=== PATIENT | female | born 1950 | race Caucasian/White ===

== ENCOUNTER 2018-06-19 19:29 | Emergency (ER) | payer MEDICARE ==
[~2018-06-19 19:29] MED LIST: ACETAMINOPHEN325 M1 PO; ALBUTEROL SULF8.5 GM NEB; ALENDRONATE SOD70 MG PO; ALPRAZOLAM ER1 MG PO; AMITIZA24 MCG PO; AMLODIPINE BESYL5 MG PO; AMLODIPINE PO; BACLOFEN10 MG PO; BENZONATATE100 MG PO; BUPROPION HCL75 MG PO; CHLORZOXAZONE500 MG PO; CLONIDINE HCL0.1 MG PO; DICYCLOMINE HCL20 MG PO; FLUOXETINE HCL20 MG PO; FLUOXETINE HCL40 MG PO; FLUTICASONE; FUROSEMIDE40 MG PO; GABAPENTIN400 MG PO; GEODON20 MG PO; K DUR10 MEQ PO; LIDOCAINE1 EA TD; METRONIDAZOLE500 MG PO; NAPROXEN500 MG PO; NORCO 5-325 TA1 EACH PO; PANTOPRAZOLE SO40 MG PO; PROLIA60 MG/1 ML INJ; PROPRANOLOL HCL40 MG PO; REQUIP0.5 MG PO; SUCRALFATE PO; TAMSULOSIN HCL0.4 MG PO; TRAZODONE HCL100 MG PO; ULTRAM50 MG PO; VICODIN ES 7.51 EACH PO; ZOFRAN4 MG PO; [UNRECOGNIZED DRUG - MIXTURE]
== END 2018-06-19 20:07 | disposition short-term general hospital (02) ==
LOC: ER 19:29
DX: M54.9 Dorsalgia, unspecified (principal)

== ENCOUNTER 2018-06-22 08:16 | Emergency (ER) | payer MEDICARE ==
[~2018-06-22] VITALS: Ht 165.1 cm; Wt 74.8 kg
[2018-06-22] MEDS ORDERED: ATORVASTATIN CA20 MG PO (09:01)
[2018-06-22] MEDS ORDERED: HYDROMORPHONE 1MG/1ML INJ IV STA (09:06)
[2018-06-22] MEDS ORDERED: ONDANSETRON HCL INJ 2 MG/ML VIAL IV STA (09:06)
[2018-06-22] MEDS ORDERED: SERTRALINE HCL50 MG (09:07)
[2018-06-22] MEDS ORDERED: HYDROMORPHONE 2MG/ML 2 MG/ML ML IV ONE (09:15)
[2018-06-22 09:17] LABS: CLARITY,URINE SL CLOUDY (CLEAR); COLOR,URINE YELLOW (YELLOW); KETONES,URINE NEGATIVE (NEGATIVE); LEUKOCYTE ESTERASE ,URINE NEGATIVE (NEGATIVE); NITRITE,URINE NEGATIVE (NEGATIVE); PROTEIN,URINE DIPSTICK NEGATIVE (NEGATIVE); URINE UROBILINOGEN 0.2 mg/dL (0.2 - 1)
[2018-06-22 09:18] LABS: BILIRUBIN,URINE NEGATIVE (NEGATIVE)
[2018-06-22 09:28] LABS: EPITHELIAL CELLS,URINE FEW /LPF; RBC,URINE 0-5 /HPF (0-5)
[2018-06-22 09:32] LABS: TRANSITIONAL EPI CELLS,URINE RARE
--- NOTE | 2018-06-22 10:16 | Diagnostic Imaging Report ---
EXAMINATION: CT of the lumbar spine HISTORY: Acute low back pain with bilateral radiculopathy COMPARISON: Abdomen CT on 06/24/2017 TECHNIQUE: Multidetector helical axial images were obtained without contrast from L1 to S1. The images were reconstructed using bone and soft tissue algorithms and were viewed in axial, sagittal, and coronal planes. Dose modulation, iterative reconstruction, and/or weight based adjustment of the mA/kV was utilized to reduce the radiation dose to as low as reasonably achievable. FINDINGS: Alignment: Prominent lumbar dextroscoliosis from T12 to L4. Thoracolumbar kyphosis. Right lateral spondylolisthesis at L3-L4. Vertebral bodies: Normal height and density. Prominent chronic endplate degenerative changes mainly on the left side at L2-L3 and T12-L1. Paraspinal muscles: Mild atrophy of the paraspinal muscles. Incidentally noted prominent Tarlov cysts from S1-S2 to S3-S4. Intervertebral disks: L1-L2: Symmetric disc bulge and facet arthrosis. Mild right foraminal stenoses. L2-L3: Decreased disc height and vacuum phenomena, asymmetric to the right disc osteophyte and facet arthrosis. Moderate right foraminal stenoses. L3-L4: Asymmetric to the right disc bulge, vacuum phenomenon and facet arthrosis. Mild right foraminal stenoses. L4-L5: Asymmetric to the right disc bulge, bilateral facet arthrosis. Mild to moderate bilateral foraminal stenoses. L5-S1: Mild symmetric disc bulge and facet arthrosis. Mild foraminal narrowing mainly on the right. IMPRESSION: 1. No acute fractures or dislocations. 2. Persistent prominent lumbar kyphoscoliosis as described. 3. Moderate foraminal stenosis on the right at L2-L3 and mild at L3-4 as well as mild to moderate bilaterally at L4-5 due to degenerative changes and scoliosis. Signed by: Dr. Gina Coleman M.D. on 06/22/2018 10:12 AM
[2018-06-22 11:04] VITALS: BP 158/85
== END 2018-06-22 11:26 | disposition home or self-care (01) ==
LOC: ER 08:16
DX: M54.5 Low back pain (principal); S39.012A Strain of muscle, fascia and tendon of lower back, initial encounter; N30.90 Cystitis, unspecified without hematuria; G35 Multiple sclerosis; J44.9 Chronic obstructive pulmonary disease, unspecified
CPT/HCPCS: 72131; 81001; 87086; 99284; J1170; J2405

== ENCOUNTER → 2018-07-17 | Day surgery (SDC) | payer OTHER ==
--- NOTE | 2018-07-14 13:15 | Diagnostic Imaging Report ---
EXAMINATION: CHEST 2 VIEWS INDICATION: \S\PER PROTOCOL \S\PRE ADMIT COMPARISON: CT abdomen and pelvis 02/11/2017 FINDINGS: PA and lateral views TUBES and LINES: None. LUNGS: Lungs are well inflated. Linear scarring in the left retrocardiac region is unchanged. Near resolution of previously noted reticular nodular opacities in the left lower lobe. Mild bronchiectasis in both lower lobes are stable. No new consolidations or pulmonary edema. PLEURA: No pleural effusion or pneumothorax. HEART AND MEDIASTINUM: The cardiomediastinal silhouette is unremarkable. BONES AND SOFT TISSUES: Cervical spine fusion. Soft tissues are unremarkable. UPPER ABDOMEN: No free air under the diaphragm. IMPRESSION: No acute thoracic abnormality. Signed by: Dr. Lali Yost M.D. on 07/14/2018 1:12 PM
[2018-07-14 13:36] LABS: BASOPHILS # (AUTO) 0.1 (0.0-0.1); BASOPHILS % 0.7 % (0.0-1.0); EOSINOPHILS # (AUTO) 0.2 (0.0-0.4); EOSINOPHILS % 2.7 % (0.0-6.0); HEMATOCRIT 36.3 % (34.2-44.1); HEMOGLOBIN 11.9 g/dL (12.0-16.0); LYMPHOCYTES # (AUTO) 1.6 (1.0-3.2); LYMPHOCYTES % 19.7 % (18.0-39.1); MEAN CORPUSCULAR HEMOGLOBIN 28.5 pg (28-32); MEAN CORPUSCULAR HGB CONC 32.8 g/dL (31-35); MEAN CORPUSCULAR VOLUME 86.8 fL (81-99); MONOCYTES # (AUTO) 0.5 (0.2-0.8); MONOCYTES % 6.4 % (4.4-11.3); NEUTROPHILS # (AUTO) 5.8 (2.1-6.9); PLATELET COUNT 395 x10e3/uL (140-360); RED BLOOD COUNT 4.18 x10e6/uL (3.6-5.1); RED CELL DISTRIBUTION WIDTH 13.6 % (11.7-14.4)
[~2018-07-17] MED LIST changes: +ATORVASTATIN CA20 MG PO; +BUPIVACAINE 0.5%/EPI 30 ML SDV INJ ONE; +BUPROPION HCL100 MG PO; +CARVEDILOL3.125 MG PO; +CEFTRIAXONE SOD 1 GM VIAL ONE; +CLINDAMYCIN PHOS 900MG/ 50ML 50 ML IV ONE; +DEXAMETHASONE SOD PHOS INJ 4 MG/ML VIAL ONE; +EPHEDRINE SULFATE INJ 50 MG/10 ML SYR ONE; +FENTANYL CITRATE/PF 100MCG/2 ML INJ ONE; +FLOMAX0.4 MG PO; +GABAPENTIN300 MG PO; +LIDOCAINE 2%/ EPINEPHRINE 20ML MDV ONE; +LIDOCAINE HCL 2% LOCAL INJ 5 ML SDV VIAL INJ ONE; +MIDAZOLAM HCL 2 MG/2 ML VIAL ONE; +ONDANSETRON HCL INJ 2 MG/ML VIAL ONE; +PROPOFOL IV EMULSION 10 MG/ML 20 ML VIAL ONE; +ROCURONIUM BROMIDE 10 MG/ML 5ML VIAL ONE; +SERTRALINE HCL50 MG; +SERTRALINE HCL50 MG PO; +SEVOFLURANE INHAL SOLN 250 ML PEN BTL ONE; +SUCCINYLCHOLINE 200 MG/10 ML SYR ONE
[2018-07-17 17:25] VITALS: BP 157/76
--- OUTSIDE RECORDS SUMMARY | 2018-07-21 13:25 | XMS REPORT | Summary of Care ---
Author Author Anne Thomas Organization Unknown Address Unknown Phone Unavailable Care Team Providers Care Medical Office Administrator Name Role Phone Anne Thomas Unavailable Unavailable LIZETTE Roman, LUBA Unavailable Unavailable ASHA Roman, REJI Unavailable Unavailable TIFFANY Roman, ANNETTE Unavailable Unavailable MAGUI PPaxtonAPaxton, DAPHNIE Unavailable Unavailable HEATH BRONSON UT, DOLORES Doe Unavailable Unavailable HEATH Roman, DOLORES Unavailable Unavailable ASHA BRONSON PA, REJI Unavailable Unavailable MAGUI PA UT, DAPHNIE CALI Unavailable Unavailable BOURNE AHP UT, BRIAN Unavailable Unavailable Unavailable Unavailable Functional Status Name Dates Details Functional status health issues are not documented Status: Name Dates Details Cognitive status health issues are not documented Status: Problems Name Dates Details Fracture of femur, distal, right, closed (821.20, S72.401A) Status: Active Synovial cyst of left popliteal space (727.51, M71.22) Status: Active Pelvic pain (R10.2) Status: Active High globulin level Status: Active Vitamin D deficiency (268.9, E55.9) Status: Active Impaired fasting glucose (790.21, R73.01) Status: Active Left knee pain (719.46, M25.562) Status: Active Barbosa's cyst of knee (727.51, M71.20) Status: Active Urinary incontinence, unspecified type (788.30, R32) Status: Active Chronic superficial gastritis without bleeding (535.10, K29.30) Status: Active History of peptic ulcer disease (V12.71, Z87.11) Status: Active History of SIADH (V12.29, Z86.39) Status: Active History of seizure (V12.49, Z87.898) Status: Resolved Osteoporosis (733.00, M81.0) Status: Active SIADH (syndrome of inappropriate ADH production) (253.6, E22.2) Status: Active Constipation, chronic (564.00, K59.09) Status: Active History of pancreatitis (V12.79, Z87.19) Status: Active Incontinence of feces, unspecified fecal incontinence type (787.60, R15.9) Status: Active History of watermelon inspector current use of systemic steroids (V58.65, Z79.52) Status: Resolved Urinary frequency (788.41, R35.0) Status: Active Stomatitis and mucositis (528.00, K12.1) Status: Active Hepatitis C virus infection, unspecified chronicity (070.70, B19.20) Status: Active Other hemorrhoids (455.6, K64.8) Status: Active Cervicalgia (723.1, M54.2) Status: Active Right hand weakness (728.87, R29.898) Status: Active S/P cervical spinal fusion (V45.4, Z98.1) Status: Active Bronchiectasis (494.0, J47.9) Status: Active Urine frequency (788.41, R35.0) Status: Active Cubital tunnel syndrome, bilateral (354.2, G56.23) Status: Active On home oxygen therapy (V46.2, Z99.81) Status: Active Dysuria (788.1, R30.0) Status: Active Abnormal thyroid blood test (790.6, R79.89) Status: Active Urinary tract infection (599.0, N39.0) Status: Active Abrasion of right foot, sequela (906.2, S90.811S) Status: Active Low HDL (under 40) (272.5, E78.6) Status: Active At risk for cardiovascular event (V49.89, Z91.89) Status: Active Multiple sclerosis (340, G35) Status: Active Numbness and tingling (782.0, R20.0) Status: Active COPD (chronic obstructive pulmonary disease) (496, J44.9) Status: Active Recurrent UTI (599.0, N39.0) Status: Active Flu vaccine need (V04.81, Z23) Status: Active Acute UTI (599.0, N39.0) Status: Active RLS (restless legs syndrome) (333.94, G25.81) Status: Active Tremor (781.0, R25.1) Status: Active Anemia (285.9, D64.9) Status: Active Encounter for screening for eye and ear disorders (V80.2, Z13.5) Status: Active Neuropathy (355.9, G62.9) Status: Active Locking finger joint (718.94, M24.849) Status: Active Need for shingles vaccine (V04.89, Z23) Status: Active Need for Tdap vaccination (V06.1, Z23) Status: Active Carpal tunnel syndrome of left wrist (354.0, G56.02) Status: Active Chronic pain (338.29, G89.29) Status: Active Dyspnea (786.09, R06.00) Status: Active Benign essential HTN (401.1, I10) Status: Active Anxiety (300.00, F41.9) Status: Active Depression (311, F32.9) Status: Active Medications Name Dates Details AmLODIPine Besylate 5 MG Oral Tablet TAKE 1 TABLET DAILY DIRECTED. Quantity: 30 DAPHNIE AWAD * Start : 24-Oct-2017 Active Fluticasone Propionate 50 MCG/ACT Nasal Suspension * Refills: 0 * Start : 24-Oct-2017 Active 9.9 ML Bottle Diclofenac Sodium 1 % Transdermal Gel APPLY 4 GRAMS TOPICALLY TO AFFECTED AREA (LOWER EXTREMITIES) 4 TIMES DAILY. DO N OT APPLY MORE THAN 16 GRAMS DAILY TO ANY ONE AFFECTED JOINT * Quantity: 5 Refills: 3 LUBA BAUER M.D. * Start : 12-Nov-2017 Active 100 GM Tube Albuterol Sulfate (2.5 MG/3ML) 0.083% Inhalation Nebulization Solution USE 1 UNIT DOSE EVERY 4-6 HOURS NEEDED FOR WHEEZING, SOB * Quantity: 2 Refills: 2 DAPHNIE AWAD Active 60 x 3 ML Plas Cont Iron 325 (65 Fe) MG Oral Tablet TAKE 1 TABLET TWICE DAILY WITH MEALS. * Quantity: 60 Refills: 2 REJI BARRY M.D. * Start : 09-Jan-2018 Active Tdap (Adacel) Inject at pharmacy as directed * Quantity: 1 Refills: 0 DAPHNIE AWAD * Start : 27-Apr-2018 Active 0.5 ML Syringe Atorvastatin Calcium 40 MG Oral Tablet TAKE 1 TABLET DAILY. * Quantity: 90 Refills: 1 DAPHNIE AWAD Active Sertraline HCl - 100 MG Oral Tablet TAKE 1.5 TABLET DAILY FOR 5 DAYS AND THEN TAKE 2 TABLET DAILY. * Quantity: 60 Refills: 2 ANNETTE ALLEN M.D. Active Carvedilol 6.25 MG Oral Tablet TAKE 1 TABLET BY MOUTH TWICE DAILY WITH MEALS * Quantity: 60 Refills: 0 SATTAR M.Yael, REJI * Start : 03-Jul-2018 Active Shingrix 50 MCG Intramuscular Suspension Reconstituted IM: 0.5 mL 2-dose series at 0 and 2 to 6 months * Quantity: 1 Refills: 1 SILVERTAR Abel, REJI * Start : 03-Jul-2018 Active Alendronate Sodium 70 MG Oral Tablet TAKE 1 TABLET BY MOUTH ONCE A WEEK * Quantity: 4 Refills: 0 DAPHNIE AWAD * Start : 10-Jul-2018 Active GlycoLax Oral Powder MIX 1 CAPFUL IN 8 OUNCES OF WATER AND DRINK AT BEDTIME NEEDED FOR CONSTIPATIO N. * Refills: 0 * Start : 24-Oct-2017 Active 119 GM Bottle Tamsulosin HCl - 0.4 MG Oral Capsule TAKE 1 CAPSULE DAILY * Quantity: 90 Refills: 1 * Start : 24-Oct-2017 Active Nebulizer/Tubing/Mouthpiece KIT USE DIRECTED. * Quantity: 1 Refills: 0 SATTAR M.Marta., REJI * Start : 29-Dec-2017 Active Tdap (Adacel) IM X 1 * Quantity: 1 Refills: 0 SATTAR M.D., REJI * Start : 03-Jul-2018 Active 0.5 ML Syringe BuPROPion HCl ER (SR) 100 MG Oral Tablet Extended Release 12 Hour TAKE 1 TABLET DAILY. * Quantity: 30 Refills: 1 ANNETTE ALLEN M.D. * Start : 10-Jul-2018 End : 13-Sep-2018 Active LORazepam 1 MG Oral Tablet TAKE 1 TABLET DAILY NEEDED. * Quantity: 10 Refills: 0 ANNETTE ALLEN M.D. * Start : 15-Jul-2018 Active Allergies and Adverse Reactions Name Dates Details No Known Drug Allergies (Allergy) Status: Active Past Medical History Name Dates Details History of arthritis (V13.4, Z87.39) Status: Resolved History of Hospital discharge follow-up (V67.59, Z09) Status: Resolved History of Leg pain (729.5, M79.606) Status: Resolved History of Leg swelling (729.81, M79.89) Status: Resolved History of Limb pain (729.5, M79.609) Status: Resolved History of watermelon inspector current use of systemic steroids (V58.65, Z79.52) Status: Resolved History of seizure (V12.49, Z87.898) Status: Resolved History of weakness (V13.89, Z87.898) Status: Resolved Procedures Procedure Dates Details [QLH] HEPATITIS A AB, TOTAL Date: 10-Jul-2018 [QLH] HEPATITIS B SURFACE ANTIBODY (QUANT) Date: 10-Jul-2018 [QH] HEPATITIS B SURFACE ANTIGEN W/REFL CONFIRM Date: 10-Jul-2018 XRAY Chest 2 views [id number] Date: 10-Jul-2018 History of Cervical laminectomy Completed History of section Completed History of Knee surgery Completed Immunization Name Dates Details Fluzone Quadrivalent 0.5 ML Intramuscular Suspension Prefilled Syringe on: 06-Aug-2017 Prevnar 13 Intramuscular Suspension on: 06-Aug-2017 Fluzone High-Dose 0.5 ML Intramuscular Suspension Prefilled Syringe Lot #: [id number] on: 20-Jun-2018 Family History Name Dates Details FHx: Parkinson's disease (V17.2, Z82.0) Status: Active Name Dates Details FHx: colon cancer (V16.0, Z80.0) Status: Active Family history of liver cancer (V16.0, Z80.0) Status: Active Social History Name Dates Details - Status: Name Dates Details Former smoker Vital Signs Date Test Result Details [id number]-[id number] Physical Findings 21 Status: Comments: RASHAAD-7 Screening 72-Faq-252303:30 Physical Findings 17 Status: Comments: PHQ-9 Adult Depression Screening 83-Toa-[id number]:24 BP Systolic 121 mm[Hg] Status: Comments: Location: LUE; Position: Sitting BP Diastolic 71 mm[Hg] Status: Comments: Location: LUE; Position: Sitting Height 66 in Status: Weight 160.3125 lb Status: Body Mass Index Calculated 25.88 kg/m2 Status: Body Surface Area Calculated 1.82 m2 Status: Temperature 96.4 f Status: Comments: Method: Temporal Heart Rate 83 /min Status: Respiration Rate 16 /min Status: 5-Oct-43917:15 BP Systolic 176 mm[Hg] Status: Comments: Location: LUE; Position: Sitting BP Diastolic 90 mm[Hg] Status: Comments: Location: LUE; Position: Sitting Heart Rate 86 /min Status: :10 BP Systolic 158 mm[Hg] Status: Comments: Location: LUE; Position: Sitting BP Diastolic 92 mm[Hg] Status: Comments: Location: LUE; Position: Sitting Height 66 in Status: Weight 159.2 lb Status: Body Mass Index Calculated 25.7 kg/m2 Status: Body Surface Area Calculated 1.82 m2 Status: Temperature 97.5 f Status: Comments: Method: Oral Heart Rate 86 /min Status: Respiration Rate 16 /min Status: O2 SAT 100 % Status: Comments: Source: Nasal Cannula :28 BP Systolic 156 mm[Hg] Status: BP Diastolic 85 mm[Hg] Status: Heart Rate 92 /min Status: :27 BP Systolic 153 mm[Hg] Status: Comments: Location: LUE; Position: Sitting BP Diastolic 84 mm[Hg] Status: Comments: Location: LUE; Position: Sitting Height 66 in Status: Weight 165.5 lb Status: Body Mass Index Calculated 26.71 kg/m2 Status: Body Surface Area Calculated 1.85 m2 Status: Temperature 96.7 f Status: Comments: Method: Temporal Heart Rate 78 /min Status: Respiration Rate 16 /min Status: :36 BP Systolic 134 mm[Hg] Status: BP Diastolic 76 mm[Hg] Status: Heart Rate 87 /min Status: :35 BP Systolic 144 mm[Hg] Status: Comments: Location: LUE; Position: Sitting BP Diastolic 81 mm[Hg] Status: Comments: Location: LUE; Position: Sitting Height 66 in Status: Weight 164.4375 lb Status: Body Mass Index Calculated 26.54 kg/m2 Status: Body Surface Area Calculated 1.84 m2 Status: Temperature 97.7 f Status: Comments: Method: Temporal Heart Rate 84 /min Status: Respiration Rate 16 /min Status: :43 BP Systolic 132 mm[Hg] Status: Comments: Location: LUE; Position: Sitting BP Diastolic 84 mm[Hg] Status: Comments: Location: LUE; Position: Sitting Height 66 in Status: Weight 161 lb Status: Body Mass Index Calculated 25.99 kg/m2 Status: Body Surface Area Calculated 1.82 m2 Status: Temperature 97.8 f Status: Comments: Method: Temporal Heart Rate 102 /min Status: Respiration Rate 16 /min Status: Results Date Description Value Details [id number] [O] Urine Dipstick (In Office) Glucose NEGATIVE (Normal) LEUKOCYTES ++ (Abnormal) NITRITE NEGATIVE (Normal) UROBILINOGEN NORMAL (Normal) PROTEIN TRACE pH 5 (Normal) URINE BLOOD TRACE SPECIFIC GRAVITY 1020 (Normal) KETONES NEGATIVE (Normal) BILIRUBIN NEGATIVE (Normal) COLOR URINE YELLOW (Normal) :00 [[facility]] CULTURE, URINE, ROUTINE CULTURE (Abnormal) Comments: CULTURE, URINE, ROUTINE MICRO NUMBER: [id number] TEST STATUS: FINAL SPECIMEN SOURCE: NOT GIVEN SPECIMEN QUALITY: ADEQUATE RESULT: Greater than 100,000 CFU/mL of [place] a coli (ESBL) E.coli (ESBL) INT SILAS AMOX/CLAVULANATE S 4 AMPICILLIN R >=32 1 AMP/SULBACTAM S 8 CEFAZOLIN R >=64 2 CEFEPIME S 2 CEFTRIAXONE R >=64 CIPROFLOXACIN R >=4 GENTAMICIN S <=1 IMIPENEM S <=0.25 LEVOFLOXACIN R >=8 NITROFURANTOIN S <=16 PIP/TAZOBACTAM S <=4 TOBRAMYCIN S <=1 TRIMETHOPRIM/SULFA S <=20 ESBL RESULT: * 3S=Susceptible I=Intermediate R=Resistant *=Not TestedNR=Not Reported NN=See Therapy CommentsTHERAPY COMMENTS Note 1: Extended spectrum beta-lactamase (ESBL) producing organisms demonstrate decreased activity with penicillins, cephalosporins and aztreonam. Note 2: For uncomplicated UTI caused by E. coli, K. pneumoniae or P. mirabilis: Cefazolin is susceptible if SILAS <32 mcg/mL and predicts susceptible to the oral agents cefaclor, cefdinir, cefpodoxime, cefprozil, cefuroxime, cephalexin and loracarbef. Note 3: The organism has been confirmed as an ESBL segment producer. Plan of Care Name Dates Details Planned Observations Planned Goals not documented Planned Encounters Cardiology Referral Appointment; REJI BARRY M.D. On: 23-Jul-2018 10:30 Appointment; ROBERT MALIN M.D. On: 17-Aug-2018 14:30 Appointment; ETHAN HAQUE NP On: 19-Aug-2018 13:00 Instructions Name Dates Details Instructions not documented Encounters Appointment; ALYSON WALKER PA Encounter Diagnosis: Problem not documented On: 26-Aug-2016 11:45 Appointment; DAPHNIE KILGORE P.A. Encounter Diagnosis: Problem not documented On: 24-Oct-2017 12:30 Appointment; HYUN HERNANDEZ Encounter Diagnosis: Problem not documented On: 04-Nov-2017 14:00 Appointment; LUBA BAUER M.D. Encounter Diagnosis: Problem not documented On: 12-Nov-2017 15:00 Appointment; HIWOT BAH P.A. Encounter Diagnosis: Problem not documented On: 26-Nov-2017 9:15 Appointment; DAPHNIE KILGORE P.A. Encounter Diagnosis: Problem not documented On: 02-Dec-2017 13:30 Appointment; LUBA BAUER M.D. Encounter Diagnosis: Problem not documented On: 24-Dec-2017 14:00 Appointment; REJI BARRY M.D. Encounter Diagnosis: Problem not documented On: 26-Dec-2017 13:30 Appointment; REJI BARRY M.D. Encounter Diagnosis: Problem not documented On: 29-Dec-2017 13:30 Appointment; REJI BARRY M.D. Encounter Diagnosis: Problem not documented On: 09-Jan-2018 15:00 Appointment; REJI BARRY M.D. Encounter Diagnosis: Problem not documented On: 03-Feb-2018 13:00 Appointment; INESSA CADET M.D. Encounter Diagnosis: Problem not documented On: 25-Feb-2018 13:00 Appointment; DAPHNIE KILGORE P.A. Encounter Diagnosis: Problem not documented On: 13-Mar-2018 14:00 Appointment; LUBA BAUER M.D. Encounter Diagnosis: Problem not documented On: 19-Mar-2018 15:15 Appointment; REJI BARRY M.D. Encounter Diagnosis: Problem not documented On: 06-Apr-2018 14:00 Appointment; GIFTY RAMSEY LCSW Encounter Diagnosis: Problem not documented On: 09-Apr-2018 13:00 Appointment; DAPHNIE KILGORE P.A. Encounter Diagnosis: Problem not documented On: 27-Apr-2018 9:45 Appointment; DAPHNIE KILGORE P.A. Encounter Diagnosis: Problem not documented On: 07-May-2018 11:30 Appointment; GIFTY RAMSEY LCSW Encounter Diagnosis: Problem not documented On: 02-Jun-2018 14:00 Appointment; REJI BARRY M.D. Encounter Diagnosis: Problem not documented On: 03-Jun-2018 10:30 Appointment; GIFTY RAMSEY LCSW Encounter Diagnosis: Problem not documented On: 16-Jun-2018 11:00 Appointment; BRIAN BOURNE P.A. Encounter Diagnosis: Problem not documented On: 20-Jun-2018 9:30 Appointment; DAPHNIE KILGORE P.A. Encounter Diagnosis: Problem not documented On: 23-Jun-2018 9:45 Appointment; REJI BARRY M.D. Encounter Diagnosis: Problem not documented On: 03-Jul-2018 10:00 Appointment; ALEXA RENEE M.D. Encounter Diagnosis: Problem not documented On: 10-Jul-2018 9:30 Appointment; ANNETTE ALLEN M.D. Encounter Diagnosis: Problem not documented On: 15-Jul-2018 13:00
--- NOTE | 2018-08-26 00:57 | Operative Report ---
DATE OF PROCEDURE: July 17, 2018 PREOPERATIVE DIAGNOSIS: Refractory urge incontinence. POSTOPERATIVE DIAGNOSIS: Refractory urge incontinence. PROCEDURES PERFORMED 1. Complete InterStim system implantation with incision and implantation of tined quadripolar lead electrodes into the left foramen, S3. 2. Fluoroscopic guidance for needle placement. 3. Subcutaneous implantation of sacral nerve neurostimulator. 4. Electronic analysis and complex programming. ANESTHESIA: General. COMPLICATIONS: None. CLINICAL SUMMARY: Paulette Ley is a 67-year-old woman with refractory urge incontinence. She also has a history of urinary retention and has been managed with Flomax. The patient had failed other oral medications as well as behavioral therapy. She had a successful percutaneous InterStim stimulation test as an outpatient and elected to proceed with InterStim implant. She understands the risks of bleeding, infection, injury to adjacent structures, incontinence that persists and the fact that she will not be able to undergo MRI testing. She understood all these risks and elected to proceed. OPERATIVE PROCEDURE IN DETAIL: Informed consent was verified. Paulette Ley was properly identified, taken to the operating room where anesthesia was uneventfully begun. She was then carefully and gently repositioned in the prone position with all pressure points well padded. Pillows were placed under lower abdomen to flatten the sacrum and under the shins to allow the toes to dangle freely. The patient's back and buttocks were prepared and draped in usual sterile fashion. Needle was introduced into the left foramen S3. Depth of the needle was confirmed and adjusted fluoroscopically. Proper needle position was confirmed by direct observation of the lifting of the perineum or "bellowing" and observation of plantar flexion of the great toe utilizing the test stimulator box. The needle stylet was then removed and directional guidewire was then placed and confirmed fluoroscopically. The foramen needle was then removed. The incision was made peripherally to the directional guide. The dilator and introducer sheath were then placed over the directional guidewire and directed into the foramen until the opaque marker of the dilator was seen midway through the sacrum. The dilator obturator was unlocked and removed. The lead was then placed through the introducer sheath to the 1st white line. Position was checked fluoroscopically and the lead was then further advanced until 3 electrodes were visible well anterior to the sacrum. Each electrode was tested with similar findings as above. After satisfactory position was confirmed under continuous fluoroscopy, the introducer sheath was retracted thus deploying the lead tines into the perisacral tissue. Further incision was then made into the subcutaneous tissues posterior to the iliac crest and a pocket was created. A tunneling tool was then utilized to take the lead from the lead incision to the pocket site. The lead was then cleansed of bodily fluids with sterile water and dried thoroughly and then the lead was introduced into the InterStim pulse generator and the metal bands were aligned and the blue tip was clearly visible in the distal portion of the pulse generator header. The single set screw was tightened with a hex wrench. Pulse generator was then placed in the subcutaneous pocket following totally irrigating the pocket and verifying hemostasis. The programming head was then placed over the implanted neurostimulator and impedance was verified for all leads to be in appropriate limits. After implantation of neurostimulator was completed, both incisions were approximated in 2 layers utilizing absorbable suture. Mastisol, Steri-Strips and bio-occlusive dressings were applied. The patient was then uneventfully reversed from anesthesia, taken to recovery room in stable condition. Throughout the procedure, we used a combination of lidocaine and Marcaine with epinephrine for local anesthesia infiltration and postoperative pain control. In the recovery room, the patient was programmed to lead of optimum sensation, given explicit instructions as well as the patient tools programmer prior to discharge. There were no complications during the procedure. The patient tolerated the procedure well. Sponge, needle and instrument counts were correct times 2 at the end of the case. Estimated blood loss was minimal. Explicit postoperative instructions were given and we will follow the patient up in the office. Job#: [id number] GE cc:DOLORES JOE M.D.
== END | disposition home or self-care (01) ==
LOC: OR 11:49
PROVIDERS: ATTEND Urology
DX: N39.46 Mixed incontinence (principal); N20.0 Calculus of kidney; N13.30 Unspecified hydronephrosis; N31.9 Neuromuscular dysfunction of bladder, unspecified; N39.0 Urinary tract infection, site not specified; N81.89 Other female genital prolapse; N26.9 Renal sclerosis, unspecified; N95.2 Postmenopausal atrophic vaginitis; N13.5 Crossing vessel and stricture of ureter without hydronephrosis; N36.41 Hypermobility of urethra; G35 Multiple sclerosis; I10 Essential (primary) hypertension; J44.9 Chronic obstructive pulmonary disease, unspecified; E78.5 Hyperlipidemia, unspecified; K21.9 Gastro-esophageal reflux disease without esophagitis; Z01.810 Encounter for preprocedural cardiovascular examination; Z01.812 Encounter for preprocedural laboratory examination; Z01.818 Encounter for other preprocedural examination; Z99.81 Dependence on supplemental oxygen; Z79.82 Long term (current) use of aspirin; Z86.19 Personal history of other infectious and parasitic diseases; Z96.651 Presence of right artificial knee joint; Z87.891 Personal history of nicotine dependence; Z80.52 Family history of malignant neoplasm of bladder
CPT/HCPCS: 36415; 64581; 64590; 71046; 76000; 85025; 93005; 95972; C1778; C1787; C1894; J0696; J1100; J2001 ×2; J2250; J2405; L8679; L8696

== ENCOUNTER 2018-08-20 16:51 | Observation (INO) | payer OTHER ==
[~2018-08-20] VITALS: Ht 165.1 cm; Wt 75.8 kg
[~2018-08-20 16:51] MED LIST changes: -BUPIVACAINE 0.5%/EPI 30 ML SDV INJ ONE; -CEFTRIAXONE SOD 1 GM VIAL ONE; -CLINDAMYCIN PHOS 900MG/ 50ML 50 ML IV ONE; -DEXAMETHASONE SOD PHOS INJ 4 MG/ML VIAL ONE; -EPHEDRINE SULFATE INJ 50 MG/10 ML SYR ONE; -FENTANYL CITRATE/PF 100MCG/2 ML INJ ONE; -GABAPENTIN300 MG PO; -LIDOCAINE 2%/ EPINEPHRINE 20ML MDV ONE; -LIDOCAINE HCL 2% LOCAL INJ 5 ML SDV VIAL INJ ONE; -MIDAZOLAM HCL 2 MG/2 ML VIAL ONE; -ONDANSETRON HCL INJ 2 MG/ML VIAL ONE; -PROPOFOL IV EMULSION 10 MG/ML 20 ML VIAL ONE; -ROCURONIUM BROMIDE 10 MG/ML 5ML VIAL ONE; -SEVOFLURANE INHAL SOLN 250 ML PEN BTL ONE; -SUCCINYLCHOLINE 200 MG/10 ML SYR ONE
--- OUTSIDE RECORDS SUMMARY | 2018-08-20 16:55 | XMS REPORT | Summary of Care ---
Author Author KIMO Roman, ROBERT Geronimo Unknown Address Unknown Phone Unavailable Care Team Providers Care Pecan Cleaner Name Role Phone LIZETTE Roman, LUBA Unavailable Unavailable ASHA Roman, REJI Unavailable Unavailable TIFFANY Roman, ANNETTE Unavailable Unavailable MAGUI P.A., DAPHNIE Unavailable Unavailable KIMO Roman, ROBERT Unavailable Unavailable HEATH BRONSON UT, DOLORES Doe Unavailable Unavailable HEATH Roman, DOLORES Unavailable Unavailable ASHA BRONSON UT, REJI Unavailable Unavailable MAGUI PA UT, DAPHNIE CALI Unavailable Unavailable TAYLA HANCOCK UT, BRIAN Unavailable Unavailable Unavailable Unavailable Functional Status Name Dates Details Functional status health issues are not documented Status: Name Dates Details Cognitive status health issues are not documented Status: Problems Name Dates Details Synovial cyst of left popliteal space (727.51, M71.22) Status: Active High globulin level Status: Active Vitamin D deficiency (268.9, E55.9) Status: Active Left knee pain (719.46, M25.562) Status: Active Barbosa's cyst of knee (727.51, M71.20) Status: Active Chronic superficial gastritis without bleeding (535.10, K29.30) Status: Active Constipation, chronic (564.00, K59.09) Status: Active Incontinence of feces, unspecified fecal incontinence type (787.60, R15.9) Status: Active History of shelter current use of systemic steroids (V58.65, Z79.52) Status: Resolved Stomatitis and mucositis (528.00, K12.1) Status: Active Other hemorrhoids (455.6, K64.8) Status: Active Right hand weakness (728.87, R29.898) Status: Active Cubital tunnel syndrome, bilateral (354.2, G56.23) Status: Active Low HDL (under 40) (272.5, E78.6) Status: Active At risk for cardiovascular event (V49.89, Z91.89) Status: Active Tremor (781.0, R25.1) Status: Active Anemia (285.9, D64.9) Status: Active Locking finger joint (718.94, M24.849) Status: Active Need for shingles vaccine (V04.89, Z23) Status: Active Need for Tdap vaccination (V06.1, Z23) Status: Active Carpal tunnel syndrome of left wrist (354.0, G56.02) Status: Active Dyspnea (786.09, R06.00) Status: Active History of Fracture of femur, distal, right, closed (821.20, S72.401A) Status: Resolved Benign essential HTN (401.1, I10) Status: Active COPD (chronic obstructive pulmonary disease) (496, J44.9) Status: Active Mixed hyperlipidemia (272.2, E78.2) Status: Active Impaired fasting glucose (790.21, R73.01) Status: Active History of hepatitis C virus infection (V12.09, Z86.19) Status: Resolved Bronchiectasis (494.0, J47.9) Status: Active Abnormal thyroid blood test (790.6, R79.89) Status: Active History of seizure (V12.49, Z87.898) Status: Resolved History of SIADH (V12.29, Z86.39) Status: Active Depression (311, F32.9) Status: Active History of peptic ulcer disease (V12.71, Z87.11) Status: Active History of pancreatitis (V12.79, Z87.19) Status: Active Multiple sclerosis (340, G35) Status: Active On home oxygen therapy (V46.2, Z99.81) Status: Active Osteoporosis (733.00, M81.0) Status: Active Recurrent UTI (599.0, N39.0) Status: Active S/P cervical spinal fusion (V45.4, Z98.1) Status: Active RLS (restless legs syndrome) (333.94, G25.81) Status: Active Urinary incontinence, unspecified type (788.30, R32) Status: Active Advance directive discussed with patient (V65.49, Z71.89) Status: Active Depression screen (V79.0, Z13.31) Status: Active Risk for falls (V15.88, Z91.81) Status: Active BMI (body mass index) 20.0-29.9 Status: Active Anxiety (300.00, F41.9) Status: Active Cervicalgia (723.1, M54.2) Status: Active Chronic pain (338.29, G89.29) Status: Active Other polyneuropathy (357.89, G62.89) Status: Active Screening mammogram, encounter for (V76.12, Z12.31) Status: Active Post-menopausal (V49.81, Z78.0) Status: Active Osteoporosis screening (V82.81, Z13.820) Status: Active Need for hepatitis A vaccination (V05.3, Z23) Status: Active Need for hepatitis B vaccination (V05.3, Z23) Status: Active UTI symptoms (788.99, R39.9) Status: Active Allergic rhinitis (477.9, J30.9) Status: Active Masseter muscle spasm (728.85, M62.838) Status: Active Nausea and vomiting (787.01, R11.2) Status: Active Abnormal blood chemistry (790.6, R79.9) Status: Active Medications Name Dates Details AmLODIPine Besylate 5 MG Oral Tablet TAKE 1 TABLET DAILY DIRECTED. Quantity: 45 REJI BARRY M.D. * Start : 24-Oct-2017 Active Fluticasone Propionate 50 MCG/ACT Nasal Suspension USE 2 SPRAYS IN EACH NOSTRIL ONCE DAILY * Quantity: 1 Refills: 0 DAPHNIE AWAD * Start : 24-Oct-2017 Active 9.9 ML Bottle Tamsulosin HCl - 0.4 MG Oral Capsule TAKE 1 CAPSULE DAILY * Quantity: 90 Refills: 1 * Start : 24-Oct-2017 Active GlycoLax Oral Powder MIX 1 CAPFUL IN 8 OUNCES OF WATER AND DRINK AT BEDTIME NEEDED FOR CONSTIPATIO N. * Refills: 0 * Start : 24-Oct-2017 Active 119 GM Bottle Alendronate Sodium 70 MG Oral Tablet TAKE 1 TABLET BY MOUTH ONCE A WEEK * Quantity: 4 Refills: 0 MAGUI Romulo.DAPHNIE Copeland * Start : 10-Jul-2018 Active Diclofenac Sodium 1 % Transdermal Gel APPLY 4 GRAMS TOPICALLY TO AFFECTED AREA (LOWER EXTREMITIES) 4 TIMES DAILY. DO N OT APPLY MORE THAN 16 GRAMS DAILY TO ANY ONE AFFECTED JOINT * Quantity: 5 Refills: 3 LIZETTE Roman, LUBA * Start : 12-Nov-2017 Active 100 GM Tube Albuterol Sulfate (2.5 MG/3ML) 0.083% Inhalation Nebulization Solution USE 1 UNIT DOSE EVERY 4-6 HOURS NEEDED FOR WHEEZING, SOB * Quantity: 2 Refills: 2 DAPHNIE AWAD Active 60 x 3 ML Plas Cont Nebulizer/Tubing/Mouthpiece KIT USE DIRECTED. * Quantity: 1 Refills: 0 ASHA Roman, REJI * Start : 29-Dec-2017 Active Atorvastatin Calcium 40 MG Oral Tablet TAKE 1 TABLET DAILY. * Quantity: 90 Refills: 1 DAPHNIE AWAD Active Sertraline HCl - 100 MG Oral Tablet TAKE 2 TABLET DAILY. * Quantity: 180 Refills: 0 ANNETTE ALLEN M.D. Active Carvedilol 6.25 MG Oral Tablet TAKE 1 TABLET BY MOUTH TWICE A DAY WITH MEALS * Quantity: 60 Refills: 1 ASHA Roman, REJI * Start : 28-Jul-2018 Active Shingrix 50 MCG Intramuscular Suspension Reconstituted IM: 0.5 mL 2-dose series at 0 and 2 to 6 months * Quantity: 1 Refills: 1 ASHA Roman, REJI * Start : 03-Jul-2018 Active Tdap (Adacel) IM X 1 * Quantity: 1 Refills: 0 ASHA M.DPaxton, REJI * Start : 03-Jul-2018 Active 0.5 ML Syringe BuPROPion HCl ER (SR) 100 MG Oral Tablet Extended Release 12 Hour TAKE 1 TABLET BY MOUTH EVERY DAY * Quantity: 30 Refills: 1 TIFFANY Roman, CAROLYNOJIE * Start : 03-Aug-2018 Active Allergies and Adverse Reactions Name Dates Details No Known Drug Allergies (Allergy) Status: Active Past Medical History Name Dates Details History of arthritis (V13.4, Z87.39) Status: Resolved History of Fracture of femur, distal, right, closed (821.20, S72.401A) Status: Resolved History of hepatitis C virus infection (V12.09, Z86.19) Status: Resolved History of Hospital discharge follow-up (V67.59, Z09) Status: Resolved History of Leg pain (729.5, M79.606) Status: Resolved History of Leg swelling (729.81, M79.89) Status: Resolved History of Limb pain (729.5, M79.609) Status: Resolved History of long term care pharmacist current use of systemic steroids (V58.65, Z79.52) Status: Resolved History of seizure (V12.49, Z87.898) Status: Resolved History of weakness (V13.89, Z87.898) Status: Resolved Procedures Procedure Dates Details [QLH] URINALYSIS, COMPLETE Date: 28-Jul-2018 [QLH] CMP W/EGFR Date: 03-Aug-2018 XRAY Chest 2 views [id number] Date: 10-Jul-2018 [place] Digital Mammo Screening Matias G0202 Date: 23-Jul-2018 MA Bone Density DXA Dual Energy [id number] Date: 23-Jul-2018 History of Cervical laminectomy Completed History of section Completed History of Knee surgery Completed Immunization Name Dates Details Fluzone Quadrivalent 0.5 ML Intramuscular Suspension Prefilled Syringe on: 06-Aug-2017 Prevnar 13 Intramuscular Suspension on: 06-Aug-2017 Fluzone High-Dose 0.5 ML Intramuscular Suspension Prefilled Syringe Lot #: [id number] on: 20-Jun-2018 Hepatitis A, adult Lot #: [id number] on: 23-Jul-2018 Hepatitis B, adult Lot #: [id number] on: 23-Jul-2018 Family History Name Dates Details FHx: Parkinson's disease (V17.2, Z82.0) Status: Active Name Dates Details FHx: colon cancer (V16.0, Z80.0) Status: Active Family history of liver cancer (V16.0, Z80.0) Status: Active Social History Name Dates Details - Status: Name Dates Details Former smoker Vital Signs Date Test Result Details [id number]-[id number]:06 BP Systolic 140 mm[Hg] Status: Comments: Location: LUE; Position: Sitting BP Diastolic 79 mm[Hg] Status: Comments: Location: LUE; Position: Sitting Height 66 in Status: Weight 162 lb Status: Body Mass Index Calculated 26.15 kg/m2 Status: Body Surface Area Calculated 1.83 m2 Status: Heart Rate 78 /min Status: 22-Jap-257163:06 BP Systolic 160 mm[Hg] Status: BP Diastolic 87 mm[Hg] Status: Heart Rate 96 /min Status: 09-Rbc-236119:05 BP Systolic 167 mm[Hg] Status: Comments: Location: LUE; Position: Sitting BP Diastolic 92 mm[Hg] Status: Comments: Location: LUE; Position: Sitting Height 66 in Status: Weight 163.0625 lb Status: Body Mass Index Calculated 26.32 kg/m2 Status: Body Surface Area Calculated 1.83 m2 Status: Heart Rate 98 /min Status: Temperature 98.3 f Status: Comments: Method: Temporal Respiration Rate 16 /min Status: 86-Vka-777953:12 Physical Findings 17 Status: Comments: PHQ-9 Adult Depression Screening 86-Tzh-545697:15 BP Systolic 123 mm[Hg] Status: Comments: Location: LUE; Position: Sitting BP Diastolic 76 mm[Hg] Status: Comments: Location: LUE; Position: Sitting Height 66 in Status: Weight 163.375 lb Status: Body Mass Index Calculated 26.37 kg/m2 Status: Body Surface Area Calculated 1.84 m2 Status: Heart Rate 79 /min Status: Comments: Location: L Brachial Artery; Temperature 97.5 f Status: Comments: Method: Temporal Respiration Rate 16 /min Status: Results Date Description Value Details 57-Fkd-[id number]:30 Tobacco Use Screening Completed DONE :53 [O] Urine Dipstick (In Office) Glucose NEGATIVE (Normal) LEUKOCYTES + (Abnormal) NITRITE NEGATIVE (Normal) UROBILINOGEN NORMAL (Normal) PROTEIN TRACE pH 5 (Normal) URINE BLOOD TRACE SPECIFIC GRAVITY 1.010 (Normal) KETONES NEGATIVE (Normal) BILIRUBIN NEGATIVE (Normal) COLOR URINE YELLOW (Normal) 82-Vct-042803:04 [[facility]H] CMP W/EGFR GLUCOSE 114 mg/dl (Normal) Range: 65-139 Comments: Non-fasting reference interval UREA NITROGEN (BUN) 13 mg/dl (Normal) Range: 7-25 CREATININE 1.07 mg/dl (Above high threshold) Range: 0.50-0.99 Comments: For patients >49 years of age, the reference limitfor Creatinine is approximately 13% higher for peopleidentified as -Malagasy. eGFR NON- 54 {ML/MIN/1.7} (Below low threshold) Range: > OR=60 eGFR 62 {ML/MIN/1.7} (Normal) Range: > OR=60 BUN/CREATININE RATIO 12 {CALC} (Normal) Range: 6-22 SODIUM 139 mmol/L (Normal) Range: 135-146 POTASSIUM 4.1 mmol/L (Normal) Range: 3.5-5.3 CHLORIDE 101 mmol/L (Normal) Range: 98-110 CARBON DIOXIDE 24 mmol/L (Normal) Range: 20-32 CALCIUM 9.7 mg/dl (Normal) Range: 8.6-10.4 PROTEIN, TOTAL 8.0 g/dl (Normal) Range: 6.1-8.1 ALBUMIN 4.4 g/dl (Normal) Range: 3.6-5.1 GLOBULIN 3.6 {G/DL__CALC} (Normal) Range: 1.9-3.7 ALBUMIN/GLOBULIN RATIO 1.2 {CALC} (Normal) Range: 1.0-2.5 BILIRUBIN, TOTAL 0.3 mg/dl (Normal) Range: 0.2-1.2 ALKALINE PHSPHATASE 73 u/l (Normal) Range: 33-130 AST 19 u/l (Normal) Range: 10-35 ALT 14 u/l (Normal) Range: 6-29 76-Nny-865007:04 [[facility]] CREATINE KINASE, TOTAL CREATINE KINASE, TOTAL 52 u/l (Normal) Range: 29-143 55-Mvc-569992:04 [[facility]] CBC (INCLUDES DIFF/PLT) Comments: REPORT COMMENT:FASTING:NO WHITE BLOOD CELL COUNT 10.1 {Thousand/u} (Normal) Range: 3.8-10.8 RED BLOOD CELL COUNT 4.34 {Million/uL} (Normal) Range: 3.80-5.10 HEMAGLOBIN 12.0 g/dl (Normal) Range: 11.7-15.5 HEMATOCRIT 36.9 % (Normal) Range: 35.0-45.0 MCV 85.0 fL (Normal) Range: 80.0-100.0 MCH 27.6 pg (Normal) Range: 27.0-33.0 MCHC 32.5 g/dl (Normal) Range: 32.0-36.0 RDW 13.9 % (Normal) Range: 11.0-15.0 PLATELET COUNT 297 {Thousand/u} (Normal) Range: 140-400 MPV 9.2 fL (Normal) Range: 7.5-12.5 ABSOLUTE NEUTROPHILS 6777 {cells/uL} (Normal) Range: 7362-8349 ABSOLUTE LYMPHOCYTES 2000 {cells/uL} (Normal) Range: 850-3900 ABSOLUTE MONOCYTES 960 {cells/uL} (Above high threshold) Range: 200-950 ABSOLUTE EOSINOPHILS 273 {cells/uL} (Normal) Range: 15-500 ABSOLUTE BASOPHILS 91 {cells/uL} (Normal) Range: 0-200 NEUTROPHILS 67.1 % (Normal) LYMPHOCYTES 19.8 % (Normal) MONOCYTES 9.5 % (Normal) EOSINOPHILS 2.7 % (Normal) BASOPHILS 0.9 % (Normal) 73-Xiu-121314:40 [[facility]] CULTURE, URINE, ROUTINE CULTURE Comments: CULTURE, URINE, ROUTINE MICRO NUMBER: [id number] TEST STATUS: FINAL SPECIMEN SOURCE: URINE SPECIMEN QUALITY: ADEQUATE RESULT: Multiple organisms present, each less than 10,000 CFU/mL. These organisms, commonly found on external and internal genitalia, are considered to be colonizers. No further testing performed. Plan of Care Name Dates Details Planned Observations Planned Goals not documented Planned Encounters Appointment; REJI BARRY M.D. On: 24-Aug-2018 9:15 Appointment; ETHAN HAQUE NP On: 26-Aug-2018 12:00 Appointment; INESSA CADET M.D. On: 03-Sep-2018 9:45 Appointment; ROBERT MALIN M.D. On: 16-Sep-2018 13:00 Appointment; REJI BARRY M.D. On: 23-Oct-2018 10:00 Appointment; REJI BARRY M.D. On: 21-Jan-2019 9:30 Interventions Provided Plan* Medication Changes: There are no changes to your medication. Please continue to take all your medicines as prescribed. * Intervention Therapy: Schedule for L L3-4, L4-5, L5-S1 MBB. * Physical Therapy: Encouraged patient to continue HEP. * Psychologic Therapy: Deferred * Patient Education: Performed. Discussion/Summary* Impression: Ms. CORDELIA DOWLING is 67 year year old female patient who presents with left lower back pain. * Clinical examination remarkable for antalgic gait. TTP at paraspinous muscles, left greater than right. TTP SI joint, left greater than right. + facet loading test, left greater than right. Decreased vibration sensation bilaterally. Right side stronger than left, due to MS. Patient failed conservative management in form of physical therapy and medication. * Differential diagnosis, most probably patient suffering from lumbar facet arthritis, lumbar facet arthrosis, myofascial pain, and less likely lumbar radicular pain. * Plan: Schedule patient for left L3-4, L4-5 and L5-S1 medial branches blocks first trial. If the patient received 50% or greater reduction of pain, which led to improvement in her daily activity and sleep cycle, dropping her VAS score more than two-point and patient reports decreased intake of her pain medication, we will repeat the procedures in 2-4 weeks time. Upon successful of the second trial, we will proceed to the definitive treatment of radiofrequency ablation. * Modifying factors: decrease caloric intake, no meals 2 hours before bedtime, sleep hygiene. * Time spent in counseling and/or coordination of care for this patient. Counseled: patient. Instructions Name Dates Details Instructions not documented Encounters Appointment; ALYSON WALKER PA Encounter Diagnosis: Problem not documented On: 26-Aug-2016 11:45 Appointment; DAPHNIE KILGORE P.A. Encounter Diagnosis: Problem not documented On: 24-Oct-2017 12:30 Appointment; [facility] [place] Encounter Diagnosis: Problem not documented On: 04-Nov-2017 [...] Diagnosis: Problem not documented On: 15-Jul-2018 13:00 Appointment; REJI BARRY M.D. Encounter Diagnosis: Problem not documented On: 23-Jul-2018 10:30 Appointment; DAPHNIE KILGORE P.A. Encounter Diagnosis: Problem not documented On: 28-Jul-2018 14:15 Appointment; ROBERT MALIN M.D. Encounter Diagnosis: Problem not documented On: 17-Aug-2018 14:30
[2018-08-20 18:09] LABS: BASOPHILS # (AUTO) 0.1 (0.0-0.1); BASOPHILS % 0.9 % (0.0-1.0); EOSINOPHILS # (AUTO) 0.3 (0.0-0.4); EOSINOPHILS % 4.1 % (0.0-6.0); HEMATOCRIT 36.7 % (34.2-44.1); HEMOGLOBIN 11.6 g/dL (12.0-16.0); LYMPHOCYTES # (AUTO) 1.8 (1.0-3.2); LYMPHOCYTES % 24.6 % (18.0-39.1); MEAN CORPUSCULAR HEMOGLOBIN 28.6 pg (28-32); MEAN CORPUSCULAR HGB CONC 31.6 g/dL (31-35); MEAN CORPUSCULAR VOLUME 90.6 fL (81-99); MONOCYTES # (AUTO) 0.7 (0.2-0.8); NEUTROPHILS # (AUTO) 4.4 (2.1-6.9); PLATELET COUNT 250 x10e3/uL (140-360); RED BLOOD COUNT 4.05 x10e6/uL (3.6-5.1); RED CELL DISTRIBUTION WIDTH 16.6 % (11.7-14.4)
--- NOTE | 2018-08-20 18:19 | Diagnostic Imaging Report ---
Examination: CT head without contrast Clinical Indication: Tremors. Slurred speech. Technique: Transaxial noncontrast images from the skull base through the vertex were obtained. Sagittal and coronal reformatted images were done. Dose modulation, iterative reconstruction, and/or weight based adjustment of the mA/kV was utilized to reduce the radiation dose to as low as reasonably achievable. Comparison: Head CT performed November 22, 2012. Findings: Scalp: No abnormalities. Bones: Intact. No fractures. No blastic or lytic lesions. Brain sulci: Appropriate for patient's age. Ventricles: Normal in size and configuration. No hydrocephalus. . Extra-axial space: No abnormalities. Parenchyma: There are new mild confluent areas of low-attenuation within subcortical and periventricular white matter, nonspecific, but could represent microvascular ischemic disease. No masses, hemorrhage, or acute or chronic cortical based vascular insults. Suprasellar region: No abnormalities. Craniocervical junction: The foramen magnum is patent. No Chiari one malformation. Incidental findings: Atherosclerotic calcification of the cavernous and supraclinoid internal carotid and intradural vertebral arteries. Impression: 1. No acute intracranial finding. 2. New mild chronic microvascular ischemic change when compared to prior head CT performed November 22, 2012. Signed by: Dr. Mckenzie Kevin M.D. on 08/20/2018 6:15 PM
[2018-08-20 18:28] LABS: ALBUMIN 4.3 g/dL (3.5-5.0); ALBUMIN/GLOBULIN RATIO 1.2 (0.8-2.0); CALCIUM 9.4 mg/dL (8.4-10.2); CREATININE, SERUM 1.35 mg/dL (0.57-1.11)
[2018-08-20 22:11] LABS: CLARITY,URINE CLOUDY (CLEAR); COLOR,URINE YELLOW (YELLOW)
[2018-08-20 22:12] LABS: BILIRUBIN,URINE NEGATIVE (NEGATIVE); KETONES,URINE NEGATIVE (NEGATIVE); LEUKOCYTE ESTERASE ,URINE 2+ (NEGATIVE); NITRITE,URINE POSITIVE (NEGATIVE); PROTEIN,URINE DIPSTICK NEGATIVE (NEGATIVE); URINE UROBILINOGEN 0.2 mg/dL (0.2 - 1)
[2018-08-20 22:24] LABS: BACTERIA,URINE MANY /HPF; EPITHELIAL CELLS,URINE RARE /LPF; RBC,URINE 0-5 /HPF (0-5); WBC,URINE (MAN) >50 /HPF (0-5)
[2018-08-20] MEDS ORDERED: ALBUTEROL/IPRATROPIUM 3 ML NEB NEB ONE (22:30)
[2018-08-20] MEDS ORDERED: METHYLPREDNISOLONE SOD SUCC 125 MG/2ML VIAL IV ONE (22:30)
--- NOTE | 2018-08-20 22:33 | Diagnostic Imaging Report ---
EXAM: CHEST SINGLE (PORTABLE), AP 1 view INDICATION: Stroke like symptoms COMPARISON: AP view of the chest July 14, 2018 FINDINGS: LINES/TUBES: None LUNGS: No consolidations or edema. PLEURA: No effusions or pneumothorax. HEART AND MEDIASTINUM: Normal size and contour. BONES AND SOFT TISSUES: No acute findings. Lower cervical spine surgical hardware. IMPRESSION: No acute thoracic abnormality. Signed by: Dr. Krys Dukes M.D. on 08/20/2018 10:30 PM
--- OUTSIDE RECORDS SUMMARY | 2018-08-20 22:48 | XMS REPORT | Continuity of Care Document ---
Author Author [facility] Interface Address Unknown Phone Unavailable Problems Problem Status Onset Date Classification Date Reported Comments Source Accidental fall 03/30/2018 04/11/2018 [place] FALL Active 03/30/2018 [facility] ACCIDENTAL FALL/BRAIN TIA Active 03/30/2018 [facility] Pelvic and perineal pain 12/23[facility]2017 [facility] [place] M79.89 - OTHER SPECIFIED SOFT TISSUE DI Active 10/24/2017 [facility] Discharge Diagnosis: Cervicalgia 08/04/2017 08/07/2017 [facility] NECK AND BACK PAIN Active 08/04/2017 [facility] R25.2 - CRAMP AND SPASM Active 12/12/2016 JENARO Choudhary ACUTE PANCREATITIS, POSSIBLE CDIFF Active 07/11/2016 [facility] ABDOMINAL PAIN Active 07/11/2016 [facility] XFER Active 03/28/2016 [facility] FEMUR FX Active 03/27/2016 [facility] RT KNEE INJURY Active 03/27/2016 [facility] KNEE PAIN/ INJURY Active 03/27/2016 [facility] RECURRENT SINUSITIS Active 10/30/2015 [facility] 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 [facility]<sup>2, 3</sup> Active 08/01/2015 Problem 03/24/2018 Problem added by Discern Expert. [facility] [place] [place] J32.9/J32.0/J32.1/J32.2/J32.3/J34.2 Active 07/25/2015 [facility] UNK Active 07/25/2015 [facility] HEP C Active 07/22/2014 [facility] Unspecified ulcerative colitis Active Problem 02/01/2016 [facility] Other kyphoscoliosis and scoliosis Active Problem 02/01/2016 Bry Buttser Spondyloarthropathy Active Problem 02/01/2016 Bry Dumont Osteoporosis, postmenopausal Active Problem 02/01/2016 [facility] Dumont Scoliosis , idiopathic Active Problem 02/01/2016 [facility] Dumont Pain, back Active Problem 02/01/2016 Bry Dumont Spondyloarthropathy Active Problem 02/01/2016 [facility]ont Osteoporosis Active Problem 02/01/2016 [facility] Dumont Vitamin D deficiency Active Diagnosis 12/13/2015 [facility] Arthritis Active Problem 04/11/2018 [facility], [facility] [place],[facility] [place] GERD (<span ID="[id number]">Confirmed</span>) Active Problem 04/11/2018 [facility], [facility] [place],[facility], [facility] [place] Hepatitis C Resolved Problem 04/11/2018 [facility], [facility] [place],[facility], [facility] [place] Hernia of abdominal wall Resolved Problem 04/11/2018 [facility], [facility] [place],[facility], [facility] [place] Hypertension Active Problem 04/11/2018 [facility], [facility] [place],[facility], [facility] [place] Kidney stone Resolved Problem 04/11/2018 [facility], [facility] [place],[facility], [facility] [place] Multiple sclerosis Active Problem 04/11/2018 [facility], [facility] [place],[facility], [facility] [place] Polyp colon Resolved Problem 04/11/2018 [facility], [facility] [place],[facility] [place] Anxiety depression Active Problem 04/11/2018 JENARO Choudhary,[facility] Incomplete bladder emptying Active Problem 04/11/2018 JENARO Choudhary,[facility] MRSA<sup>1</sup> Active Problem 04/11/2018 nasal JENARO Choudhary,[facility] Smokers' cough Active Problem 04/11/2018 [facility] SOB on exertion(<span ID="[id number]">Confirmed</span>) Active Problem 04/11/2018 JENARO Choudhary,[facility] Colitis Resolved Problem 04/11/2018 JENARO Choudhary,[facility] COPD Resolved Problem 04/11/2018 JENARO Choudhary,[facility] OM (<span ID="[id number]">Confirmed</span>) Resolved Problem 04/11/2018 JENARO Choudhary,[facility] Anxiety depression Active Problem 03/24/2018 [facility] [place],[facility] [place] Colitis Resolved Problem 03/24/2018 [facility] [place],[facility], [facility] [place] COPD Resolved Problem 03/24/2018 [facility] [place] [place] Incomplete bladder emptying Active Problem 03/24/2018 [facility] [place],[facility], [facility] [place] MRSA<sup>1</sup> Active Problem 03/24/2018 nasal [facility] [place] [place] OM (<span ID="[id number]">Confirmed</span>) Resolved Problem 03/24/2018 JENARO Choudhary,[facility] [place] Smokers' cough Active Problem 03/24/2018 [facility] [place] SOB on exertion(<span ID="[id number]">Confirmed</span>) Active Problem 03/24/2018 JENARO Choudhary,[facility] ACUTE RECURRENT SINUSITIS, UNSPECIFIED Active [facility] FRACTURE OF UNSPECIFIED PART OF BODY OF Active [facility] ACUTE PANCREATITIS WITHOUT NECROSIS OR I Active [facility] UNSPECIFIED FALL, INITIAL ENCOUNTER Active [facility] TRANSIENT CEREBRAL ISCHEMIC ATTACK, UNSP Active [facility] Medications Medication Details Route Status Patient Instructions Ordering Provider Order Date Source Amlodipine 5 mg, 1 tab, Route: PO, Drug form: TAB, BID, Dosing Weight 72.727, kg, Start date: 04/08/18 17:00:00 CDT, Duration: 30 day, Stop date: 05/08/18 9:00:00 CDTNotes: (Same as: Sunny) Inactive 04/08/2018 [facility] Benadryl 25 mg, 1 tab, Route: PO, Drug form: TAB, Q6H, Dosing Weight 72.727, kg, PRN as needed for itching, Start date: 04/07/18 20:43:00 CDT, Duration: 30 day, Stop date: 05/07/18 20:42:00 CDT No Longer Active 04/08/2018 [facility] atorvastatin 40 mg oral tablet 40 mg=1 tab, PO, Bedtime, # 30 tab, 0 Refill(s), Pharmacy: [facility] Active 04/07/2018 [facility] Aspirin 81 MG Enteric Coated Tablet 81 mg=1 tab, PO, Q24H, # 30 tab, 0 Refill(s), Pharmacy: [facility] Active 04/07/2018 [facility] amLODIPine 5 mg oral tablet 5 mg=1 tab, PO, Daily, # 30 tab, 0 Refill(s), Pharmacy: [facility] Active 04/07/2018 [facility] Amoxicillin 500 MG / Clavulanate 125 MG Oral Tablet [Augmentin 500-mg] 1 tab, PO, Q12H, X 5 day, # 10 tab, 0 Refill(s), Pharmacy: [facility] Active 04/07/2018 [facility] sertraline 50 mg oral tablet 25 mg=0.5 tab, PO, Bedtime, # 15 tab, 0 Refill(s), Pharmacy: [facility] Active 04/07/2018 [facility] Famotidine 20 MG Oral Tablet 20 mg=1 tab, PO, Q24H, # 30 tab, 0 Refill(s), Pharmacy: [facility] Active 04/07/2018 [facility] Zoloft 25 mg, 0.5 tab, Route: PO, Drug form: TAB, Bedtime, Dosing Weight 72.727, kg, Start date: 04/05/18 21:00:00 CDT, Duration: 30 day, Stop date: 05/04/18 21:00:00 CDTNotes: (Same as: Zoloft) No Longer Active 04/06/2018 [facility] Zosyn 3.375 gm, Route: IVPB, [id number], Dosing Weight 72.727, kg, CrCl >=20 ml/min infuse over 4 hours, Start date: 04/04/18 9:00:00 CDT, Duration: 10 day, Stop date: 04/14/18 1:00:00 CDT, ABX Indication: Urinary Tract InfectionNotes: (Same as: Zosyn) Dosing based on Piperacillin component MEDICATION WASTE Product Size: 3375 mg Product Wasted: ___ mg No Longer Active 04/04/2018 [facility] Tylenol 650 mg, 1 supp, Route: PA, Drug form: SUPP, Q6H, Dosing Weight 72.727, kg, PRN Pain 1-3/Temp > 100.4 F, Start date: 04/03/18 19:21:00 CDT, Duration: 30 day, Stop date: 05/03/18 19:20:00 CDTNotes: Max tzshoxuhqqnjl=6697 mg/day (4 gm/day). (Same as: Tylenol) No Longer Active 04/04/2018 [facility] Dextrose 5% with 0.45% NaCl IV 1,000 mL 1,000 mL, Rate: 50 ml/hr, Infuse over: 20 hr, Route: IV, Dosing Weight 72.727 kg, Total Volume: 1,000, Start date: 04/03/18 17:37:00 CDT, Duration: 30 day, Stop date: 05/03/18 17:36:00 CDT, 1.87, m2 No Longer Active 04/03/2018 [facility] Cefuroxime 250 MG Oral Tablet 250 mg, 1 tab, Route: PO, Drug form: TAB, [id number], Dosing Weight 72.727, kg, Start date: 04/02/18 18:00:00 CDT, Duration: 8 doses or times, Stop date: 04/06/18 6:00:00 CDTNotes: (Do Not Crush) With food. (Same As: Ceftin) Inactive 04/02/2018 [facility] Rocephin 1 gm, Route: IVP, [id number], Dosing Weight 72.727, kg, Start date: 04/02/18 18:00:00 CDT, Duration: 10 day, Stop date: 04/11/18 18:00:00 CDT, ABX Indication: Urinary Tract InfectionNotes: (Same As: Rocephin). Use with 100 mL NS and infuse over 30 min MEDICATION WASTE Product Size: 1000 mg Product Wasted: ___ mg No Longer Active 04/02/2018 [facility] Hydralazine 10 mg, 0.5 mL, Route: IV, Drug form: INJ, Q6H, Dosing Weight 72.727, kg, PRN Hypertension, Start date: 04/02/18 15:01:00 CDT, Duration: 30 day, Stop date: 05/02/18 15:00:00 CDTNotes: (Same as: Apresoline) Push over 5 minutes No Longer Active 04/02/2018 [facility] Amlodipine 5 mg, 1 tab, Route: PO, Drug form: TAB, Daily, Dosing Weight 72.727, kg, Start date: 04/02/18 11:35:00 CDT, Duration: 30 day, Stop date: 05/02/18 9:00:00 CDTNotes: (Same as: Norvasc) No Longer Active 04/02/2018 [facility] Labetalol 10 mg, 2 mL, Route: IV, Drug form: INJ, ONCE, Dosing Weight 72.727, kg, Start date: 04/02/18 0:55:00 CDT, Stop date: 04/02/18 0:55:00 CDTNotes: (Same as: Normodyne, Trandate) Push over 2 minutes Give bolus over 2-3 minutes. Inactive 04/02/2018 [facility] Nitroglycerin 0.02 MG/MG Topical Ointment 1 inch, Route: TOP, Drug Form: OINT, Dosing Weight 72.727, kg, ONCE, Start date: 04/02/18 0:54:00 CDT, Stop date: 04/02/18 0:54:00 CDTNotes: 1 gram is approximately 1 inch of nitroglycerin ointment (20 mg NTG per gram) (Same as:Nitro-Bid) Inactive 04/02/2018 [facility] Hydralazine 10 mg, 0.5 mL, Route: IVP, Drug form: INJ, Q6H, Dosing Weight 72.727, kg, PRN Hypertension, Start date: 04/01/18 19:32:00 CDT, Duration: 1 doses or times, Stop date: Limited # of timesNotes: (Same as: Apresoline) Push over 5 minutes Inactive 04/02/2018 [facility] ziprasidone 5 mg, Route: IM, Drug form: PDR/INJ, ONCE, Dosing Weight 72.727, kg, PRN Agitation, Priority: NOW, Start date: 04/01/18 10:13:00 CDTNotes: Reconstitute with 1.2 ml of sterile water. Final concentrat ion=20 mg/1ml. Maximum 40 mg/24 hours (Same As: Juan). MEDICATION WASTE Product Size: 20 mg Product Wasted: ___ mg No Longer Active 04/01/2018 [facility] buPROPion 150 mg/24 hours (XL) oral tablet, extended release 150 mg=1 tab, PO, QAM, 0 Refill(s) No Longer Active 03/31/2018 [facility] amitriptyline 50 mg oral tablet 100 mg=2 tab, PO, Bedtime, 0 Refill(s) No Longer Active 03/31/2018 [facility] biotin 1000 mcg oral tablet 1,000 microgram=1 tab, PO, Daily No Longer Active 03/31/2018 [facility] tamsulosin 0.4 mg oral capsule 0.4 mg=1 cap, PO, Daily No Longer Active 03/31/2018 [facility] rOPINIRole 0.5 mg oral tablet 1 mg=2 tab, PO, TID, 0 Refill(s) No Longer Active 03/31/2018 [facility] ferrous sulfate 325 mg oral enteric coated tablet 325 mg=1 tab, PO, BID, 0 Refill(s) No Longer Active 03/31/2018 [facility] Alendronic acid 70 MG Oral Tablet 70 mg=1 tab, PO, qWeek No Longer Active 03/31/2018 [facility] lisinopril 10 mg oral tablet 10 mg=1 tab, PO, Daily No Longer Active 03/31/2018 [facility] Diclofenac Sodium 0.01 MG/MG Topical Gel 4 gm=1 appl, TOP, QID, PRN for pain No Longer Active 03/31/2018 [facility] Kayexalate 30 gm, 120 mL, Route: PO, Drug form: SUSP, ONCE, Dosing Weight 72.727, kg, Start date: 03/31/18 11:41:00 CDT, Stop date: 03/31/18 11:41:00 CDTNotes: (sodium polystyrene sulfonate 15 gm/60 ml TONY) Sh daysi well before use. (Same as: Kayexalate, SPS) Inactive 03/31/2018 [facility] Aspirin 81 MG Enteric Coated Tablet 81 mg, 1 tab, Route: PO, Drug form: ECTAB, Q24H, Dosing Weight 72.727, kg, Start date: 03/31/18 9:00:00 CDT, Duration: 30 day, Stop date: 04/29/18 9:00:00 CDTNotes: Do not crush or chew. (Same As: Ecotrin) No Longer Active 03/31/2018 [facility] Saline Flush 0.9% 10 ml, Route: IVP, Drug Form: INJ, Dosing Weight 72.727, kg, Q12H, Start date: 03/30/18 21:00:00 CDT, Duration: 30 day, Stop date: 04/29/18 9:00:00 CDTNotes: (Same as: BD Posiflush) No Longer Active 03/31/2018 [facility] atorvastatin 40 mg, 1 tab, Route: PO, Drug form: TAB, Bedtime, Dosing Weight 72.727, kg, Start date: 03/30/18 21:00:00 CDT, Duration: 30 day, Stop date: 04/28/18 21:00:00 CDTNotes: (Same as: Lipitor) No Longer Active 03/31/2018 [facility] Ceftriaxone 1 gm, Route: IV, [id number], Dosing Weight 72.727, kg, Start date: 03/30/18 19:00:00 CDT, Duration: 7 day, Stop date: 04/05/18 19:00:00 CDT, ABX Indication: Urinary Tract InfectionNotes: (Same As: Rocephin). Use with 100 mL NS and infuse over 30 min MEDICATION WASTE Product Size: 1000 mg Product Wasted: ___ mg No Longer Active 03/31/2018 [facility] Kayexalate 30 gm, 120 mL, Route: PO, Drug form: SUSP, ONCE, Dosing Weight 72.727, kg, Start date: 03/30/18 18:35:00 CDT, Stop date: 03/30/18 18:35:00 CDTNotes: (sodium polystyrene sulfonate 15 gm/60 ml TONY) Sh daysi well before use. (Same as: Kayexalate, SPS) Inactive 03/30/2018 [facility] Famotidine 20 mg, 1 tab, Route: PO, Drug form: TAB, Q24H, Dosing Weight 72.727, kg, Start date: 03/30/18 16:00:00 CDT, Duration: 30 day, Stop date: 04/28/18 16:00:00 CDTNotes: (Same as: Pepcid) No Longer Active 03/30/2018 [facility] Sodium Chloride 0.9% IV 1,000 mL 1,000 mL, Rate: 75 ml/hr, Infuse over: 13.3 hr, Route: IV, Dosing Weight 72.727 kg, Total Volume: 1,000, Start date: 03/30/18 15:39:00 CDT, Duration: 30 day, Stop date: 04/29/18 15:38:00 CDT, 1.87, m2 No Longer Active 03/30/2018 [facility] Saline Flush 0.9% 10 ml, Route: IVP, Drug Form: INJ, Dosing Weight 72.727, kg, PRN, PRN Line Flush, Start date: 03/30/18 15:39:00 CDT, Duration: 30 day, Stop date: 04/29/18 15:38:00 CDTNotes: (Same as: BD Posiflush) No Longer Active 03/30/2018 [facility] Acetaminophen 650 mg, 2 tab, Route: PO, Drug form: TAB, Q4H, Dosing Weight 72.727, kg, PRN Pain 1-3/Temp > 100.4 F, Start date: 03/30/18 15:39:00 CDT, Duration: 30 day, Stop date: 04/29/18 15:38:00 CDTNotes: Do not exceed 4 gm/day. (Same as: Tylenol) No Longer Active 03/30/2018 [facility] Aspirin 324 mg, Route: CHEW, Drug form: CHEWTAB, ONCE, Dosing Weight 72.727, kg, Priority: STAT, Start date: 03/30/18 13:58:00 CDT, Stop date: 03/30/18 13:58:00 CDT Inactive 03/30/2018 [facility] Saline Flush 0.9% 10 mL, Route: IVP, Drug Form: INJ, Dosing Weight 72.727, kg, PRN, PRN Line Flush, Start date: 03/30/18 13:57:00 CDT, Duration: 30 day, Stop date: 04/29/18 13:56:00 CDTNotes: (Same as: BD Posiflush) No Longer Active 03/30/2018 [facility] nitrofurantoin macrocrystals-monohydrate 100 mg oral capsule (Macrobid) 100 mg=1 cap, PO, BID, X 10 day, # 20 cap, 0 Refill(s) No Longer Active 02/24/2018 [facility] Tylenol with Codeine #3 oral tablet 1 tab, PO, Q6H, PRN Pain, X 3 day, # 13 tab, 0 Refill(s) Active 08/04/2017 [facility] Zofran 4 mg, 2 mL, Route: IVP, Drug form: INJ, ONCE, Dosing Weight 68.182, kg, Priority: STAT, Start date: 08/04/17 6:24:00 CDT, Stop date: 08/04/17 6:24:00 CDTNotes: (Same as: Zofran) MEDICATION WASTE Product Size: 4 mg Product Wasted: ___ mg Inactive 08/04/2017 [facility] morphine Sulfate 4 mg, 1 mL, Route: IVP, Drug form: SOLN, ONCE, Dosing Weight 68.182, kg, Priority: STAT, Start date: 08/04/17 6:24:00 CDT, Stop date: 08/04/17 6:24:00 CDTNotes: (Same as:MORPhine Sulfate) Inactive 08/04/2017 [facility] NS (Bolus) IV 500 mL, 500 ml/hr, Infuse Over: 1 hr, Route: IV, 500, Drug form: INJ, ONCE, Priority: STAT, Dosing Weight 68.182 kg, Start date: 08/04/17 6:24:00 CDT, Duration: 1 doses or times, Stop date: 08/04/17 6:24:00 CDT Inactive 08/04/2017 [facility] loperamide 2 mg oral tablet 2 mg=1 tab, PO, Q4H, PRN Loose Stools, X 5 day, # 30 tab, 0 Refill(s) Active 07/16/2016 [facility] Metronidazole 250 MG Oral Tablet [Flagyl] 250 mg=1 tab, PO, TID, X 14 day, # 42 tab, 0 Refill(s) Active 07/16/2016 [facility] Alprazolam 0.5 MG Oral Tablet [Xanax] 0.5 mg, Route: PO, Drug form: TAB, BID, Dosing Weight 70, kg, Start date: 07/15/16 9:00:00 CDT, Duration: 30 day, Stop date: 08/13/16 17:00:00 [employer] No Longer Active 07/15/2016 [facility] Nicotine 21 mg, 1 patch, Route: TOP, Drug form: ERFILM, Q24H, Dosing Weight 70, kg, Priority: NOW, Start date: 07/14/16 12:37:00 CDT, Duration: 30 day, Stop date: 08/12/16 13:00:00 CSTNotes: (Same as: Habitrol) "Remove old patch before application of new patch" WASTE: F/P - P Waste Black; E - P Waste Black Inactive 07/14/2016 [facility] Alprazolam 1 MG Oral Tablet [Xanax] 1 mg, 1 tab, Route: PO, Drug form: TAB, ONCE, Dosing Weight 70, kg, Start date: 07/14/16 12:36:00 CDT, Stop date: 07/14/16 12:36:00 CDTNotes: With food or milk (Same as: Xanax) Inactive 07/14/2016 [facility] Loperamide 1 mg, 5 mL, Route: PO, Drug form: LIQ, Q4H, Dosing Weight 70, kg, PRN Diarrhea, Start date: 07/13/16 18:04:00 CDT, Duration: 30 day, Stop date: 08/12/16 18:03:00 CSTNotes: (Same as: Imodium) No Longer Active 07/13/2016 [facility] Pepto-bismol 524 mg, 30 ml, Route: PO, Drug Form: SUSP, Dosing Weight 70, kg, QID, PRN Diarrhea, Start date: 07/13/16 17:31:00 CDT, Duration: 30 day, Stop date: 08/12/16 17:30:00 CSTNotes: (Same As: Pepto Bismol and Kaopectate) No Longer Active 07/13/2016 [facility] meropenem 500 mg, Route: IVPB, ABXQ6H, Dosing Weight 70, kg, CrCL=26 -49 ml/min, Extended infusion, infuse over 3 hours, Start date: 07/12/16 20:00:00 CDT, Duration: 30 day, Stop date: 08/11/16 15:00:00 CSTNotes: Same as Merrem MEDICATION WASTE Product Size: 500 mg Product Wasted: ___ mg No Longer Active 07/13/2016 [facility] sodium chloride 0.9% 1000 ml INJ 1,000 mL 1,000 mL, Rate: 2,000 ml/hr, Infuse over: 0.5 hr, Route: IV, Dosing Weight 70 kg, Total Volume: 1,000, Start date: 07/12/16 14:24:00 CDT, Duration: 1 doses or times, Stop date: 07/12/16 14:53:00 CDT Inactive 07/12/2016 [facility] Sodium Chloride 0.154 MEQ/ML Injectable Solution 1,000 mL, Rate: 200 ml/hr, Infuse over: 5 hr, Route: IV, Dosing Weight 70 kg, Total Volume: 1,000, Start date: 07/12/16 14:23:00 CDT, Duration: 30 day, Stop date: 08/11/16 14:22:00 [employer] No Longer Active 07/12/2016 [facility] potassium chloride 10 mEq, 100 mL, Route: IVPB, Drug form: INJ, Q1H, Dosing Weight 70, kg, Total dose=40 mEq, Start date: 07/12/16 10:00:00 CDT, Duration: 4 doses or times, Stop date: 07/12/16 13:00:00 CDT, Central LineNotes: Infuse at a rate of 10 mEq/hr. (Same as: KCL) Inactive 07/12/2016 [facility] Clonidine Hydrochloride 0.1 MG Oral Tablet 0.1 mg, 1 tab, Route: PO, Drug form: TAB, BID, Dosing Weight 70, kg, Start date: 07/12/16 9:00:00 CDT, Duration: 30 day, Stop date: 08/10/16 21:00:00 CDTNotes: (Same As: Catapres) No Longer Active 07/12/2016 [facility] Baclofen 10 mg, 1 tab, Route: PO, Drug form: TAB, TID, Dosing Weight 70, kg, Start date: 07/12/16 9:00:00 CDT, Duration: 30 day, Stop date: 08/10/16 17:00:00 CDTNotes: (Same As: Lioresal) No Longer Active 07/12/2016 [facility] Amlodipine 5 mg, 1 tab, Route: PO, Drug form: TAB, Daily, Dosing Weight 70, kg, Start date: 07/12/16 9:00:00 CDT, Duration: 30 day, Stop date: 08/10/16 9:00:00 CDTNotes: (Same as: Norvasc) No Longer Active 07/12/2016 [facility] influenza virus vaccine, inactivated 0.5 mL, Route: IM, Drug Form: SUSP, Daily, Start date: 07/12/16 9:00:00 CDT, Duration: 1 doses or times, Stop date: 07/12/16 9:00:00 CDTNotes: (Same as: Fluzone Quadrivalent, Fluarix Quadrivalent) For 3 years of age and older (0.5 mL IM) Shake well before use No Longer Active 07/12/2016 [facility] Streptococcus pneumoniae serotype 1 capsular antigen diphtheria [id number] protein conjugate vaccine / Streptococcus pneumoniae serotype 14 capsular antigen diphtheria [id number] protein conjugate vaccine / Streptococcus pneumoniae serotype 18C capsular antigen d 0.5 mL, Route: IM, Drug Form: INJ, Daily, Start date: 07/12/16 9:00:00 CDT, Duration: 1 doses or times, Stop date: 07/12/16 9:00:00 CDTNotes: Lightly roll vial (DO NOT SHAKE) before administration. (Same as: Prevnar 13) Inactive 07/12/2016 [facility] Protonix 40 mg, 1 tab, Route: PO, Drug form: ECTAB, BID, Dosing Weight 70, kg, Start date: 07/12/16 9:00:00 CDT, Duration: 30 day, Stop date: 08/10/16 17:00:00 CDTNotes: Tablet should not be chewed or crushed. (Same as: Protonix) No Longer Active 07/12/2016 [facility] gabapentin 300 MG Oral Capsule 300 mg, 1 cap, Route: PO, Drug form: CAP, TID, Dosing Weight 70, kg, Start date: 07/12/16 9:00:00 CDT, Duration: 30 day, Stop date: 08/10/16 17:00:00 CDTNotes: (Same as: Neurontin) No Longer Active 07/12/2016 [facility] Fluoxetine 60 mg, 6 cap, Route: PO, Drug form: CAP, Daily, Dosing Weight 70, kg, Start date: 07/12/16 9:00:00 CDT, Duration: 30 day, Stop date: 08/10/16 9:00:00 CDTNotes: (Same as: Prozac) No Longer Active 07/12/2016 [facility] Dicyclomine 20 mg, 1 tab, Route: PO, Drug form: TAB, QID, Dosing Weight 70, kg, Start date: 07/12/16 9:00:00 CDT, Duration: 30 day, Stop date: 08/10/16 21:00:00 CDTNotes: (Same as: Bentyl) No Longer Active 07/12/2016 [facility] Propranolol 40 mg, 1 tab, Route: PO, Drug form: TAB, TID, Dosing Weight 70, kg, Start date: 07/12/16 0:00:00 CDT, Duration: 30 day, Stop date: 08/10/16 16:00:00 CDTNotes: Give with food. (Same as: Inderal) No Longer Active 07/12/2016 [facility] Doxepin 10 mg, 1 cap, Route: PO, Drug form: CAP, Bedtime, Dosing Weight 70, kg, PRN Anxiety, Start date: 07/11/16 21:23:00 CDT, Duration: 30 day, Stop date: 08/10/16 21:22:00 CDTNotes: (Same as: SINEquan) No Longer Active 07/12/2016 [facility] Risperidone 0.5 mg, 1 tab, Route: PO, Drug form: TAB, BID, Dosing Weight 70, kg, PRN Agitation, Start date: 07/11/16 21:17:00 CDT, Duration: 30 day, Stop date: 08/10/16 21:16:00 CDTNotes: (Same as: Risperdal) No Longer Active 07/12/2016 [facility] Alprazolam 0.5 MG Oral Tablet 0.5 mg, 1 tab, Route: PO, Drug form: TAB, BID, Dosing Weight 70, kg, PRN Anxiety, Start date: 07/11/16 21:16:00 CDT, Duration: 30 day, Stop date: 08/10/16 21:15:00 CDTNotes: With food or milk (Same as: Xanax) No Longer Active 07/12/2016 [facility] Morphine 4 mg, 2 mL, Route: IVP, Drug form: INJ, Q4H, Dosing Weight 70, kg, PRN Pain Score 7-10, Start date: 07/11/16 21:03:00 CDT, Duration: 30 day, Stop date: 08/10/16 21:02:00 CDTNotes: (Same as:MORPhine S ulfate) No Longer Active 07/12/2016 [facility] Ambien 5 mg, 1 tab, Route: PO, Drug form: TAB, Bedtime, Dosing Weight 70, kg, PRN Insomnia, Start date: 07/11/16 21:03:00 CDT, Duration: 30 day, Stop date: 08/10/16 21:02:00 CDTNotes: (Same As: Ambien) No Longer Active 07/12/2016 [facility] Zofran 4 mg, Route: IVP, Drug form: INJ, Q6H, Dosing Weight 70, kg, PRN Nausea, Start date: 07/11/16 20:52:00 CDT, Duration: 30 day, Stop date: 08/10/16 20:51:00 CDT Inactive 07/12/2016 [facility] Flagyl 500 mg, 100 mL, Route: IVPB, Drug form: INJ, ABXQ8H, Dosing Weight 70, kg, Priority: NOW, Start date: 07/11/16 14:39:00 CDT, Duration: 30 day, Stop date: 08/10/16 10:21:00 CDTNotes: (Same as: Flagyl) Avoid alcohol. No Longer Active 07/11/2016 [facility] Motrin 400 mg, 1 tab, Route: PO, Drug form: TAB, Q4H, Dosing Weight 70, kg, PRN For Temp > 100.4 F, Start date: 07/11/16 14:39:00 CDT, Duration: 30 day, Stop date: 08/10/16 14:38:00 CDTNotes: (Same as: Motrin) "Do Not Crush" Give with food. No Longer Active 07/11/2016 [facility] Tylenol 650 mg, 2 tab, Route: PO, Drug form: TAB, Q6H, Dosing Weight 70, kg, PRN For Temp > 100.4 F, Start date: 07/11/16 14:39:00 CDT, Duration: 30 day, Stop date: 08/10/16 14:38:00 CDTNotes: Do not exceed 4 gm/day. (Same as: Tylenol) No Longer Active 07/11/2016 [facility] Zofran 4 mg, 2 mL, Route: IVP, Drug form: INJ, Q6H, Dosing Weight 70, kg, PRN Nausea, Start date: 07/11/16 14:38:00 CDT, Duration: 30 day, Stop date: 08/10/16 14:37:00 CDTNotes: (Same as: Zofran) MEDICATION WASTE Product Size: 4 mg Product Wasted: ___ mg No Longer Active 07/11/2016 [facility] Ondansetron 4 mg, Route: IVP, ONCE, Dosing Weight 70, kg, PRN Nausea & Vomiting, Start date: 07/11/16 13:54:00 CDT Inactive 07/11/2016 [facility] Acetaminophen 325 MG / Hydrocodone Bitartrate 5 MG Oral Tablet 1 tab, Route: PO, Drug Form: TAB, Dosing Weight 70, kg, Q4H, PRN Pain Score 1-3, Start date: 07/11/16 13:54:00 CDT, Duration: 30 day, Stop date: 08/10/16 13:53:00 CDTNotes: (Same as: [place] 325/5) Do not exceed 4gm/day of acetaminophen. No Longer Active 07/11/2016 [facility] Sodium Chloride 0.154 MEQ/ML Injectable Solution 1,000 mL, Rate: 125 ml/hr, Infuse over: 8 hr, Route: IV, Dosing Weight 70 kg, Total Volume: 1,000, Start date: 07/11/16 13:54:00 CDT, Duration: 30 day, Stop date: 08/10/16 13:53:00 CDT No Longer Active 07/11/2016 [facility] Morphine 2 mg, 1 mL, Route: IVP, Drug form: INJ, Q4H, Dosing Weight 70, kg, PRN Pain Score 7-10, Start date: 07/11/16 12:14:00 CDT, Duration: 30 day, Stop date: 08/10/16 12:13:00 CDT, ..Notes: (Same as:MORPhine Sulfate) Inactive 07/11/2016 [facility] Sodium Chloride 0.154 MEQ/ML Injectable Solution 1,000 mL, Rate: 100 ml/hr, Infuse over: 10 hr, Route: IV, Dosing Weight 70 kg, Total Volume: 1,000, Start date: 07/11/16 11:47:00 CDT, Duration: 30 day, Stop date: 08/10/16 11:46:00 CDT Inactive 07/11/2016 [facility] Ondansetron 4 mg, Route: IVP, ONCE, Dosing Weight 70, kg, Priority: STAT, Start date: 07/11/16 9:53:00 CDT, Stop date: 07/11/16 9:53:00 CDT Inactive 07/11/2016 [facility] Famotidine 20 mg, Route: IVP, ONCE, Dosing Weight 70, kg, Priority: STAT, Start date: 07/11/16 9:53:00 CDT, Stop date: 07/11/16 9:53:00 CDT Inactive 07/11/2016 [facility] Morphine 4 mg, Route: IVP, ONCE, Dosing Weight 70, kg, Priority: STAT, Start date: 07/11/16 9:53:00 CDT, Stop date: 07/11/16 9:53:00 CDT Inactive 07/11/2016 [facility] Sodium Chloride 0.154 MEQ/ML Injectable Solution 1,000 mL, 2,000 ml/hr, Infuse Over: 30 minutes, Route: IV, ONCE, Priority: STAT, Dosing Weight 70 kg, Start date: 07/11/16 9:53:00 CDT, Duration: 1 doses or times, Stop date: 07/11/16 9:53:00 CDT Inactive 07/11/2016 [facility] Saline Flush 0.9% 10 mL, Route: IVP, Drug Form: INJ, Dosing Weight 70, kg, PRN, PRN Line Flush, Start date: 07/11/16 9:53:00 CDT, Duration: 30 day, Stop date: 08/10/16 9:52:00 CDTNotes: (Same as: BD Posiflush) Inactive 07/11/2016 [facility] 0.4 ML Enoxaparin sodium 100 MG/ML Prefilled Syringe [Lovenox] 40 mg, SUB-Q, Daily, X 14 day, # 14 syr, 0 Refill(s), Pharmacy: [facility] Active 04/03/2016 [facility] risperidone 0.5 mg oral tablet 0.5 mg=1 tab, PO, BID, PRN Anxiety | severe agitation, # 10 tab, 0 Refill(s), Pharmacy: [facility] Active 04/03/2016 [facility] doxycycline hyclate 100 mg oral tablet 100 mg=1 tab, PO, Q12H, # 60 tab, 0 Refill(s), Pharmacy: [facility] Active 04/03/2016 [facility] Acetaminophen 325 MG / Hydrocodone Bitartrate 5 MG Oral Tablet 1 tab, PO, Q4H, PRN Pain Score 4-6, # 30 tab, 0 Refill(s) Active 04/03/2016 [facility] tamsulosin 0.4 mg oral capsule 0.4 mg=1 cap, PO, Daily, 0 Refill(s) No Longer Active 04/02/2016 [facility] cyclobenzaprine 10 mg oral tablet 10 mg=1 tab, PO, BID, 0 Refill(s) Active 04/02/2016 [facility] doxepin 10 mg oral capsule 10 mg=1 cap, PO, Bedtime, PRN, 0 Refill(s) Active 04/02/2016 [facility] doxycycline hyclate 100 mg, 1 tab, Route: PO, Drug form: TAB, Q12H, Dosing Weight 69.091, kg, Start date: 04/01/16 14:00:00 CDT, Duration: 30 day, Stop date: 05/01/16 8:00:00 CDTNotes: NO MILK/ANTACIDS/IRON Take 1 hour before or 2 hours after dairy products No Longer Active 04/01/2016 [facility] doxycycline hyclate 100 MG Oral Capsule 100 mg, 1 cap, Route: PO, Drug form: CAP, [id number], Dosing Weight 69.091, kg, Start date: 03/31/16 21:00:00 CDT, Duration: 30 day, Stop date: 04/30/16 9:00:00 CDTNotes: (Same as: Vibramycin) No milk/antacids/iron. No Longer Active 04/01/2016 [facility] Haldol 5 mg, 1 mL, Route: IM, Drug form: INJ, Q6H, Dosing Weight 69.091, kg, PRN Agitation, Start date: 03/29/16 18:07:00 CDT, Duration: 30 day, Stop date: 04/28/16 18:06:00 CDTNotes: (Same as: Haldol) No Longer Active 03/29/2016 [facility] Magnesium Sulfate 2 gm, 50 mL, Route: IVPB, Drug form: INJ, ONCE, Dosing Weight 69.091, kg, Total dose=2 gm, Start date: 03/29/16 8:15:00 CDT, Duration: 1 doses or times, Stop date: 03/29/16 8:15:00 CDTNotes: WASTE: F/P - Sink; E - [facility] Trash Bin Inactive 03/29/2016 [facility] Melatonin 3 MG Extended Release Tablet 3 mg, 1 tab, Route: PO, Drug Form: TAB, Dosing Weight 69.091, kg, Bedtime, Start date: 03/28/16 21:00:00 CDT, Duration: 30 day, Stop date: 04/26/16 21:00:00 CDTNotes: (Same as: Melatonin) No Longer Active 03/29/2016 [facility] Risperdal 0.5 mg, 1 tab, Route: PO, Drug form: TAB, BID, Dosing Weight 69.091, kg, PRN Anxiety, Start date: 03/28/16 19:56:00 CDT, Duration: 30 day, Stop date: 04/27/16 19:55:00 CDT, severe agitationNotes: (Same as: Risperdal) No Longer Active 03/29/2016 [facility] Ancef + sodium chloride 0.9% INJ 100 mL 2 gm, Route: IVPB, [id number], Dosing Weight 69.091, kg, Start date: 03/28/16 18:00:00 CDT, Duration: 1 day, Stop date: 03/29/16 5:20:00 CDTNotes: (Same As: Sumi Martinez) MEDICATION WASTE Product Size: 1000 mg Product Wasted: ___ mg No Longer Active 03/28/2016 [facility] Enoxaparin 30 mg, 0.3 mL, Route: SUB-Q, Drug form: INJ, [id number], Dosing Weight 68.182, kg, Start date: 03/28/16 17:12:00 CDT, Duration: 30 day, Stop date: 04/26/16 21:20:00 CDTNotes: (Same as: Lovenox) No Longer Active 03/28/2016 [facility] pantoprazole 40 MG Enteric Coated Tablet [Protonix] 40 mg=1 tab, PO, BID, # 30 tab, 0 Refill(s) Active 03/28/2016 [facility] gabapentin 300 MG Oral Capsule 300 mg=1 cap, PO, QID, # 90 cap, 0 Refill(s) Active 03/28/2016 [facility] Ondansetron 4 mg, Route: IVP, ONCE, Dosing Weight 69.091, kg, PRN Nausea & Vomiting, Start date: 03/28/16 15:38:00 CDT Inactive 03/28/2016 [facility] Naloxone 0.4 mg, Route: IVP, Q2MIN, Dosing Weight 69.091, kg, PRN Narcotic Reversal, Start date: 03/28/16 15:38:00 CDT, Duration: 8 doses or times, Stop date: Limited # of times Inactive 03/28/2016 [facility] Flumazenil 0.2 mg, Route: IVP, PRN, Dosing Weight 69.091, kg, PRN Benzodiazepine Reversal, Initial dose, Start date: 03/28/16 15:38:00 CDT, Duration: 30 day, Stop date: 04/27/16 15:37:00 CDT Inactive 03/28/2016 [facility] Morphine 2 mg, Route: IVP, Q5Min, Dosing Weight 69.091, kg, PRN Pain Score 4-6, Start date: 03/28/16 15:38:00 CDT, Duration: 5 doses or times, Stop date: Limited # of times Inactive 03/28/2016 [facility] Hydromorphone 0.5 mg, Route: IVP, Q5Min, Dosing Weight 69.091, kg, PRN Pain Score 7-10, Start date: 03/28/16 15:38:00 CDT, Duration: 4 doses or times, Stop date: Limited # of times Inactive 03/28/2016 [facility] Hydralazine 10 mg, Route: IVP, Q20Min, Dosing Weight 69.091, kg, PRN Elevated BP, Start date: 03/28/16 15:38:00 CDT, Duration: 2 doses or times, Stop date: Limited # of times Inactive 03/28/2016 [facility] Trazodone Hydrochloride 100 MG Oral Tablet 100 mg, 1 tab, Route: PO, Drug form: TAB, Bedtime, Dosing Weight 69.091, kg, PRN Insomnia, Start date: 03/28/16 12:07:00 CDT, Duration: 30 day, Stop date: 04/27/16 12:06:00 CDTNotes: (Same As: Desyrel) No Longer Active 03/28/2016 [facility] Baclofen 10 mg, 1 tab, Route: PO, Drug form: TAB, Q8H, Dosing Weight 69.091, kg, Start date: 03/28/16 9:00:00 CDT, Duration: 30 day, Stop date: 04/27/16 8:00:00 CDTNotes: (Same As: Fanta) No Longer Active 03/28/2016 [facility] Amlodipine 5 mg, 1 tab, Route: PO, Drug form: TAB, Daily, Dosing Weight 69.091, kg, Start date: 03/28/16 9:00:00 CDT, Duration: 30 day, Stop date: 04/26/16 9:00:00 CDTNotes: (Same as: Norvasc) No Longer Active 03/28/2016 [facility] Sucralfate 1 gm, 1 tab, Route: PO, Drug form: TAB, QID, Dosing Weight 69.091, kg, Start date: 03/28/16 9:00:00 CDT, Duration: 30 day, Stop date: 04/26/16 21:00:00 CDTNotes: May interfere w/enteral feeds - Take 1 hr before or 2 hr after antacids, dairy pdt, meals & minerals - On empty stomach. (Same As: Carafate) No Longer Active 03/28/2016 [facility] pantoprazole 40 mg, 1 tab, Route: PO, Drug form: ECTAB, Before Breakfast, Dosing Weight 69.091, kg, Start date: 03/28/16 9:00:00 CDT, Duration: 30 day, Stop date: 04/27/16 7:30:00 CDTNotes: Tablet should not be c hewed or crushed. (Same as: Protonix) No Longer Active 03/28/2016 [facility] Propranolol 40 mg, 1 tab, Route: PO, Drug form: TAB, Q8H, Dosing Weight 69.091, kg, Start date: 03/28/16 9:00:00 CDT, Duration: 30 day, Stop date: 04/27/16 8:00:00 CDTNotes: Give with food. (Same as: Inderal) No Longer Active 03/28/2016 [facility] gabapentin 100 MG Oral Capsule 100 mg, 1 cap, Route: PO, Drug form: CAP, QID, Dosing Weight 69.091, kg, Start date: 03/28/16 9:00:00 CDT, Duration: 30 day, Stop date: 04/26/16 21:00:00 CDTNotes: (Same as: Neurontin) No Longer Active 03/28/2016 [facility] Fluoxetine 60 mg, 3 cap, Route: PO, Drug form: CAP, Daily, Dosing Weight 69.091, kg, Start date: 03/28/16 9:00:00 CDT, Duration: 30 day, Stop date: 04/26/16 9:00:00 CDTNotes: (Same as: Prozac, Sarafem) No Longer Active 03/28/2016 [facility] Dicyclomine 20 mg, 1 tab, Route: PO, Drug form: TAB, QID, Dosing Weight 69.091, kg, PRN Other -See Comment, Start date: 03/28/16 9:00:00 CDT, Duration: 30 day, Stop date: 04/27/16 8:59:00 CDTNotes: (Same as: Bentyl) No Longer Active 03/28/2016 [facility] Clonidine Hydrochloride 0.1 MG Oral Tablet 0.1 mg, 1 tab, Route: PO, Drug form: TAB, Q12H, Dosing Weight 69.091, kg, Start date: 03/28/16 9:00:00 CDT, Duration: 30 day, Stop date: 04/26/16 21:00:00 CDTNotes: (Same As: Catapres) No Longer Active 03/28/2016 [facility] Hydralazine 10 mg, 0.5 mL, Route: IVP, Drug form: INJ, Q6H, Dosing Weight 69.091, kg, PRN Other -See Comment, Start date: 03/28/16 8:28:00 CDT, Duration: 30 day, Stop date: 04/27/16 8:27:00 CDT, SBP > 180 or DBP > 110Notes: (Same as: Apresoline) Push over 5 minutes No Longer Active 03/28/2016 [facility] Albuterol 0.83 MG/ML Inhalant Solution 2.49 mg, 3 mL, Route: NEB, Drug form: SOLN, Q6H, Dosing Weight 69.091, kg, PRN Respiratory Protocol, Start date: 03/28/16 8:02:00 CDT, Duration: 30 day, Stop date: 04/27/16 8:01:00 CDTNotes: SEE RT DOCUMENTATION (Same as: Proventil) No Longer Active 03/28/2016 [facility] Alprazolam 0.5 MG Oral Tablet 0.5 mg, 2 tab, Route: PO, Drug form: TAB, BID, Dosing Weight 69.091, kg, PRN Anxiety, Start date: 03/28/16 7:36:00 CDT, Duration: 30 day, Stop date: 04/27/16 7:35:00 CDTNotes: With food or milk (Same as: Xanax) No Longer Active 03/28/2016 [facility] Morphine 4 mg, Route: IVP, ONCE, Dosing Weight 68.182, kg, Start date: 03/28/16 6:19:00 CDT, Stop date: 03/28/16 6:19:00 CDT Inactive 03/28/2016 [facility] Ondansetron 4 mg, 2 mL, Route: IVP, Drug form: INJ, Q6H, Dosing Weight 68.182, kg, PRN Nausea & Vomiting, Start date: 03/28/16 5:14:00 CDT, Duration: 30 day, Stop date: 04/27/16 5:13:00 CDTNotes: (Same as: Phyllis) MEDICATION WASTE Product Size: 4 mg Product Wasted: ___ mg No Longer Active 03/28/2016 [facility] Acetaminophen 325 MG / Hydrocodone Bitartrate 5 MG Oral Tablet 2 tab, Route: PO, Drug Form: TAB, Dosing Weight 68.182, kg, Q4H, PRN Pain Score 7-10, Start date: 03/28/16 5:14:00 CDT, Duration: 30 day, Stop date: 04/27/16 5:13:00 CDTNotes: (Same as: [place] 325/5) Do not exceed 4gm/day of acetaminophen. No Longer Active 03/28/2016 [facility] Acetaminophen 650 mg, 2 tab, Route: PO, Drug form: TAB, Q4H, Dosing Weight 68.182, kg, PRN Pain 1-3/Temp > 100.4 F, Start date: 03/28/16 5:14:00 CDT, Duration: 30 day, Stop date: 04/27/16 5:13:00 CDTNotes: Do not exceed 4 gm/day. (Same as: Tylenol) No Longer Active 03/28/2016 [facility] Docusate 100 mg, 1 cap, Route: PO, Drug form: CAP, BID, Dosing Weight 68.182, kg, PRN Constipation, Start date: 03/28/16 5:14:00 CDT, Duration: 30 day, Stop date: 04/27/16 5:13:00 CDTNotes: (Same as: Colace) (Do Not Crush) No Longer Active 03/28/2016 [facility] Sodium Chloride 0.154 MEQ/ML Injectable Solution 1,000 mL, 1,000 ml/hr, Infuse Over: 1 hr, Route: IV, ONCE, Priority: STAT, Dosing Weight 68.182 kg, Start date: 03/28/16 3:34:00 CDT, Duration: 1 doses or times, Stop date: 03/28/16 3:34:00 CDT Inactive 03/28/2016 [facility] Dilaudid 0.5 mg, Route: IVP, ONCE, Dosing Weight 68.182, kg, Priority: STAT, Start date: 03/28/16 3:11:00 CDT, Stop date: 03/28/16 3:11:00 CDT Inactive 03/28/2016 [facility] Naloxone 0.4 mg, 1 mL, Route: IVP, Drug form: INJ, ONCE, Dosing Weight 68.182, kg, Priority: STAT, Start date: 03/27/16 22:58:00 CDT, Stop date: 03/27/16 22:58:00 CDTNotes: Same as Narcan Inactive 03/28/2016 [facility] Ondansetron 4 mg, 2 mL, Route: IVP, Drug form: INJ, ONCE, Dosing Weight 68.182, kg, Priority: STAT, Start date: 03/27/16 19:52:00 CDT, Stop date: 03/27/16 19:52:00 CDTNotes: (Same as: Zofran) MEDICATION WASTE Product Size: 4 mg Product Wasted: ___ mg Inactive 03/28/2016 [facility] Morphine 2 mg, 1 mL, Route: IVP, Drug form: INJ, ONCE, Dosing Weight 68.182, kg, Priority: STAT, Start date: 03/27/16 19:52:00 CDT, Stop date: 03/27/16 19:52:00 CDTNotes: (Same as:MORPhine Sulfate) Inactive 03/28/2016 [facility] Saline Flush 0.9% 10 mL, Route: IVP, Drug Form: INJ, Dosing Weight 68.182, kg, PRN, PRN Line Flush, Start date: 03/27/16 19:52:00 CDT, Duration: 30 day, Stop date: 04/26/16 19:51:00 CDTNotes: (Same as: BD Posiflush) No Longer Active 03/28/2016 [facility] Sodium Chloride 0.154 MEQ/ML Injectable Solution 1,000 mL, 1,000 ml/hr, Infuse Over: 1 hr, Route: IV, 1,000, Drug form: INJ, ONCE, Priority: STAT, Dosing Weight 68.182 kg, Start date: 03/27/16 19:52:00 CDT, Duration: 1 doses or times, Stop date: 03/27/16 19:52:00 CDT Inactive 03/28/2016 [facility] Acetaminophen 325 MG / Hydrocodone Bitartrate 10 MG Oral Tablet [[place] 10/325] 1 tab, Route: PO, Drug Form: TAB, Dosing Weight 68.182, kg, ONCE, STAT, Start date: 03/27/16 19:37:00 CDT, Stop date: 03/27/16 19:37:00 CDTNotes: Do not exceed 4gm/day of acetaminophen. (Same as: [place] 325/10) Inactive 03/28/2016 [facility] Prolia 60MG SQ Subcutaneous No Longer Active 60 MG/ML Subcutaneous Q 6 MONTHS [facility] 12/11/2015 [facility] Boniva 3 ml Intravenous Active 3 MG/3ML Intravenous q3mths [facility] 12/11/2015 [facility] Vitamin D (Ergocalciferol) 1 capsule Orally Active 94727 UNIT Orally ONCE A WEEK [facility] 10/02/2015 [facility] Forteo 0.08 ml Subcutaneous Active 600 MCG/2.4ML Subcutaneous Once a day [facility] 09/05/2015 [facility] Tramadol one tab orally Active 50 mg orally every 4-6 hours prn pain [facility] 08/28/2015 [facility] Ondansetron 4 mg, Route: IVP, ONCE, Dosing Weight 67.869, kg, PRN Nausea & Vomiting, Start date: 08/01/15 14:53:00 Inactive 08/01/2015 [facility] Oxycodone 10 mg, Route: PO, Drug form: TAB, Q4H, Dosing Weight 67.869, kg, PRN Pain Score 7-10, Start date: 08/01/15 14:53:00, Duration: 30 day, Stop date: 08/31/15 14:52:00 Inactive 08/01/2015 [facility] Hydromorphone 0.5 mg, Route: IVP, Q5Min, Dosing Weight 67.869, kg, PRN Pain Score 7-10, Start date: 08/01/15 14:53:00, Duration: 4 doses or times, Stop date: Limited # of times Inactive 08/01/2015 [facility] Morphine 4 mg, Route: IVP, Q5Min, Dosing Weight 67.869, kg, PRN Pain Score 7-10, Start date: 08/01/15 14:53:00, Duration: 3 doses or times, Stop date: Limited # of times Inactive 08/01/2015 [facility] Meperidine 12.5 mg, Route: IVP, Q30Min, Dosing Weight 67.869, kg, PRN Other -See Comment, For shivering, Start date: 08/01/15 14:53:00, Duration: 2 doses or times, Stop date: Limited # of times Inactive 08/01/2015 [facility] Oxycodone Hydrochloride 1 MG/ML Oral Solution 10 mg, Route: NG, Drug form: LIQ, Q4H, Dosing Weight 67.869, kg, PRN Pain Score 7-10, Start date: 08/01/15 14:53:00, Duration: 30 day, Stop date: 08/31/15 14:52:00 Inactive 08/01/2015 [facility] Ketorolac 30 mg, Route: IVP, ONCE, Dosing Weight 67.869, kg, Start date: 08/01/15 14:53:00, Duration: 1 doses or times, Stop date: 08/01/15 14:53:00 Inactive 08/01/2015 [facility] Fentanyl 50 microgram, Route: IVP, Q5Min, Dosing Weight 67.869, kg, PRN Pain Score 7-10, Start date: 08/01/15 14:53:00, Duration: 2 doses or times, Stop date: Limited # of times Inactive 08/01/2015 [facility] Flumazenil 0.2 mg, Route: IVP, PRN, Dosing Weight 67.869, kg, PRN Benzodiazepine Reversal, Initial dose, Start date: 08/01/15 14:53:00, Duration: 30 day, Stop date: 08/31/15 13:52:00 Inactive 08/01/2015 [facility] Naloxone 0.04 mg, Route: IVP, Q2MIN, Dosing Weight 67.869, kg, PRN Narcotic Reversal, Start date: 08/01/15 14:53:00, Duration: 8 doses or times, Stop date: Limited # of times Inactive 08/01/2015 [facility] Albuterol 0.83 MG/ML Inhalant Solution 2.49 mg, Route: NEB, Q20Min, Dosing Weight 67.869, kg, PRN Wheezing, Priority: STAT, Start date: 08/01/15 14:53:00, Duration: 30 day, Stop date: 08/31/15 13:52:00 Inactive 08/01/2015 [facility] Acetaminophen 325 MG / Hydrocodone Bitartrate 5 MG Oral Tablet 1 tab, Route: PO, Dosing Weight 67.869, kg, Q4H, PRN Pain Score 1-3, Start date: 08/01/15 14:47:00, Duration: 30 day, Stop date: 08/31/15 14:46:00 Inactive 08/01/2015 [facility] Morphine 2 mg, Route: IVP, Q3H, Dosing Weight 67.869, kg, PRN Pain Score 1-3, Start date: 08/01/15 14:47:00, Duration: 30 day, Stop date: 08/31/15 14:46:00 Inactive 08/01/2015 [facility] Oxymetazoline hydrochloride 0.5 MG/ML Nasal [place] [Afrin] 2 spray, Route: NASAL, Q1H, PRN Bleeding, Start date: 08/01/15 14:47:00, Duration: 3 day, Stop date: 08/04/15 14:46:00 Inactive 08/01/2015 [facility] Clindamycin 600 mg, Route: IVPB, ONCALL, Dosing Weight 67.869, kg, Start date: 08/01/15 11:00:00, Duration: 30 day, Stop date: 08/31/15 9:59:00 Inactive 08/01/2015 [facility] Dexamethasone 8 mg, Route: IV, ONCALL, Dosing Weight 67.869, kg, Start date: 08/01/15 11:00:00, Duration: 30 day, Stop date: 08/31/15 9:59:00 Inactive 08/01/2015 [facility] Sodium Chloride 0.154 MEQ/ML Injectable Solution 1,000 mL, Rate: 25 ml/hr, Infuse over: 40 hr, Route: IV, Dosing Weight 67.869 kg, Total Volume: 1,000, Start date: 08/01/15 10:29:00, Duration: 30 day, Stop date: 08/31/15 10:28:00 Inactive 08/01/2015 [facility] Calcium Chloride 0.0014 MEQ/ML / Potassium Chloride 0.004 MEQ/ML / Sodium Chloride 0.103 MEQ/ML / Sodium Lactate 0.028 MEQ/ML Injectable Solution 1,000 mL, Rate: 25 ml/hr, Infuse over: 40 hr, Route: IV, Dosing Weight 67.869 kg, Total Volume: 1,000, Start date: 08/01/15 10:29:00, Duration: 30 day, Stop date: 08/31/15 10:28:00 Inactive 08/01/2015 [facility] FLUoxetine 20 mg oral capsule 60 mg=3 cap, PO, Daily, 0 Refill(s) Active 07/28/2015 [facility] Oxymetazoline hydrochloride 0.5 MG/ML Nasal [place] [Afrin] 2 spray, Route: NASAL, PRE OP, PRN Nasal Congestion, Start date: 07/28/15 7:54:00, Duration: 3 day, Stop date: 07/31/15 7:53:00 No Longer Active 07/28/2015 [facility] Trazodone Hydrochloride 100 MG Oral Tablet 100 mg=1 tab, PO, Bedtime, # 30 tab, 1 Refill(s) Active 07/28/2015 [facility] 1 ML denosumab 60 MG/ML Prefilled Syringe [Prolia] 60 mg=1 mL, SUB-Q, ONCE, Repeat every 6 months, # 1 mL, 0 Refill(s) Active 07/28/2015 [facility] FLUoxetine 40 mg oral capsule 120 mg=3 cap, PO, Daily, # 30 cap, 0 Refill(s) Inactive 07/28/2015 [facility] dicyclomine 20 mg oral tablet 20 mg=1 tab, PO, QID, # 28 tab, 0 Refill(s) Active 07/28/2015 [facility] chlorzoxazone 500 mg oral tablet 500 mg=1 tab, PO, QID, # 21 tab, 0 Refill(s) Active 07/28/2015 [facility] gabapentin 100 MG Oral Capsule 100 mg=1 cap, PO, QID, # 90 cap, 1 Refill(s) Active 07/28/2015 [facility] sucralfate 1 g oral tablet 1 gm=1 tab, PO, QID, # 120 tab, 0 Refill(s) Active 08/02/2014 [facility] propranolol 40 mg oral tablet 40 mg=1 tab, PO, TID, 0 Refill(s) Active 08/02/2014 [facility] pantoprazole 40 MG Granules [Protonix] =1 Pack, PO, Daily, # 30 ea, 0 Refill(s) Active 08/02/2014 [facility] baclofen 10 mg oral tablet 10 mg=1 tab, PO, TID, # 90 tab, 0 Refill(s) Active 08/02/2014 [facility] gabapentin 400 MG Oral Capsule 400 mg=1 cap, PO, QID, # 360 cap, 0 Refill(s) Active 08/02/2014 [facility] ALPRAZOLam 0.5 mg oral tablet, disintegrating 0.5 mg=1 tab, PO, BID, for anxiety, 0 Refill(s) Active 08/02/2014 [facility] amLODIPine 5 mg oral tablet 5 mg=1 tab, PO, Daily, # 30 tab, 0 Refill(s) Active 08/02/2014 [facility] Clonidine Hydrochloride 0.1 MG Oral Tablet 0.1 mg, PO, BID, # 60 tab, 0 Refill(s) Active 08/02/2014 [facility] FLUoxetine 40 mg oral capsule 40 mg=1 cap, PO, BID, 0 Refill(s) Active 08/02/2014 [facility] Cyclobenzaprine HCl 1 tablet Orally Active 10 MG Orally BID [facility] Clonidine HCl 1 tablet at bedtime Orally Active 0.1 MG Orally Twice a day [facility] Alprazolam 1 tablet Orally Active 0.5 MG Orally Twice a day [facility] Trazodone HCl as directed Orally Active 100 MG Orally [facility] Fluoxetine HCl 1 capsule in the morning Orally Active 40 MG Orally Twice a day [facility] Amlodipine Besylate 1 tablet Orally Active 5 MG Orally Once a day [facility] Amitiza 1 capsule with food Orally Active 24 MCG Orally Twice a day [facility] Hydrocodone-Acetaminophen 1 tablet as needed Orally Active 5- 325 MG Orally every 6 hrs [facility] Pantoprazole Sodium 1 tablet Orally Active 40 MG Orally Once a day [facility] Prolia 60MG SQ Subcutaneous Active 60 MG/ML Subcutaneous Q 6 MONTHS [facility] Sucralfate 1 tablet on an empty stomach Orally Active 10 MG Orally Four times a day [facility] Gabapentin 1 capsule Orally Active 900mg Orally Three times a day [facility] Dicyclomine HCl 1 tablet Orally Active 20 MG Orally Four times a day [facility] Propranolol HCl 1 tablet Orally Active 10 MG Orally Three times a day [place] [facility] Vitamin D (Ergocalciferol) TAKE ONE (1) CAPSULE(S) BY MOUTH ONCE A WEEK. NA Active [id number] UNIT [place] [facility] Allergies, Adverse Reactions, Alerts Substance Category Reaction Severity Reaction type Status Date Reported Comments Source N.K.D.A. Adverse Reaction Info Not Available Adverse Reaction Active 12/05/2015 [facility] Immunizations Immunization Date Given Site Status Last Updated Comments Source influenza virus vaccine, inactivated 07/15/2016 Left deltoid completed [facility] JENARO Choudhary,[facility] influenza virus vaccine, inactivated 07/15/2016 Left del[facility]id [facility] pneumococcal 13-valent vaccine 07/13/2016 Not Given [facility] pneumococcal 13-valent vaccine 07/13/2016 Not Given JENARO Choudhary,[facility] pneumococcal 13-valent vaccine 07/13/2016 Not Given [facility] Results Order Name Results Value Reference Range Date Interpretation Comments Source ELECTROLYTES AGAP 10.5 meq/L 10.0 - 20.0 04/07/2018 [facility] ELECTROLYTES eGFR 70 mL/min/1.73m2 04/07/2018 Result Comment: The eGFR is calculated using the CKD-EPI formula. In most young, healthy individuals the eGFR will be >90 mL/min/1.73m2. The eGFR declines with age. An eGFR of 60-89 may be normal in some populations, particularly the elderly, for whom the CKD-EPI formula has not been extensively validated. Use of the eGFR is not recommended in the following populations: Individuals with unstable creatinine concentrations, including patients and those with serious co-morbid conditions. Patients with extremes in muscle mass or diet. The data above are obtained from the National Kidney Disease Education Program (NKDEP) which additionally recommends that when the eGFR is used in patients with extremes of body mass index for purposes of drug dosing, the eGFR should be multiplied by the estimated BMI. [facility] ELECTROLYTES Chloride Lvl 107 meq/L 95 - 109 04/07/2018 [facility] ELECTROLYTES Potassium Lvl 3.5 meq/L 3.5 - 5.1 04/07/2018 [facility] ELECTROLYTES Sodium Lvl 139 meq/L 135 - 145 04/07/2018 [facility] ELECTROLYTES Calcium Lvl 8.9 mg/dL 8.5 - 10.5 04/07/2018 [facility] ELECTROLYTES CO2 25 meq/L 24 - 32 04/07/2018 [facility] ELECTROLYTES Glucose Lvl 111 mg/dL 70 - 99 04/07/2018 [facility] ELECTROLYTES BUN 17 mg/dL 7 - 22 04/07/2018 [facility] ELECTROLYTES Creatinine Lvl 0.86 mg/dL 0.50 - 1.40 04/07/2018 [facility] RBC 4.01 M/CMM 4.20 - 5.40 04/07/2018 [facility] WBC 8.3 K/CMM 3.7 - 10.4 04/07/2018 [facility] Platelet 290 K/CMM 133 - 450 04/07/2018 [facility] MPV 7.5 fL 7.4 - 10.4 04/07/2018 [facility] Hgb 11.3 g/dL 12.0 - 16.0 04/07/2018 [facility] Hct 35.3 % 36.0 - 48.0 04/07/2018 [facility] MCHC 32.2 g/dL 32.0 - 36.0 04/07/2018 [facility] RDW 16.1 % 11.5 - 14.5 04/07/2018 [facility] MCH 28.3 pg 27.0 - 31.0 04/07/2018 [facility] MCV 87.9 fL 80.0 - 98.0 04/07/2018 [facility] Basophils 0.6 % 0.0 - 1.0 04/07/2018 [facility] Segs-Bands # 5.2 K/CMM 1.5 - 8.1 04/07/2018 [facility] Monocytes # 0.7 K/CMM 0.0 - 0.8 04/07/2018 [facility] Lymphocytes # 2.1 K/CMM 1.0 - 5.5 04/07/2018 [facility] Eosinophils # 0.2 K/CMM 0.0 - 0.5 04/07/2018 [facility] HEMATOLOGY Basophils # 0.1 K/CMM 0.0 - 0.2 04/07/2018 [facility] HEMATOLOGY Segs 63.0 % 45.0 - 75.0 04/07/2018 [facility] HEMATOLOGY Lymphocytes 25.3 % 20.0 - 40.0 04/07/2018 [facility] HEMATOLOGY Eosinophils 2.7 % 0.0 - 4.0 04/07/2018 [facility] HEMATOLOGY Monocytes 8.4 % 2.0 - 12.0 04/07/2018 [facility] URINE AND STOOL UA Color Yellow *NA* (04/07/18 1:21 AM) Yellow 04/07/2018 [facility] URINE AND STOOL UA Turbidity Clear (04/07/18 1:21 AM) Clear 04/07/2018 [facility] URINE AND STOOL UA Protein Negative mg/dL Negative mg/dL 04/07/2018 [facility] URINE AND STOOL UA Spec Grav 1.023 <=1.030 04/07/2018 [facility] URINE AND STOOL UA pH 5.0 5.0 - 8.0 04/07/2018 [facility] URINE AND STOOL UA Ketones Negative mg/dL Negative mg/dL 04/07/2018 [facility] URINE AND STOOL UA Bili Negative *NA* (04/07/18 1:21 AM) Negative 04/07/2018 [facility] URINE AND STOOL UA Glucose Negative mg/dL Negative mg/dL 04/07/2018 [facility] URINE AND STOOL UA Blood Negative (04/07/18 1:21 AM) Negative 04/07/2018 [facility] URINE AND STOOL UA Nitrite Negative (04/07/18 1:21 AM) Negative 04/07/2018 [facility] URINE AND STOOL UA WBC 20 /HPF 0 - 5 04/07/2018 [facility] URINE AND STOOL UA Leuk Est Trace *ABN* (04/07/18 1:21 AM) Negative 04/07/2018 [facility] URINE AND STOOL UA Sq Epi Occasional /LPF Few /LPF 04/07/2018 [facility] URINE AND STOOL UA RBC 2 /HPF 0 - 2 04/07/2018 [facility] URINE AND STOOL UA [place] Yeast Occasional /HPF None Seen /HPF 04/07/2018 [facility] URINE AND STOOL UA Urobilinogen <=1.0 mg/dL 0.1 - 1.0 04/07/2018 [facility] CHEM PANEL eGFR 50 mL/min/1.73m2 04/05/2018 Result Comment: The eGFR is calculated using the CKD-EPI formula. In most young, healthy individuals the eGFR will be >90 mL/min/1.73m2. The eGFR declines with age. An eGFR of 60-89 may be normal in some populations, particularly the elderly, for whom the CKD-EPI formula has not been extensively validated. Use of the eGFR is not recommended in the following populations: Individuals with unstable creatinine concentrations, including patients and those with serious co-morbid conditions. Patients with extremes in muscle mass or diet. The data above are obtained from the National Kidney Disease Education Program (NKDEP) which additionally recommends that when the eGFR is used in patients with extremes of body mass index for purposes of drug dosing, the eGFR should be multiplied by the estimated BMI. [facility] CHEM PANEL BUN 36 mg/dL 7 - 22 04/05/2018 [facility] CHEM PANEL Glucose Lvl 132 mg/dL 70 - 99 04/05/2018 [facility] CHEM PANEL Calcium Lvl 9.1 mg/dL 8.5 - 10.5 04/05/2018 [facility] CHEM PANEL CO2 22 meq/L 24 - 32 04/05/2018 [facility] CHEM PANEL Potassium Lvl 3.8 meq/L 3.5 - 5.1 04/05/2018 [facility] CHEM PANEL Creatinine Lvl 1.14 mg/dL 0.50 - 1.40 04/05/2018 [facility] CHEM PANEL Chloride Lvl 115 meq/L 95 - 109 04/05/2018 [facility] CHEM PANEL Sodium Lvl 147 meq/L 135 - 145 04/05/2018 [facility] CHEM PANEL AGAP 13.8 meq/L 10.0 - 20.0 04/05/2018 [facility] HEMATOLOGY Basophils 0.6 % 0.0 - 1.0 04/05/2018 [facility] HEMATOLOGY Lymphocytes # 2.7 K/CMM 1.0 - 5.5 04/05/2018 [facility] HEMATOLOGY Segs-Bands # 7.2 K/CMM 1.5 - 8.1 04/05/2018 [facility] HEMATOLOGY Eosinophils # 0.1 K/CMM 0.0 - 0.5 04/05/2018 [facility] HEMATOLOGY Monocytes # 1.5 K/CMM 0.0 - 0.8 04/05/2018 [facility] HEMATOLOGY Basophils # 0.1 K/CMM 0.0 - 0.2 04/05/2018 [facility] HEMATOLOGY Segs 62.4 % 45.0 - 75.0 04/05/2018 [facility] HEMATOLOGY Monocytes 13.0 % 2.0 - 12.0 04/05/2018 [facility] HEMATOLOGY Lymphocytes 23.1 % 20.0 - 40.0 04/05/2018 [facility] Eosinophils 0.9 % 0.0 - 4.0 04/05/2018 [facility] MPV 7.2 fL 7.4 - 10.4 04/05/2018 [facility] WBC 11.5 K/CMM 3.7 - 10.4 04/05/2018 [facility] Hct 37.8 % 36.0 - 48.0 04/05/2018 [facility] Hgb 12.4 g/dL 12.0 - 16.0 04/05/2018 [facility] RBC 4.30 M/CMM 4.20 - 5.40 04/05/2018 [facility] MCHC 32.7 g/dL 32.0 - 36.0 04/05/2018 [facility] MCH 28.7 pg 27.0 - 31.0 04/05/2018 [facility] MCV 87.9 fL 80.0 - 98.0 04/05/2018 [facility] Platelet 286 K/CMM 133 - 450 04/05/2018 [facility] RDW 17.3 % 11.5 - 14.5 04/05/2018 [facility] URINE AND STOOL UA Leuk Est Negative (04/04/18 1:34 PM) Negative 04/04/2018 [facility] URINE AND STOOL UA Nitrite Negative (04/04/18 1:34 PM) Negative 04/04/2018 [facility] URINE AND STOOL UA Bili Negative *NA* (04/04/18 1:34 PM) Negative 04/04/2018 [facility] URINE AND STOOL UA Ketones Negative mg/dL Negative mg/dL 04/04/2018 [facility] URINE AND STOOL UA RBC 1 /HPF 0 - 2 04/04/2018 [facility] URINE AND STOOL UA Sq Epi Occasional /LPF Few /LPF 04/04/2018 [facility] URINE AND STOOL UA Blood Small *ABN* (04/04/18 1:34 PM) Negative 04/04/2018 [facility] URINE AND STOOL UA WBC 4 /HPF 0 - 5 04/04/2018 [facility] URINE AND STOOL UA Bacteria Occasional /HPF None Seen /HPF 04/04/2018 [facility] URINE AND STOOL UA Urobilinogen <=1.0 mg/dL 0.1 - 1.0 04/04/2018 [facility] URINE AND STOOL UA Glucose Negative mg/dL Negative mg/dL 04/04/2018 [facility] URINE AND STOOL UA Protein 30 mg/dL Negative mg/dL 04/04/2018 [facility] URINE AND STOOL UA pH 5.0 5.0 - 8.0 04/04/2018 [facility] URINE AND STOOL UA Spec Grav 1.026 <=1.030 04/04/2018 [facility] URINE AND STOOL UA Turbidity Clear (04/04/18 1:34 PM) Clear 04/04/2018 [facility] URINE AND STOOL UA Color Yellow *NA* (04/04/18 1:34 PM) Yellow 04/04/2018 [facility] Culture: Urine No Growth 04/04/2018 [facility] Chest 1view DX Chest 1view DX Patient Name: CORDELIA DOWLING : 1950; Age: 67 years y/o Female MR: [id number] * CHEST, portable, 1 view HISTORY: Fever. COMPARISON: 03/30/2018. A study of 09/25/2016 and a chest computed tomography scan of 03/27/2016 were reviewed. TECHNIQUE: A portable frontal radiograph of the chest was obtained. FINDINGS: There are emphysematous changes. The lungs are clear. There are no pleural effusions. The heart is normal in size. There are postoperative change involving the cervical spine. There is moderate lumbar scoliosis, convexity to the right. The regional skeleton is otherwise unremarkable. IMPRESSION: 1. No active disease. 2. Chronic obstructive pulmonary disease/emphysema. 3. Postoperative changes, cervical region. 4. Lumbar scoliosis. SL: [id number] 04/04/2018 - - Read by: Jin Sheldon MD Dictated Date/time: 04/04/18 12:27 Electronically Signed by: Jin Sheldon MD 04/04/18 12:28 FINAL REPORT [facility] Brain wo contrast CT Brain wo contrast CT Clinical Indication: - SEIZURE. Comparison: Comparison is made to CT/MR study of 03/30/2018 TECHNIQUE: CT images were obtained from the foramen magnum to the vertex without the use of intravenous contrast on a multidetector CT. Coronal and sagittal reconstructions were obtained. CT radiation dose DLP: 360 mGy-cm FINDINGS: BRAIN PARENCHYMA: There is generalized brain parenchymal atrophy related to the patient's age. Mild nonspecific periventricular white matter disease changes are noted. Atherosclerotic calcifications are present within the carotid siphons and distal vertebral arteries. There are no focal mass lesions on this noncontrast head CT. There is no mass effect, midline shift or edema. There are no intra-axial or extra-axial fluid collections, intraventricular or intraparenchymal hemorrhage. There is no noncontrast CT evidence of a subacute stroke. The pineal, sellar, brainstem, cerebellum and skull base regions appear unremarkable. VENTRICLES: The lateral ventricles, third and fourth ventricles appear unremarkable. The basilar cisterns are normal. ORBITS, MASTOIDS AND PARANASAL SINUSES: The visualized orbits and paranasal sinuses are unremarkable. The mastoid air cells are clear. SKULL: There are no calvarial abnormalities seen. If there is further concern for intracranial pathology or acute stroke, MRI of the brain may be performed for complete assessment. IMPRESSION: Chronic age-related and small vessel ischemic changes without mass, hemorrhage or subacute stroke. Findings are stable. SL: NICOLE 04/03/2018 - - Read by: Sabas Crowley MD Dictated Date/time: 04/04/18 09:09 Electronically Signed by: Sabas Crowley MD 04/04/18 09:11 FINAL REPORT [facility] [employer] PANEL eGFR 57 mL/min/1.73m2 04/02/2018 Result Comment: The eGFR is calculated using the CKD-EPI formula. In most young, healthy individuals the eGFR will be >90 mL/min/1.73m2. The eGFR declines with age. An eGFR of 60-89 may be normal in some populations, particularly the elderly, for whom the CKD-EPI formula has not been extensively validated. Use of the eGFR is not recommended in the following populations: Individuals with unstable creatinine concentrations, including patients and those with serious co-morbid conditions. Patients with extremes in muscle mass or diet. The data above are obtained from the National Kidney Disease Education Program (NKDEP) which additionally recommends that when the eGFR is used in patients with extremes of body mass index for purposes of drug dosing, the eGFR should be multiplied by the estimated BMI. [employer] CHEM PANEL AGAP 17.7 meq/L 10.0 - 20.0 04/02/2018 [facility] CHEM PANEL Chloride Lvl 108 meq/L 95 - 109 04/02/2018 [facility] CHEM PANEL Potassium Lvl 4.7 meq/L 3.5 - 5.1 04/02/2018 [facility] CHEM PANEL Sodium Lvl 141 meq/L 135 - 145 04/02/2018 [facility] CHEM PANEL CO2 20 meq/L 24 - 32 04/02/2018 [facility] CHEM PANEL Calcium Lvl 9.4 mg/dL 8.5 - 10.5 04/02/2018 [facility] CHEM PANEL Phosphorus 3.0 mg/dL 2.5 - 4.5 04/02/2018 [facility] CHEM PANEL Albumin Lvl 3.9 g/dL 3.5 - 5.0 04/02/2018 [facility] CHEM PANEL Creatinine Lvl 1.02 mg/dL 0.50 - 1.40 04/02/2018 [facility] CHEM PANEL BUN 27 mg/dL 7 - 22 04/02/2018 [facility] CHEM PANEL Glucose Lvl 127 mg/dL 70 - 99 04/02/2018 [facility] CHEM PANEL Phosphorus 3.1 mg/dL 2.5 - 4.5 04/01/2018 [facility] CHEM PANEL Albumin Lvl 4.1 g/dL 3.5 - 5.0 04/01/2018 [facility] HEMATOLOGY Platelet 263 K/CMM 133 - 450 04/01/2018 [facility] HEMATOLOGY MPV 7.5 fL 7.4 - 10.4 04/01/2018 [facility] HEMATOLOGY RDW 17.6 % 11.5 - 14.5 04/01/2018 [facility] MCV 86.0 fL 80.0 - 98.0 04/01/2018 [facility] Hct 35.9 % 36.0 - 48.0 04/01/2018 [facility] HEMATOLOGY Hgb 12.0 g/dL 12.0 - 16.0 04/01/2018 [facility] HEMATOLOGY MCH 28.7 pg 27.0 - 31.0 04/01/2018 [facility] MCHC 33.4 g/dL 32.0 - 36.0 04/01/2018 [facility] HEMATOLOGY RBC 4.18 M/CMM 4.20 - 5.40 04/01/2018 [facility] HEMATOLOGY WBC 7.0 K/CMM 3.7 - 10.4 04/01/2018 [facility] HEMATOLOGY Basophils 0.8 % 0.0 - 1.0 04/01/2018 [facility] HEMATOLOGY Segs-Bands # 5.0 K/CMM 1.5 - 8.1 04/01/2018 [facility] Lymphocytes # 1.3 K/CMM 1.0 - 5.5 04/01/2018 [facility] Basophils # 0.1 K/CMM 0.0 - 0.2 04/01/2018 [facility] Monocytes # 0.5 K/CMM 0.0 - 0.8 04/01/2018 [facility] Monocytes 7.9 % 2.0 - 12.0 04/01/2018 [facility] Eosinophils 0.4 % 0.0 - 4.0 04/01/2018 [facility] Plt Morph Normal (04/01/18 8:24 AM) 04/01/2018 [facility] Segs 72.0 % 45.0 - 75.0 04/01/2018 [facility] Lymphocytes 18.9 % 20.0 - 40.0 04/01/2018 [facility] RBC Morph Normal (04/01/18 8:24 AM) 04/01/2018 [facility] Neck wo contrast MRA Neck wo contrast MRA Clinical Indication: - Further evaluation of carotid stenosis. Previous Carotid US 03/30/18 and Brain wo MRI 03/31/18. Fall from standing 2 days ago. History of MS. Comparison: None Technique: Magnetic resonance angiography of the neck was performed without gadolinium contrast with time of flight technique. 3-D maximum intensity projection images were obtained. FINDINGS: This study is degraded by patient motion with misregistration artifacts. The origins of the right brachiocephalic artery, right common carotid artery, right subclavian artery, right vertebral artery, left common carotid artery, left subclavian artery and left vertebral artery are widely patent. Bilateral common carotid arteries are widely patent. Bilateral internal carotid arteries and carotid bulb regions are patent without significant stenosis by NASCET criteria. Bilateral external carotid arteries are patent. Bilateral vertebral arteries are widely patent without stenosis. The visualized intracranial segments of the vertebral arteries are widely patent. The source images show no evidence of carotid or vertebral artery dissection. Any reported ICA stenoses directly reference the distal internal carotid diameter as the denominator for stenosis measurement. (NASCET criteria) IMPRESSION: Unremarkable MRA of the neck. No significant carotid arterial stenosis (50-69% narrowing demonstrated on the Doppler carotid ultrasound study cannot confirmed on the MRA.) By NASCET criteria. No significant vertebral artery stenosis. SL: NICOLE 03/31/2018 - - Read by: Sabas Crowley MD Dictated Date/time: 03/31/18 16:31 Electronically Signed by: Sabas Crowley MD 03/31/18 16:33 FINAL REPORT [facility] CHEM PANEL Phosphorus 3.7 mg/dL 2.5 - 4.5 03/31/2018 [facility] CHEM PANEL Albumin Lvl 3.4 g/dL 3.5 - 5.0 03/31/2018 [facility] HEMATOLOGY Eosinophils # 0.1 K/CMM 0.0 - 0.5 03/31/2018 [facility] Brain wo contrast MRI Brain wo contrast MRI Clinical Indication: - stroke , headaches Comparison: Noncontrast head CT 03/30/2018 TECHNIQUE: MRI of the brain is performed without gadolinium contrast with axial T1, T2, FLAIR and diffusion weighted imaging along with sagittal T2, and coronal T1 weighted imaging. FINDINGS: BRAIN PARENCHYMA: There is age-related generalized cortical atrophy. Patchy nonspecific periventricular and scattered punctate deep cerebral hemispheric white matter foci of increased T2 and FLAIR signal are seen, likely related to chronic microvascular ischemic disease. There is no mass effect or midline shift. There are no extra-axial fluid collection, or intraparenchymal hemorrhage. There is no magnetic susceptibility to suggest recent or remote intracranial hemorrhage. There is no diffusion weighted imaging or ADC map abnormality to suggest acute/subacute ischemia. CEREBELLOPONTINE REGIONS AND SKULL BASE: The cerebellopontine angles appear unremarkable. The skull base, craniocervical junction, and brainstem region are normal. The optic chiasm is normal. The sellar and pineal regions are unremarkable. VENTRICLES: No acute hydrocephalus. Basilar cisterns are patent. VESSELS: The expected intracranial flow voids are maintained. ORBITS, VISUALIZED PARANASAL SINUSES AND MASTOIDS: No acute abnormality of the visualized orbits or paranasal sinuses. The mastoid air cells are clear. IMPRESSION: 1. No magnetic resonance imaging evidence for acute intracranial process. 2. Generalized brain parenchymal atrophy with associated nonspecific white matter changes likely representing chronic microvascular ischemic disease. SL: JOCELYN 03/31/2018 - - Read by: Long Cancino MD Dictated Date/time: 03/31/18 03:20 Electronically Signed by: Long Cancino MD 03/31/18 03:21 FINAL REPORT [facility] ANEMIA STUDY Vitamin B12 Lvl 923 pg/mL 254 - 1320 03/30/2018 [facility] CHEM PANEL Ammonia 15.0 umol/L <=45.0 uMol/L 03/30/2018 [facility] LIPIDS CHD Risk 2.33 3.90 - 5.80 03/30/2018 [facility] LIPIDS HDL 52 mg/dL >=61 mg/dL 03/30/2018 [facility] LIPIDS Chol 121 mg/dL <=199 mg/dL 03/30/2018 [facility] LIPIDS VLDL 17 03/30/2018 [facility] LIPIDS LDL (Calculated) 52 mg/dL <=99 mg/dL 03/30/2018 [facility] LIPIDS Trig 87 mg/dL <=149 mg/dL 03/30/2018 [facility] SPECIAL CHEMISTRY Hgb A1C 5.0 % <=5.6 % 03/30/2018 [facility] URINE AND STOOL UA Hyal Cast 4 /LPF 0 - 2 03/30/2018 [facility] URINE AND STOOL UA Amorph Tanya Occasional /HPF None Seen /HPF 03/30/2018 [facility] URINE AND STOOL UA Renal Epi 1 /LPF <=0 /LPF 03/30/2018 [facility] URINE AND STOOL UA RBC 2 /HPF 0 - 2 03/30/2018 [facility] URINE AND STOOL UA WBC 21 /HPF 0 - 5 03/30/2018 [facility] URINE AND STOOL UA Sq Epi Occasional /LPF Few /LPF 03/30/2018 [facility] URINE AND STOOL UA Nitrite Negative (03/30/18 2:59 PM) Negative 03/30/2018 [facility] URINE AND STOOL UA Leuk Est Trace *ABN* (03/30/18 2:59 PM) Negative 03/30/2018 [facility] URINE AND STOOL UA Bili Negative *NA* (03/30/18 2:59 PM) Negative 03/30/2018 [facility] URINE AND STOOL UA Blood Negative (03/30/18 2:59 PM) Negative 03/30/2018 [facility] URINE AND STOOL UA Ketones Negative *NA* (03/30/18 2:59 PM) Negative 03/30/2018 [facility] URINE AND STOOL UA Urobilinogen 0.2 EU/dL 0.1 - 1.0 03/30/2018 [facility] URINE AND STOOL UA Glucose Negative (03/30/18 2:59 PM) Negative 03/30/2018 [facility] URINE AND STOOL UA pH 6.0 5.0 - 8.0 03/30/2018 [facility] URINE AND STOOL UA Protein Negative (6/25/18 2:59 PM) Negative 03/30/2018 [facility] URINE AND STOOL UA Spec Grav 1.010 <=1.030 03/30/2018 [facility] URINE AND STOOL UA Color Yellow *NA* (03/30/18 2:59 PM) Yellow 03/30/2018 [facility] URINE AND STOOL UA Turbidity Slight Cloudy (03/30/18 2:59 PM) Clear 03/30/2018 [facility] CARDIAC ENZYMES Troponin-I null 0.00 - 0.40 03/30/2018 [facility] CARDIAC ENZYMES Total CK 249 unit/L 12 - 191 03/30/2018 [facility] CHEM PANEL AST 27 unit/L 0 - 37 03/30/2018 [facility] CHEM PANEL ALT 20 unit/L 0 - 65 03/30/2018 [facility] CHEM PANEL Alk Phos 80 unit/L 39 - 136 03/30/2018 [facility] CHEM PANEL Bili Total 0.2 mg/dL 0.2 - 1.3 03/30/2018 [facility] CHEM PANEL Total Protein 7.6 g/dL 6.4 - 8.4 03/30/2018 [facility] CHEM PANEL Globulin 3.8 g/dL 2.7 - 4.2 03/30/2018 [facility] CHEM PANEL A/G Ratio 1.0 0.7 - 1.6 03/30/2018 [facility] CHEM PANEL B/C Ratio 21 6 - 25 03/30/2018 [facility] HEMATOLOGY Plt Morph Normal (03/30/18 2:41 PM) 03/30/2018 [facility] HEMATOLOGY RBC Morph Normal (03/30/18 2:41 PM) 03/30/2018 [facility] HEMATOLOGY Atypical Lymphs 0.0 % <=0.0 % 03/30/2018 [facility] HEMATOLOGY Bands 0.0 % 0.0 - 11.0 03/30/2018 [facility] HEMATOLOGY Tot Cell Ct 100 03/30/2018 [facility] Carotid artery Doppler bilat US Carotid artery Doppler bilat US EXAM: Ultrasound carotid HISTORY: Stroke COMPARISON: None TECHNIQUE: Catherine-scale, color Doppler and spectral Doppler of the carotid arteries was performed. Any reported ICA stenoses indirectly reference the distal internal carotid diameter as the denominator for the stenosis measurement, utilizing consensus panel criteria. FINDINGS: RIGHT: Moderate - marked plaque proximal internal carotid artery ICA PSV 158 cm/sec CCA PSV 148 cm/sec ICA/CCA ratio 0.9 Vertebral flow is antegrade. External carotid artery is patent. LEFT: Moderate-marked plaque proximal internal carotid artery ICA PSV 153 cm/sec CCA PSV 129 cm/sec ICA/CCA ratio 0.8 Vertebral flow is antegrade. External carotid artery is patent. IMPRESSION: 50-69% stenoses of the right and left common carotid and internal carotid arteries by velocity criteria. SL: [id number] 03/30/2018 - - Read by: Rolan Gutierrez MD Dictated Date/time: 03/30/18 19:14 Electronically Signed by: Rolan Gutierrez MD 03/30/18 19:16 FINAL REPORT [facility] Brain contrast CT Brain wo contrast CT Clinical Indication: Fall. Comparison: Brain CT 03/28/2016 TECHNIQUE: CT images were obtained from the foramen magnum to the vertex without the use of intravenous contrast on a multidetector CT. Axial, coronal and sagittal reformats created. Total exam DLP: 981.84 mGy-cm. DLP means dose length product, a radiation dose metric that does not report individual patient dose, but is a reference value related to the radiation output of the scanner used for this exam. FINDINGS: Calvarium and scalp: No acute fracture, or scalp hematoma. Ventricles and sulci: Mild cerebral volume loss. No hydrocephalus. Extra-axial spaces: No acute extra axial hemorrhage, fluid collection or mass effect. BRAIN PARENCHYMA: No acute parenchymal hemorrhage, or large vascular territory infarction. There are scattered areas of hypoattenuation in the supratentorial white matter, which are nonspecific, but likely represent minimal/mild microvascular ischemic changes. There is no mass effect, midline shift or edema. Paranasal sinuses and mastoid air cells: Prior functional endoscopic surgery. Paranasal sinuses are unremarkable. The mastoid air cells are clear. Partially imaged anterior cervical fusion. If there is further concern for intracranial pathology or acute stroke, MRI of the brain may be performed for complete assessment. IMPRESSION: No acute intracranial hemorrhage, mass effect or large vascular territory infarction. SL: [id number] 03/30/2018 - - Read by: Scott Ho MD Dictated Date/time: 03/30/18 12:19 Electronically Signed by: Scott Ho MD 03/30/18 12:22 FINAL REPORT [facility] Spine cervical wo contrast CT Spine cervical wo contrast CT Study: Spine cervical wo contrast CT Clinical Indication: Neck pain post fall Comparison: None Technique: Multiple axial CT images of the cervical spine were performed without the administration of intravenous contrast. Coronal and sagittal reconstructions were obtained. CT Radiation Dose DLP 593.27 mGy-cm FINDINGS: Grade 2 anterolisthesis of C7 over T2 by 7 mm is noted. No acute bony fracture is seen. Stable changes of multilevel ACDF of the cervical spine from C4 through T1 are again noted. New changes of cerclage wiring as well as posterior instrumentation for fusion of the right posterior elements at C7-T1 are noted. There is new obliquely oriented lucency traversing the right transverse processes of C7 and T1, suspicious for subacute to chronic, ununited fractures. Mild to moderate degenerative disc disease in the upper cervical spine is seen. Advanced facet arthrosis throughout cervical spine is present. Mild to moderate bilateral neural foraminal narrowing at C3-C4 is seen. Moderate right neural foraminal narrowing at C4-C5 is seen. Severe left neural foraminal narrowing at C5-C6 is present. Moderate-severe bilateral neural foraminal narrowing at C6-C7 is seen. Paravertebral soft tissues are unremarkable. The lung apices are clear. IMPRESSION: 1. No acute bony abnormality of the cervical spine. 2. Multilevel postoperative changes of the cervical spine. 3. Subacute to chronic appearing ununited fractures of the right C7 and T1 transverse processes. SL: [id number] 03/30/2018 - - Read by: Norris Kincaid MD Dictated Date/time: 03/30/18 12:01 Electronically Signed by: Norris Kincaid MD 03/30/18 12:06 FINAL REPORT [facility] Pelvis AP DX Pelvis AP DX Clinical Indication: - s/p fall; Comparison: None FINDINGS: AP radiograph of the pelvis was obtained. The study is limited by osteopenia. No acute fracture or dislocation is identified. The pelvic and obturator rings are intact. The pubic rami are intact. The symphysis pubis and sacroiliac joints are unremarkable. The visualized sacral foramina are unremarkable. Large amount of dense fecal material is present in the right colon. IMPRESSION: 1. No acute fracture or dislocation of the pelvis. 2. Large amount of dense fecal material in the right colon, indicating constipation. SL: [id number] 03/30/2018 - - Read by: Ludwin Greenberg MD Dictated Date/time: 03/30/18 11:08 Electronically Signed by: Ludwin Greenberg MD 03/30/18 11:09 FINAL REPORT [facility] Chest 1view DX Chest 1view DX Clinical Indication:67 years Female with - fall Comparison: Chest x-ray 08/04/2017 FINDINGS: Lines: None. The single frontal chest radiograph shows normal lung volumes. No interstitial or airspace opacities. Mild right perihilar scarring. No pleural effusion. No pneumothorax. Cardiac silhouette is normal. Pulmonary vasculature is normal. The trachea is midline. There are no acute osseous abnormalities noted. Cervical spine fusion hardware. Lumbar spine DEXA scoliosis partially visualized. IMPRESSION: No acute cardiopulmonary abnormality. 03/30/2018 - - Read by: Kenn Thibodeaux MD Dictated Date/time: 03/30/18 11:09 Electronically Signed by: Kenn Thibodeaux MD 03/30/18 11:10 FINAL REPORT [facility] Pelvis Complete US Pelvis Complete US EXAM: US PELVIS TRANSABDOMINAL DATE: 12/16/2017 12:59 PM CDT INDICATION: R10.2 Pelvic and perineal pain. Left lower quadrant pain around the area of previous hernia repair. ADDITIONAL INFORMATION: LMP: ; History of section surgeries and of multiple bladder appears. COMPARISON: 04/01/2012.. TECHNIQUE: Multiplanar grayscale and color Doppler ultrasound images of the pelvis were obtained transabdominally through a distended urinary bladder. FINDINGS: Uterus: Orientation: Anteverted Size: 4.3 x 1.7 x 2.1 cm. The uterus is partially obscured by bowel gas. Masses: None. Cervix: Normal. Endometrium: Not visualized on transabdominal imaging. Bilateral ovaries: Not visualized sonographically at this time. Adnexa: No adnexal masses or fluid collections are seen. Free fluid: None. Other findings: None. IMPRESSION: 1. Limited transabdominal pelvic ultrasound. 2. The uterus is small in size with no gross abnormalities. Portions of the uterus are obscured by overlying bowel gas. 3. The endometrium is not evaluated as it is not visualized. If endometrial evaluation is warranted, endovaginal imaging would be recommended. 12/16/2017 - - Read by: Jas Rodríguez MD Dictated Date/time: 12/16/17 14:32 Electronically Signed by: Jas Rodríguez MD 12/16/17 14:41 FINAL REPORT [facility] Spine cervical series DX Spine cervical series DX EXAMINATION: Cervical spine - AP, lateral neutral, lateral flexion, lateral extension HISTORY: Cervical spondylosis FINDINGS: Frontal, lateral neutral, lateral flexion, and lateral extension views of the cervical spine are performed and compared to 05/26/2012. Anterior cervical discectomy and fusion procedure from C4 through T1 is demonstrated transfixed with an anterior surgical plate and multiple screws from C4 through C5 and from C7 through T1 is solid osseous fusion from C5 through C7. There are also postoperative changes of instrumented posterior spinal fusion procedure at C7-T1 transfixed with a right-sided vertical shin and right-sided lateral mass screws, as well as, interspinous bone graft between the spinous processes of C7 and T1 transfixed with cerclage wire. There is a fracture of the C7 spinous process. 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 Flexion-extension views demonstrate no evidence of angular excursion at the levels of fusion procedure. IMPRESSION: 1. Anterior cervical discectomy and fusion procedure from C4 through T1 with instrumentation as described above. 2. Postoperative changes from instrumented posterior spinal fusion procedure at C7-T1 with instrumentation as described above. THERE IS A FRACTURE OF THE C7 SPINOUS PROCESS. 3. No evidence of angular excursion at the levels of fusion procedure on flexion- extension views. 10/03/2017 - - Read by: Roosevelt Werner MD Dictated Date/time: 10/03/17 18:31 Electronically Signed by: Roosevelt Werner MD 10/03/17 18:37 FINAL REPORT [facility] CHEM PANEL Lactic Acid Lvl 1.0 mMol/L 0.5 - 2.2 08/04/2017 [facility] ELECTROLYTES AGAP 11.7 meq/L 10.0 - 20.0 08/04/2017 [facility] ELECTROLYTES B/C Ratio 17 6 - 25 08/04/2017 [facility] ELECTROLYTES Globulin 6.4 g/dL 2.7 - 4.2 08/04/2017 [facility] ELECTROLYTES A/G Ratio 0.6 0.7 - 1.6 08/04/2017 [facility] ELECTROLYTES eGFR 53 mL/min/1.73m2 08/04/2017 Result Comment: The eGFR is calculated using the CKD-EPI formula. In most young, healthy individuals the eGFR will be >90 mL/min/1.73m2. The eGFR declines with age. An eGFR of 60-89 may be normal in some populations, particularly the elderly, for whom the CKD-EPI formula has not been extensively validated. Use of the eGFR is not recommended in the following populations: Individuals with unstable creatinine concentrations, including patients and those with serious co-morbid conditions. Patients with extremes in muscle mass or diet. The data above are obtained from the National Kidney Disease Education Program (NKDEP) which additionally recommends that when the eGFR is used in patients with extremes of body mass index for purposes of drug dosing, the eGFR should be multiplied by the estimated BMI. [facility] ELECTROLYTES Bili Total 0.4 mg/dL 0.2 - 1.3 08/04/2017 [facility] ELECTROLYTES Sodium Lvl 136 meq/L 135 - 145 08/04/2017 [facility] ELECTROLYTES BUN 19 mg/dL 7 - 22 08/04/2017 [facility] ELECTROLYTES Creatinine Lvl 1.09 mg/dL 0.50 - 1.40 08/04/2017 [facility] ELECTROLYTES Calcium Lvl 9.8 mg/dL 8.5 - 10.5 08/04/2017 [facility] ELECTROLYTES Total Protein 10.3 g/dL 6.4 - 8.4 08/04/2017 [facility] ELECTROLYTES CO2 26 meq/L 24 - 32 08/04/2017 [facility] ELECTROLYTES Potassium Lvl 4.7 meq/L 3.5 - 5.1 08/04/2017 Result Comment: specimen moderately hemolyzed [facility] ELECTROLYTES Chloride Lvl 103 meq/L 95 - 109 08/04/2017 [facility] ELECTROLYTES Alk Phos 94 unit/L 39 - 136 08/04/2017 [facility] ELECTROLYTES Albumin Lvl 3.9 g/dL 3.5 - 5.0 08/04/2017 [facility] ELECTROLYTES ALT 11 unit/L 0 - 65 08/04/2017 [facility] ELECTROLYTES AST 22 unit/L 0 - 37 08/04/2017 [facility] ELECTROLYTES Glucose Lvl 103 mg/dL 70 - 99 08/04/2017 [facility] HEMATOLOGY Segs 52.8 % 45.0 - 75.0 08/04/2017 [facility] HEMATOLOGY Basophils # 0.1 K/CMM 0.0 - 0.2 08/04/2017 [facility] HEMATOLOGY Segs-Bands # 3.7 K/CMM 1.5 - 8.1 08/04/2017 [facility] HEMATOLOGY Basophils 1.4 % 0.0 - 1.0 08/04/2017 [facility] HEMATOLOGY Monocytes # 0.7 K/CMM 0.0 - 0.8 08/04/2017 [facility] Lymphocytes # 2.3 K/CMM 1.0 - 5.5 08/04/2017 [facility] Eosinophils # 0.2 K/CMM 0.0 - 0.5 08/04/2017 [facility] Monocytes 9.6 % 2.0 - 12.0 08/04/2017 [facility] Lymphocytes 32.7 % 20.0 - 40.0 08/04/2017 [facility] Eosinophils 3.5 % 0.0 - 4.0 08/04/2017 [facility] MCH 28.3 pg 27.0 - 31.0 08/04/2017 [facility] MCV 89.1 fL 80.0 - 98.0 08/04/2017 [facility] Hct 34.6 % 36.0 - 48.0 08/04/2017 [facility] WBC 6.9 K/CMM 3.7 - 10.4 08/04/2017 [facility] RBC 3.88 M/CMM 4.20 - 5.40 08/04/2017 [facility] Hgb 11.0 g/dL 12.0 - 16.0 08/04/2017 [facility] RDW 16.7 % 11.5 - 14.5 08/04/2017 [facility] MPV 7.3 fL 7.4 - 10.4 08/04/2017 [facility] MCHC 31.8 g/dL 32.0 - 36.0 08/04/2017 [facility] Platelet 340 K/CMM 133 - 450 08/04/2017 [facility] Ext Upper Arterial Unilat Doppler US Ext Upper Arterial Unilat Doppler US RIGHT UPPER EXTREMITY ARTERIAL DOPPLER ULTRASOUND HISTORY: Right upper extremity pain; COMPARISON: None available. TECHNIQUE: The right upper extremity was evaluated from neck base to wrist utilizing high-resolution color duplex sonography. Spectral waveform was also obtained. FINDINGS Grayscale: No significant atherosclerotic changes are evident. No arterial occlusion or focal stenosis is seen. Color flow imaging with Doppler: No significant focal stenosis is identified. Spectral Doppler reveals multiphasic waveforms diffusely throughout the arterial vasculature. Peak systolic velocity measurements are as follows (cm/s). CCA: 107 Subclavian: 131 Axillary: 70 Proximal brachial: 82 Mid brachial: 94 Distal brachial: 101 Radial: 48 Ulnar: 45 IMPRESSION: Normal study SL: SOREN 08/04/2017 - - Read by: Almas Goss MD Dictated Date/time: 08/04/17 09:54 Electronically Signed by: Almas Goss MD 08/04/17 09:59 FINAL REPORT [facility] Ext Upper Venous Doppler Unilat US Ext Upper Venous Doppler Unilat US Patient Name: CORDELIA DOWLING : 1950; Age: 66 years Female MR: [id number] Study: Ext Upper Venous Doppler Unilat US 08/04/2017 6:23 AM CDT CLINICAL INDICATION: - RUE pain COMPARISON: None TECHNIQUE: Sonographic evaulation of the right upper extremity veins was performed using high resolution B-mode imaging, along with pulse and color Doppler imaging. FINDINGS: RIGHT UPPER EXTREMITY: The internal jugular vein, subclavian vein, axillary vein, brachial vein, radial and ulnar veins are patent. There is no echogenic debris to suggest deep venous thrombosis. The basilic and cephalic veins are patent. IMPRESSION: No evidence of deep venous thrombosis within the right upper extremity. SL: [id number] 08/04/2017 - - Read by: Alcon Finn MD Dictated Date/time: 08/04/17 09:40 Electronically Signed by: Alcon Finn MD 08/04/17 09:43 FINAL REPORT [facility] Knee 3 views DX Knee 3 views DX Patient Name: CORDELIA DOWLING : 1950; Age: 66 years Female MR: [id number] Study: Knee 3 views DX 08/04/2017 8:08 AM CDT CLINICAL INDICATION: - fall COMPARISON: None FINDINGS: Views and laterality: Left knee 3 views No displaced fracture or dislocation. The tibiofemoral and patellofemoral compartments are intact. No gross soft tissue abnormalities. IMPRESSION: No acute bony abnormalities. SL: [id number] 08/04/2017 - - Read by: Alcon Finn MD Dictated Date/time: 08/04/17 08:30 Electronically Signed by: Alcon Finn MD 08/04/17 08:31 FINAL REPORT [facility] Spine cervical wo contrast CT Spine cervical wo contrast CT Patient Name: CORDELIA DOWLING : 1950; Age: 66 years Female MR: [id number] Study: Spine cervical wo contrast CT 08/04/2017 6:22 AM CDT CLINICAL INDICATION: dlp: 760.01; CAM - neck pain, worse, hx of surgery; Pt reports right shoulder / neck pain for the past couple months. Pt denies trauma. No distress noted at this time . COMPARISON: None TECHNIQUE: Multidetector CT imaging of the cervical spine without IV contrast. Coronal and sagittal reconstructions were generated and reviewed. FINDINGS: ALIGNMENT AND GENERAL ASSESSMENT: Status post anterior fusion of C4-C5 and the C7-T1. There is also bony fusion of C5-C6 and C6-C7. No acute fracture. Mild grade 1 anterolisthesis of C7 on T1. The craniocervical junction is normal. The atlanto-dental alignment appears normal. The posterior elements and spinous processes are intact. The facet joint, spinolaminar and spinous process alignment are intact. DISC SPACES AND SOFT TISSUES: The prevertebral soft tissues are normal. Mild bilateral facet arthropathy at C3-C4. Moderate left facet arthropathy at C4-C5 and C5-C6. No evidence of significant canal stenosis. MRI is the gold standard to assess for disc disease. CT myelogram or MRI of the cervical spine may be performed, if there is further concern. IMPRESSION: No acute cervical spine abnormalities. SL: [id number] 08/04/2017 - - Read by: Alcon Finn MD Dictated Date/time: 08/04/17 08:08 Electronically Signed by: Alcon Finn MD 08/04/17 08:17 FINAL REPORT [facility] Chest 1view DX Chest 1view DX CHEST FRONTAL VIEW. 08/04/2017 0717 hours HISTORY: Right shoulder pain.. COMPARISON: 09/25/2016. Correlation with shoulder views performed the same day. FINDINGS: Heart size is within normal limits. Pulmonary vasculature appears within normal limits. No focal infiltrates or effusions identified. Skin folds are evident. No pneumothorax seen. No acute osseous abnormality identified. IMPRESSION: 1. No evidence for acute cardiopulmonary disease. SL: [id number] 08/04/2017 - - Read by: Jitendra Manzo MD Dictated Date/time: 08/04/17 07:29 Electronically Signed by: Jitendra Manzo MD 08/04/17 07:31 FINAL REPORT [facility] Shoulder series DX Shoulder series DX Right shoulder 3 views HISTORY: Pain. COMPARISON: Correlation with chest x-ray performed the same day. FINDINGS: Degenerative changes evident with no acute fracture or dislocation. Joint spaces within normal limits. Right lung clear. IMPRESSION: 1. No acute findings. 2. Mild degenerative changes. SL: [id number] 08/04/2017 - - Read by: Jitendra Manzo MD Dictated Date/time: 08/04/17 07:27 Electronically Signed by: Jitendra Manzo MD 08/04/17 07:29 FINAL REPORT [facility] Spine Thoracic w/wo contrast MRI Spine Thoracic w/wo contrast MRI EXAM: SPINE THORACIC WO AND WITH CONTRAST MRI DATE:- 04/17/2017 1:46 PM CDT . CLINICAL INDICATION: Thoracic spine pain TECHNIQUE: Multiplanar, multisequence MRI thoracic spine with prior to and after uncomplicated IV administration of 15 mL Dotarem contrast COMPARISON: Same-day cervical spine magnetic resonance imaging FINDINGS: There is mild anterior superior endplate wedging at T1 with 2 mm retropulsion. There is edema in an enhancement in the vertebral body. The remaining thoracic vertebral bodies have normal height and shape. There is. There is no worrisome marrow signal abnormality. 2. Paravertebral soft tissue signals are normal. INTERVERTEBRAL DISC SPACES, SPINAL CANAL, AND NEURAL FORAMINA: C7-T1: Retropulsed T1 superior endplate indents the thecal sac and flattens the ventral cord contour. Central canal measures 7 mm. T10-T11: The disc is dehydrated with 2 mm central and right subarticular zone disc protrusion. There is right greater than left facet hypertrophy. Central canal measures 10 mm. Neural foramina are patent. T11-T12: The discs is dehydrated with diffuse disc bulge. There is mild bilateral facet hypertrophy. Central canal measures 11 mm. Neural foramina are patent. Aside from desiccation, the remaining disc levels are unremarkable. IMPRESSION: 1. Severe C7-T1 spinal stenosis with mass effect on the spinal cord. 2. T1, likely subacute compression deformity with associated marrow edema and enhancement 04/17/2017 - - Read by: Keanu Aguilar MD Dictated Date/time: 04/17/17 16:53 Electronically Signed by: Keanu Aguilar MD 04/17/17 17:11 FINAL REPORT [facility] Spine cervical w/wo contrast MRI Spine cervical w/wo contrast MRI CERVICAL SPINE MRI WITH AND WITHOUT CONTRAST. Indication:66 years Female G35 Multiple sclerosis - Multiple Sclerosis . Cervicalgia. Pain. TECHNIQUE: Sagittal T1, sagittal T2, and axial T2 precontrast images were obtained. Post-contrast sagittal T1 and axial T1 images were obtained. Comparison: 08/20/2012 FINDINGS: There is no syrinx. The cerebellar tonsils are normal in position above the level of the foramen magnum. There has been interval removal of the C5-C7 ACDF hardware with interval placement of C4-C5 ACDF hardware. There is interval grade 2 anterior listhesis of C7 on T1 measuring 6 mm with moderate type I (fibrovascular or edematous) endplate changes. There is minimal enhancement of the disc so that discitis cannot be excluded. There is apparent remodeling of the T1 vertebral body with slight anterior wedge deformity so that trauma cannot be excluded. There is also slight enhancement of the C3 vertebral body though this may be related to metallic artifact, as there is no additional changes on the precontrast images. 3 mm C2-C3 retrolisthesis. The remaining intervertebral disks are desiccated with severe height loss at C7-T1. C2-C3: 3 mm midline disc protrusion exaggerated by the retrolisthesis with mild uncovertebral and moderate facet hypertrophy. This results in moderate right neural foraminal narrowing. Along with ligamentum flavum thickening there is mild canal stenosis. C3-C4: Moderate disc osteophyte complexes with possible midline disc protrusion measuring 4 mm, mild uncovertebral and moderate facet hypertrophy. This results in moderate left and mild right neural foraminal narrowing deformity of the left greater than right C4 nerve roots. Along with moderate ligamentum flavum thickening, there is mild to moderate canal stenosis. C4-C5: Residual moderate right greater than left uncovertebral mild facet hypertrophy. This results in severe right and mild left neural foraminal narrowing with compression of the right C5 nerve root. C5-C6: Residual moderate left greater than right neural foraminal foraminal narrowing related to uncovertebral greater than facet hypertrophy with deformity of the left greater than right C6 nerve roots. C6-C7: Mild disc osteophyte complexes with moderate uncovertebral and facet hypertrophy resulting in severe bilateral neural foraminal narrowing with compression of the C7 nerve roots. C7-T1: Moderate disc osteophyte complex is exaggerated by the anterior listhesis with moderate uncovertebral and facet hypertrophy and moderate ligamentum flavum thickening. This results in moderate to severe canal stenosis (AP diameter 6 mm) with slight focal cord edema. Severe bilateral neural foraminal narrowing with compression of the C8 nerve roots. IMPRESSION: 1. Grade 2 anterior listhesis of C7 on T1 below the fusion level with moderate to severe canal stenosis and focal cord edema. 2. T2 hyperintensity of the endplates at C7-T1 and slightly the disc are probably degenerative in nature (type I). However, an indolent infection (such as Propionibacterium) cannot be excluded. Consider correlation with white blood cell count, C-reactive protein, and sedimentation rate. 3. Anterior wedge deformity of the T1 vertebral body is possibly related to the degenerative change though an acute to subacute superior endplate fracture cannot be excluded. CT may be useful in evaluation. 4. Postoperative and degenerative changes otherwise as detailed above including multilevel foraminal stenoses with deformity or compression of the majority of mid to lower cervical nerve roots. Multilevel disc herniations. Other areas of mild canal stenosis in the upper cervical spine. 5. No additional focal findings of the cord to suggest demyelinating plaques. Critical findings discussed with Dr. Hooks at 04/17/2017 4:42 PM CDT 04/17/2017 - - Read by: Lai Ordoñez MD Dictated Date/time: 04/17/17 16:17 Electronically Signed by: Lai Ordoñez MD 04/17/17 16:52 FINAL REPORT [facility] Bone Density [employer] MA Bone Density [employer] MA - Bone Density [employer] MA BONE DENSITY EVALUATION: 10/18/2016 CLINICAL DATA: Post menopausal. RISK FACTORS: race. FINDINGS: Bone density evaluation was performed 10/18/2016 on the AP L2-L3 region of spine using a Hologic unit. The BMD average for the exam is 1.159 g/cm2. The T-score is 0.90 and the Z-score is 2.80. This matches the World Health Organization's criteria for normal bone density and places the patient within normal limits of fracture risk. An additional bone density evaluation was performed 10/18/2016 on the right femur neck using a Hologic unit. The BMD average for the exam is 0.533 g/cm2. The T-score is -2.90 and the Z-score is -1.30. This matches the World Health Organization's criteria for osteoporosis and places the patient at a high risk for fracture. An additional bone density evaluation was performed 10/18/2016 on the right hip using a Hologic unit. The BMD average for the exam is 0.584 g/cm2. The T-score is -2.90 and the Z-score is -1.70. This matches the World Health Organization's criteria for osteoporosis and places the patient at a high risk for fracture. An additional bone density evaluation was performed 10/18/2016 on the left femur neck using a Hologic unit. The BMD average for the exam is 0.578 g/cm2. The T- score is -2.40 and the Z-score is -0.90. This matches the World Health Organization's criteria for osteopenia and places the patient at a medium risk for fracture. An additional bone density evaluation was performed 10/18/2016 on the left hip using a Hologic unit. The BMD average for the exam is 0.682 g/cm2. The T-score is -2.10 and the Z-score is -0.80. This matches the World Health Organization's criteria for osteopenia and places the patient at a medium risk for fracture. IMPRESSION: OSTEOPENIA Patient is at medium risk for fracture. Professional services are provided by the [facility]. This exam was dictated and interpreted by [id number] for KEMAR Molina M.D., cm/kenzie:10/18/2016 16:22:10 Profile Grinder Technician: Virgen REARDON)(Adrien), [facility] 10/18/2016 - - Read by: Frandy Sanabria MD Dictated Date/time: 10/18/16 16:22 Electronically Signed by: Frandy Sanabria MD 10/18/16 16:22 FINAL REPORT [facility] Ch[facility] Digital Mammo Screening [facility]ias MA Digital Mammo Screening [facility]ias MA - DIGITAL MAMMO SCREENING MATIAS MA BILATERAL DIGITAL SCREENING MAMMOGRAM WITH CAD: 10/18/2016 CLINICAL: Screening. Current study was evaluated with a Computer Aided Detection (CAD) system. No prior exams were available for comparison. There are scattered fibroglandular densities in both breasts. The patient was very difficult to position, these are the best films possible. There are benign appearing calcifications and an intramammary node in both breasts. No significant masses, calcifications, or other findings are seen in either breast. IMPRESSION: BENIGN There is no mammographic evidence of malignancy. A 1 year screening mammogram is recommended. Professional services are provided by the [facility]. Vel Molina M.D., cm/temirad:10/22/2016 12:47:03 Profile Grinder Technician: Janey Garrido [facility] This exam was dictated and interpreted by [id number] for EDWIN Moore 15. letter sent: Normal exam Mammogram BI-RADS: 2 Benign 10/18/2016 - - Read by: Frandy Sanabria MD Dictated Date/time: 10/22/16 12:47 Electronically Signed by: Frandy Sanabria MD 10/22/16 12:47 FINAL REPORT [facility] Chest 2 views DX Chest 2 views DX EXAM: Chest 2 views DX HISTORY: cough COMPARISON: 03/28/2016 Increased interstitial densities are present in the lung bases, in keeping with findings seen on prior chest CT from 07/11/2016. There is no new abnormality, effusion or pneumothorax. Heart size is normal. IMPRESSION: Chronic interstitial changes in the lung bases. 09/25/2016 - - Read by: Luna Rivera MD Dictated Date/time: 09/25/16 15:16 Electronically Signed by: Luna Rivera MD 09/25/16 15:17 FINAL REPORT [facility] CHEM PANEL Bili Total 0.3 mg/dL 0.2 - 1.3 07/16/2016 [facility] CHEM PANEL AGAP 13.1 meq/L 10.0 - 20.0 07/16/2016 [facility] CHEM PANEL B/C Ratio 8 6 - 25 07/16/2016 [facility] CHEM PANEL Globulin 3.6 g/dL 2.7 - 4.2 07/16/2016 [facility] CHEM PANEL A/G Ratio 0.6 0.7 - 1.6 07/16/2016 [facility] CHEM PANEL eGFR 94 mL/min/1.73m2 07/16/2016 Result Comment: The eGFR is calculated using the CKD-EPI formula. In most young, healthy individuals the eGFR will be >90 mL/min/1.73m2. The eGFR declines with age. An eGFR of 60-89 may be normal in some populations, particularly the elderly, for whom the CKD-EPI formula has not been extensively validated. Use of the eGFR is not recommended in the following populations: Individuals with unstable creatinine concentrations, including patients and those with serious co-morbid conditions. Patients with extremes in muscle mass or diet. The data above are obtained from the National Kidney Disease Education Program (NKDEP) which additionally recommends that when the eGFR is used in patients with extremes of body mass index for purposes of drug dosing, the eGFR should be multiplied by the estimated BMI. [facility] CHEM PANEL Total Protein 5.9 g/dL 6.4 - 8.4 07/16/2016 [facility] CHEM PANEL Calcium Lvl 7.9 mg/dL 8.5 - 10.5 07/16/2016 [facility] CHEM PANEL Albumin Lvl 2.3 g/dL 3.5 - 5.0 07/16/2016 [facility] CHEM PANEL AST 18 unit/L 0 - 37 07/16/2016 [facility] CHEM PANEL Alk Phos 76 unit/L 39 - 136 07/16/2016 [facility] CHEM PANEL ALT 7 unit/L 0 - 65 07/16/2016 [facility] CHEM PANEL BUN 5 mg/dL 7 - 22 07/16/2016 [facility] CHEM PANEL Glucose Lvl 119 mg/dL 70 - 99 07/16/2016 [facility] CHEM PANEL Potassium Lvl 4.1 meq/L 3.5 - 5.1 07/16/2016 [facility] CHEM PANEL Sodium Lvl 136 meq/L 135 - 145 07/16/2016 [facility] CHEM PANEL Chloride Lvl 101 meq/L 95 - 109 07/16/2016 [facility] CHEM PANEL CO2 26 meq/L 24 - 32 07/16/2016 [facility] CHEM PANEL Creatinine Lvl 0.63 mg/dL 0.50 - 1.40 07/16/2016 [facility] HEMATOLOGY MPV 7.8 fL 7.4 - 10.4 07/16/2016 [facility] HEMATOLOGY MCHC 33.5 g/dL 32.0 - 36.0 07/16/2016 [facility] HEMATOLOGY RDW 15.1 % 11.5 - 14.5 07/16/2016 [facility] HEMATOLOGY Platelet 245 K/CMM 133 - 450 07/16/2016 [facility] Hgb 8.8 g/dL 12.0 - 16.0 07/16/2016 [facility] Hct 26.2 % 36.0 - 48.0 07/16/2016 [facility] HEMATOLOGY MCV 83.0 fL 80.0 - 98.0 07/16/2016 [facility] HEMATOLOGY MCH 27.8 pg 27.0 - 31.0 07/16/2016 [facility] HEMATOLOGY WBC 6.6 K/CMM 3.7 - 10.4 07/16/2016 [facility] HEMATOLOGY RBC 3.16 M/CMM 4.20 - 5.40 07/16/2016 [facility] CHEM PANEL Lipase Lvl 145 unit/L 73 - 393 07/14/2016 [facility] CHEM PANEL Amylase Lvl 50 unit/L 25 - 115 07/14/2016 [facility] CHEM PANEL A/G Ratio 0.6 0.7 - 1.6 07/14/2016 [facility] CHEM PANEL Globulin 3.8 g/dL 2.7 - 4.2 07/14/2016 [facility] CHEM PANEL B/C Ratio 9 6 - 25 07/14/2016 [facility] CHEM PANEL AGAP 8.7 meq/L 10.0 - 20.0 07/14/2016 [facility] CHEM PANEL eGFR 93 mL/min/1.73m2 07/14/2016 Result Comment: The eGFR is calculated using the CKD-EPI formula. In most young, healthy individuals the eGFR will be >90 mL/min/1.73m2. The eGFR declines with age. An eGFR of 60-89 may be normal in some populations, particularly the elderly, for whom the CKD-EPI formula has not been extensively validated. Use of the eGFR is not recommended in the following populations: Individuals with unstable creatinine concentrations, including patients and those with serious co-morbid conditions. Patients with extremes in muscle mass or diet. The data above are obtained from the National Kidney Disease Education Program (NKDEP) which additionally recommends that when the eGFR is used in patients with extremes of body mass index for purposes of drug dosing, the eGFR should be multiplied by the estimated BMI. [facility] CHEM PANEL Alk Phos 83 unit/L 39 - 136 07/14/2016 [facility] CHEM PANEL Bili Total 0.5 mg/dL 0.2 - 1.3 07/14/2016 [facility] CHEM PANEL AST 11 unit/L 0 - 37 07/14/2016 [facility] CHEM PANEL ALT 7 unit/L 0 - 65 07/14/2016 [facility] CHEM PANEL Albumin Lvl 2.4 g/dL 3.5 - 5.0 07/14/2016 [facility] CHEM PANEL Total Protein 6.2 g/dL 6.4 - 8.4 07/14/2016 [facility] CHEM PANEL Calcium Lvl 8.1 mg/dL 8.5 - 10.5 07/14/2016 [facility] CHEM PANEL CO2 29 meq/L 24 - 32 07/14/2016 [facility] CHEM PANEL Chloride Lvl 103 meq/L 95 - 109 07/14/2016 [facility] CHEM PANEL Sodium Lvl 137 meq/L 135 - 145 07/14/2016 [facility] CHEM PANEL Creatinine Lvl 0.65 mg/dL 0.50 - 1.40 07/14/2016 [facility] CHEM PANEL BUN 6 mg/dL 7 - 22 07/14/2016 [facility] CHEM PANEL Potassium Lvl 3.7 meq/L 3.5 - 5.1 07/14/2016 [facility] CHEM PANEL Glucose Lvl 99 mg/dL 70 - 99 07/14/2016 [facility] HEMATOLOGY Segs 69.6 % 45.0 - 75.0 07/14/2016 [facility] HEMATOLOGY Monocytes # 0.9 K/CMM 0.0 - 0.8 07/14/2016 [facility] HEMATOLOGY Lymphocytes # 1.2 K/CMM 1.0 - 5.5 07/14/2016 [facility] HEMATOLOGY Eosinophils # 0.3 K/CMM 0.0 - 0.5 07/14/2016 [facility] HEMATOLOGY Basophils 0.5 % 0.0 - 1.0 07/14/2016 [facility] HEMATOLOGY Segs-Bands # 5.5 K/CMM 1.5 - 8.1 07/14/2016 [facility] HEMATOLOGY Lymphocytes 15.4 % 20.0 - 40.0 07/14/2016 [facility] HEMATOLOGY Eosinophils 3.3 % 0.0 - 4.0 07/14/2016 [facility] HEMATOLOGY Monocytes 11.2 % 2.0 - 12.0 07/14/2016 [facility] HEMATOLOGY MPV 7.6 fL 7.4 - 10.4 07/14/2016 [facility] HEMATOLOGY WBC 7.9 K/CMM 3.7 - 10.4 07/14/2016 [facility] HEMATOLOGY RDW 15.5 % 11.5 - 14.5 07/14/2016 [facility] HEMATOLOGY RBC 3.28 M/CMM 4.20 - 5.40 07/14/2016 [facility] HEMATOLOGY Platelet 220 K/CMM 133 - 450 07/14/2016 [facility] HEMATOLOGY MCHC 32.7 g/dL 32.0 - 36.0 07/14/2016 [facility] HEMATOLOGY MCH 27.7 pg 27.0 - 31.0 07/14/2016 [facility] HEMATOLOGY MCV 84.8 fL 80.0 - 98.0 07/14/2016 [facility] HEMATOLOGY Hct 27.8 % 36.0 - 48.0 07/14/2016 [facility] HEMATOLOGY Hgb 9.1 g/dL 12.0 - 16.0 07/14/2016 [facility] CHEM PANEL Amylase Lvl 90 unit/L 25 - 115 07/13/2016 [facility] CHEM PANEL Lipase Lvl 153 unit/L 73 - 393 07/13/2016 [facility] CHEM PANEL Globulin 3.9 g/dL 2.7 - 4.2 07/13/2016 [facility] CHEM PANEL B/C Ratio 15 6 - 25 07/13/2016 [facility] CHEM PANEL A/G Ratio 0.6 0.7 - 1.6 07/13/2016 [facility] CHEM PANEL AGAP 11.0 meq/L 10.0 - 20.0 07/13/2016 [facility] CHEM PANEL AST 15 unit/L 0 - 37 07/13/2016 [facility] CHEM PANEL ALT 7 unit/L 0 - 65 07/13/2016 [facility] CHEM PANEL Bili Total 0.8 mg/dL 0.2 - 1.3 07/13/2016 [facility] CHEM PANEL Alk Phos 94 unit/L 39 - 136 07/13/2016 [facility] CHEM PANEL Albumin Lvl 2.5 g/dL 3.5 - 5.0 07/13/2016 [facility] CHEM PANEL Glucose Lvl 78 mg/dL 70 - 99 07/13/2016 [facility] CHEM PANEL eGFR 87 mL/min/1.73m2 07/13/2016 Result Comment: The eGFR is calculated using the CKD-EPI formula. In most young, healthy individuals the eGFR will be >90 mL/min/1.73m2. The eGFR declines with age. An eGFR of 60-89 may be normal in some populations, particularly the elderly, for whom the CKD-EPI formula has not been extensively validated. Use of the eGFR is not recommended in the following populations: Individuals with unstable creatinine concentrations, including patients and those with serious co-morbid conditions. Patients with extremes in muscle mass or diet. The data above are obtained from the National Kidney Disease Education Program (NKDEP) which additionally recommends that when the eGFR is used in patients with extremes of body mass index for purposes of drug dosing, the eGFR should be multiplied by the estimated BMI. [facility] CHEM PANEL Creatinine Lvl 0.73 mg/dL 0.50 - 1.40 07/13/2016 [facility] CHEM PANEL BUN 11 mg/dL 7 - 22 07/13/2016 [facility] CHEM PANEL Total Protein 6.4 g/dL 6.4 - 8.4 07/13/2016 [facility] CHEM PANEL Chloride Lvl 97 meq/L 95 - 109 07/13/2016 [facility] CHEM PANEL Potassium Lvl 4.0 meq/L 3.5 - 5.1 07/13/2016 [facility] CHEM PANEL Calcium Lvl 8.1 mg/dL 8.5 - 10.5 07/13/2016 [facility] CHEM PANEL CO2 29 meq/L 24 - 32 07/13/2016 [facility] CHEM PANEL Sodium Lvl 133 meq/L 135 - 145 07/13/2016 [facility] HEMATOLOGY MCV 83.4 fL 80.0 - 98.0 07/13/2016 [facility] RBC 3.52 M/CMM 4.20 - 5.40 07/13/2016 [facility] Hgb 9.9 g/dL 12.0 - 16.0 07/13/2016 [facility] WBC 10.8 K/CMM 3.7 - 10.4 07/13/2016 [facility] Hct 29.4 % 36.0 - 48.0 07/13/2016 [facility] MPV 7.5 fL 7.4 - 10.4 07/13/2016 [facility] MCHC 33.8 g/dL 32.0 - 36.0 07/13/2016 [facility] RDW 15.1 % 11.5 - 14.5 07/13/2016 [facility] Platelet 230 K/CMM 133 - 450 07/13/2016 [facility] MCH 28.2 pg 27.0 - 31.0 07/13/2016 [facility] Monocytes # 1.2 K/CMM 0.0 - 0.8 07/13/2016 [facility] Lymphocytes # 1.7 K/CMM 1.0 - 5.5 07/13/2016 [facility] Eosinophils # 0.2 K/CMM 0.0 - 0.5 07/13/2016 [facility] Basophils # 0.1 K/CMM 0.0 - 0.2 07/13/2016 [facility] Segs-Bands # 7.7 K/CMM 1.5 - 8.1 07/13/2016 [facility] HEMATOLOGY Basophils 0.5 % 0.0 - 1.0 07/13/2016 [facility] HEMATOLOGY Segs 70.5 % 45.0 - 75.0 07/13/2016 [facility] HEMATOLOGY Monocytes 11.3 % 2.0 - 12.0 07/13/2016 [facility] HEMATOLOGY Eosinophils 2.3 % 0.0 - 4.0 07/13/2016 [facility] HEMATOLOGY Lymphocytes 15.4 % 20.0 - 40.0 07/13/2016 [facility] CHEM PANEL Lipase Lvl 1043 unit/L 73 - 393 07/12/2016 [facility] CHEM PANEL Amylase Lvl 415 unit/L 25 - 115 07/12/2016 [facility] HEMATOLOGY Basophils 0.5 % 0.0 - 1.0 07/12/2016 [facility] HEMATOLOGY Segs-Bands # 7.2 K/CMM 1.5 - 8.1 07/12/2016 [facility] HEMATOLOGY Eosinophils 1.7 % 0.0 - 4.0 07/12/2016 [facility] HEMATOLOGY Monocytes 10.7 % 2.0 - 12.0 07/12/2016 [facility] HEMATOLOGY Lymphocytes 15.6 % 20.0 - 40.0 07/12/2016 [facility] HEMATOLOGY Segs 71.5 % 45.0 - 75.0 07/12/2016 [facility] HEMATOLOGY Basophils # 0.1 K/CMM 0.0 - 0.2 07/12/2016 [facility] HEMATOLOGY Monocytes # 1.1 K/CMM 0.0 - 0.8 07/12/2016 [facility] HEMATOLOGY Eosinophils # 0.2 K/CMM 0.0 - 0.5 07/12/2016 [facility] HEMATOLOGY Lymphocytes # 1.6 K/CMM 1.0 - 5.5 07/12/2016 [facility] LIPIDS CHD Risk 3.58 3.90 - 5.80 07/12/2016 [facility] LIPIDS HDL 24 mg/dL >=61 mg/dL 07/12/2016 [facility] LIPIDS VLDL 12 07/12/2016 [facility] LIPIDS LDL (Calculated) 50 mg/dL <=99 mg/dL 07/12/2016 [facility] LIPIDS Trig 59 mg/dL <=149 mg/dL 07/12/2016 [facility] LIPIDS Chol 86 mg/dL <=199 mg/dL 07/12/2016 [facility] SPECIAL CHEMISTRY Hgb A1C 5.9 % <=5.6 % 07/12/2016 [facility] MOLECULAR DIAGNOSTIC C difficile DNA Negative (07/11/16 2:11 PM) Negative 07/11/2016 [facility] URINE AND STOOL Occult Bld Stl Negative (07/11/16 2:11 PM) Negative 07/11/2016 [facility] CARDIAC ENZYMES Total CK 25 unit/L 12 - 191 07/11/2016 [facility] CARDIAC ENZYMES Troponin-I null 0.00 - 0.40 07/11/2016 [facility] CHEM PANEL Magnesium Lvl 2.6 mg/dL 1.8 - 2.4 07/11/2016 [facility] Abdomen RUQ US Abdomen RUQ US Abdomen RUQ US TECHNIQUE: Grayscale and color Doppler images of the right upper quadrant of the abdomen were performed with a curvilinear transducer. Static images are submitted for review. CLINICAL HX: Abdominal pain, acute; COMPARISON: CT abdomen pelvis 07/11/2016 FINDINGS: LIVER: Mild nonspecific heterogeneity in the echotexture of the liver indicates hepatocellular disease. GALL BLADDER AND BILE DUCTS: Question tiny gallbladder wall polyp. No definite evidence for gall stones. Gallbladder is distended. CBD measures 4.5 mm. PANCREAS: Pancreas is partially obscured by bowel gas. Visualized portion of the pancreas is heterogeneous in appearance and there is small amount of peripancreatic fluid. Right kidney: Right kidney demonstrates normal echotexture and size and reveals no gross masses or any evidence for hydronephrosis. Maximal sagittal diameter of the right kidney is 10.4 cm. Vascular: Midline structures are partially obscured due to bowel gas. Visualized portion of the IVC is unremarkable. Ascites: Small amount of perihepatic and peripancreatic fluid is visualized.. No significant effusion is noted on the right. IMPRESSION: Findings consistent with patient's known history of pancreatitis. Small amount of peripancreatic and perihepatic fluid is present. Gallbladder is distended. No obvious gallstones. Mild nonspecific heterogeneity in the echotexture of the liver indicates hepatocellular disease. No other significant sonographic abnormality is noted in the RUQ of the abdomen. SL: [id number] 07/11/2016 - - Read by: Jake Luis MD Dictated Date/time: 07/11/16 16:36 Electronically Signed by: Jake Luis MD 07/11/16 16:41 FINAL REPORT [facility] ED Abdomen/Pelvis IV contrast only CT ED Abdomen/Pelvis IV contrast only CT Patient Name: CORDELIA DOWLING : 1950; Age: 65 years y/o Female MR: [id number] * I. COMPUTED TOMOGRAPHY SCAN OF THE ABDOMEN with contrast. * II. COMPUTED TOMOGRAPHY SCAN OF THE PELVIS with contrast HISTORY: Generalized acute nonspecific abdominal pain.; COMPARISON: There are no prior CT studies of the abdomen or pelvis available. An abdominal ultrasound of 04/01/2012 and images through the upper abdomen of a noncontrast chest computed tomography scan of 03/27/2016 were reviewed. TECHNIQUE: I. COMPUTED TOMOGRAPHY SCAN OF THE ABDOMEN with contrast: Helical CT images were obtained on a multidetector computed tomography scanner from the domes the diaphragms to the iliac crests following the intravenous administration of nonionic iodinated contrast. Oral contrast was not provided. II. COMPUTED TOMOGRAPHY SCAN OF THE PELVIS with contrast: Helical CT images were obtained on a multidetector computed tomography scanner from the iliac crests to the pubic symphysis following the intravenous administration of nonionic iodinated contrast. Oral contrast was not provided. Coronal and sagittal reconstructions were obtained. CT radiation dose DLP: 955 mGy-cm FINDINGS: There are findings consistent with moderate pancreatitis. There is mild enlargement of the head of the pancreas and moderate ill-defined attenuation in the peripancreatic region. There is also a minimal amount of ill- defined fluid extending into the left anterior pararenal space and left paracolic gutter. There are 2 very small (on the order of 5 mm low-density areas in the tail the pancreas possibly representing small pancreatic cysts. No discrete pancreatic mass is seen. There are a few tiny pancreatic calcifications. There are no diffuse pancreatic calcifications to suggest significant chronic pancreatitis. There is no evidence of pancreatic necrosis or pancreatic abscess. There is a minimal amount of free fluid within the pelvis. There is no significant ascites. There is no free intraperitoneal gas, significant intra-abdominal fluid, or hemorrhage. There is mild distention of the gallbladder. No calcified gallstones are identified. It is noted that no gallstones were demonstrated on the abdominal ultrasound from March 2012. However, repeat right upper quadrant ultrasound is suggested. There are mild diffuse fatty changes involving the liver. The liver is otherwise unremarkable. No focal lesions are seen. The spleen, and adrenal glands are normal in appearance. The kidneys are normal in size and show good, symmetrical excretion without hydronephrosis. The right kidney measures approximately 10.2 cm in length. The left kidney measures approximately 11.4 cm in length. There is mild bilateral renal cortical scarring. Also noted is a small (approximately 3 mm) right lower pole renal calculus. No other urinary tract calculi are seen. No focal renal lesions are visualized. There are a few mildly prominent small bowel loops, probable mild ileus. There is no evidence of bowel obstruction. The gastrointestinal structures are otherwise unremarkable. A normal appendix was visualized. Evaluation of the gastrointestinal structures is limited due to lack of oral contrast. No mass or adenopathy is seen within the abdomen or pelvis. There are extensive atherosclerotic calcifications involving the abdominal aorta and iliac arteries. The aorta is normal in caliber. The uterus is not visualized. Presumably, the patient has had a prior hysterectomy. The visualized lung bases are clear. There are no infiltrates or pleural effusions. There is moderate bronchiectasis in the left lower lobe. A previous chest computed tomography scan, these were filled with mucus. Now are predominantly filled with gas. There are also mild to moderate interstitial changes in the left base. There are mild interstitial changes in the right base. There are mild emphysematous changes. The heart is normal in size. There is no pericardial effusion. There are extensive coronary artery calcifications. There is moderate thoracolumbar scoliosis. Severe degenerative disc disease is noted at L2-L3. There are scattered degenerative changes elsewhere within the visualized spine. There is degenerative facet disease in the mid and lower lumbosacral region. The osseous structures are otherwise unremarkable. Clear no blastic or destructive lesions. IMPRESSION: 1. Findings consistent with moderate pancreatitis. 2. There is no evidence of pancreatic necrosis, pancreatic abscess, pseudocyst formation, or significant intra-abdominal fluid. 3. 2 tiny ill-defined low-density areas are noted in the tail the pancreas, possible tiny cyst. 4. Findings consistent with a mild ileus. 5. Mild distention of the gallbladder. Due to this and the presence of pancreatitis, a right upper quadrant ultrasound is suggested. 6. Mild diffuse fatty change involving the liver. 7. Very small right lower pole renal calculus. 8. Status post hysterectomy. 9. Extensive atherosclerosis including coronary artery calcifications. 10. Chronic changes in the visualized lungs including bronchiectasis and interstitial changes in the left lower lobe, mild interstitial changes in the right lower lobe, and mild emphysematous changes. 11. Moderate thoracolumbar scoliosis with severe degenerative change at L2-L3. There are scattered degenerative changes elsewhere within the spine including degenerative facet disease in the lower lumbosacral region. SL: [id number] 07/11/2016 - - Read by: Jin Sheldon MD Dictated Date/time: 07/11/16 11:42 Electronically Signed by: Jin Sheldon MD 07/11/16 11:59 FINAL REPORT [facility] Brain wo contrast CT Brain wo contrast CT EXAM: CT BRAIN WITHOUT CONTRAST DATE: 04/03/2016 12:48 PM CDT INDICATION: Confusion COMPARISON: March 28, 2016 TECHNIQUE: Routine axial CT images of the brain were obtained IV contrast: None. FINDINGS: Non-contrast images of the head demonstrate no edema, hemorrhage, mass lesion or other acute intracranial abnormality. Mild chronic microvascular ischemic changes are again identified The brain has normal attenuation and kapoor-white matter distinction. The ventricles are normal. The basal cisterns and sulci are normal in size. The paranasal sinuses, orbits and mastoids are unremarkable. IMPRESSION: Unchanged examination. 04/03/2016 - - Read by: Ramírez Sanchez Dictated Date/time: 04/03/16 15:51 Electronically Signed by: Ramírez Sanchez 04/03/16 15:57 FINAL REPORT [facility] CHEM PANEL Magnesium Lvl 2.1 mg/dL 1.8 - 2.4 03/31/2016 [facility] CHEM PANEL Glucose Lvl 108 mg/dL 70 - 99 03/31/2016 [facility] CHEM PANEL Chloride Lvl 104 meq/L 95 - 109 03/31/2016 [facility] CHEM PANEL Sodium Lvl 135 meq/L 135 - 145 03/31/2016 [facility] CHEM PANEL AGAP 12.7 meq/L 10.0 - 20.0 03/31/2016 [facility] CHEM PANEL Potassium Lvl 3.7 meq/L 3.5 - 5.1 03/31/2016 [facility] CHEM PANEL BUN 21 mg/dL 7 - 22 03/31/2016 [facility] CHEM PANEL Creatinine Lvl 0.93 mg/dL 0.50 - 1.40 03/31/2016 [facility] CHEM PANEL eGFR 65 mL/min/1.73m2 03/31/2016 Result Comment: The eGFR is calculated using the CKD-EPI formula. In most young, healthy individuals the eGFR will be >90 mL/min/1.73m2. The eGFR declines with age. An eGFR of 60-89 may be normal in some populations, particularly the elderly, for whom the CKD-EPI formula has not been extensively validated. Use of the eGFR is not recommended in the following populations: Individuals with unstable creatinine concentrations, including patients and those with serious co-morbid conditions. Patients with extremes in muscle mass or diet. The data above are obtained from the National Kidney Disease Education Program (NKDEP) which additionally recommends that when the eGFR is used in patients with extremes of body mass index for purposes of drug dosing, the eGFR should be multiplied by the estimated BMI. [facility] CHEM PANEL Calcium Lvl 8.3 mg/dL 8.5 - 10.5 03/31/2016 [facility] CHEM PANEL CO2 22 meq/L 24 - 32 03/31/2016 [facility] HEMATOLOGY Platelet 197 K/CMM 133 - 450 03/31/2016 [facility] HEMATOLOGY MPV 7.3 fL 7.4 - 10.4 03/31/2016 [facility] HEMATOLOGY RDW 15.5 % 11.5 - 14.5 03/31/2016 [facility] HEMATOLOGY MCHC 34.3 g/dL 32.0 - 36.0 03/31/2016 [facility] HEMATOLOGY MCV 83.0 fL 80.0 - 98.0 03/31/2016 [facility] HEMATOLOGY MCH 28.5 pg 27.0 - 31.0 03/31/2016 [facility] HEMATOLOGY Hct 25.3 % 36.0 - 48.0 03/31/2016 [facility] HEMATOLOGY Hgb 8.7 g/dL 12.0 - 16.0 03/31/2016 [facility] HEMATOLOGY WBC 8.3 K/CMM 3.7 - 10.4 03/31/2016 [facility] HEMATOLOGY RBC 3.05 M/CMM 4.20 - 5.40 03/31/2016 [facility] HEMATOLOGY MCHC 33.6 g/dL 32.0 - 36.0 03/30/2016 [facility] HEMATOLOGY MCH 27.5 pg 27.0 - 31.0 03/30/2016 [facility] HEMATOLOGY Platelet 196 K/CMM 133 - 450 03/30/2016 [facility] HEMATOLOGY RDW 16.2 % 11.5 - 14.5 03/30/2016 [facility] HEMATOLOGY MPV 7.3 fL 7.4 - 10.4 03/30/2016 [facility] HEMATOLOGY Hct 25.8 % 36.0 - 48.0 03/30/2016 [facility] HEMATOLOGY Hgb 8.7 g/dL 12.0 - 16.0 03/30/2016 [facility] HEMATOLOGY MCV 82.0 fL 80.0 - 98.0 03/30/2016 [facility] HEMATOLOGY RBC 3.15 M/CMM 4.20 - 5.40 03/30/2016 [facility] HEMATOLOGY WBC 10.8 K/CMM 3.7 - 10.4 03/30/2016 [facility] CHEM PANEL Magnesium Lvl 1.5 mg/dL 1.8 - 2.4 03/29/2016 [facility] CHEM PANEL Phosphorus 2.7 mg/dL 2.5 - 4.5 03/29/2016 [facility] ELECTROLYTES CO2 23 meq/L 24 - 32 03/29/2016 [facility] ELECTROLYTES Calcium Lvl 7.9 mg/dL 8.5 - 10.5 03/29/2016 [facility] ELECTROLYTES BUN 16 mg/dL 7 - 22 03/29/2016 [facility] ELECTROLYTES Sodium Lvl 139 meq/L 135 - 145 03/29/2016 [facility] ELECTROLYTES Potassium Lvl 3.8 meq/L 3.5 - 5.1 03/29/2016 [facility] ELECTROLYTES Creatinine Lvl 0.93 mg/dL 0.50 - 1.40 03/29/2016 [facility] ELECTROLYTES Chloride Lvl 107 meq/L 95 - 109 03/29/2016 [facility] ELECTROLYTES eGFR 65 mL/min/1.73m2 03/29/2016 Result Comment: The eGFR is calculated using the CKD-EPI formula. In most young, healthy individuals the eGFR will be >90 mL/min/1.73m2. The eGFR declines with age. An eGFR of 60-89 may be normal in some populations, particularly the elderly, for whom the CKD-EPI formula has not been extensively validated. Use of the eGFR is not recommended in the following populations: Individuals with unstable creatinine concentrations, including patients and those with serious co-morbid conditions. Patients with extremes in muscle mass or diet. The data above are obtained from the National Kidney Disease Education Program (NKDEP) which additionally recommends that when the eGFR is used in patients with extremes of body mass index for purposes of drug dosing, the eGFR should be multiplied by the estimated BMI. [facility] ELECTROLYTES Glucose Lvl 104 mg/dL 70 - 99 03/29/2016 [facility] ELECTROLYTES AGAP 12.8 meq/L 10.0 - 20.0 03/29/2016 [facility] HEMATOLOGY Lymphocytes # 2.4 K/CMM 1.0 - 5.5 03/29/2016 [facility] HEMATOLOGY Monocytes # 1.5 K/CMM 0.0 - 0.8 03/29/2016 [facility] HEMATOLOGY Eosinophils 0.1 % 0.0 - 4.0 03/29/2016 [facility] HEMATOLOGY Basophils 0.3 % 0.0 - 1.0 03/29/2016 [facility] HEMATOLOGY Monocytes 12.2 % 2.0 - 12.0 03/29/2016 [facility] HEMATOLOGY Segs-Bands # 8.2 K/CMM 1.5 - 8.1 03/29/2016 [facility] HEMATOLOGY Segs 67.9 % 45.0 - 75.0 03/29/2016 [facility] HEMATOLOGY Lymphocytes 19.5 % 20.0 - 40.0 03/29/2016 [facility] HEMATOLOGY WBC 12.1 K/CMM 3.7 - 10.4 03/29/2016 [facility] HEMATOLOGY RBC 3.51 M/CMM 4.20 - 5.40 03/29/2016 [facility] HEMATOLOGY RDW 15.5 % 11.5 - 14.5 03/29/2016 [facility] HEMATOLOGY Platelet 186 K/CMM 133 - 450 03/29/2016 [facility] HEMATOLOGY MPV 7.2 fL 7.4 - 10.4 03/29/2016 [facility] HEMATOLOGY Hgb 9.6 g/dL 12.0 - 16.0 03/29/2016 [facility] HEMATOLOGY Hct 29.3 % 36.0 - 48.0 03/29/2016 [facility] HEMATOLOGY MCV 83.6 fL 80.0 - 98.0 03/29/2016 [facility] HEMATOLOGY MCH 27.4 pg 27.0 - 31.0 03/29/2016 [facility] HEMATOLOGY MCHC 32.8 g/dL 32.0 - 36.0 03/29/2016 [facility] BLOOD BANK RESULTS Antibody Scrn Negative (03/28/16 1:46 PM) 03/28/2016 [facility] BLOOD BANK RESULTS ABO/Rh O POS 03/28/2016 [facility] CARDIAC ENZYMES Troponin-I null 0.00 - 0.40 03/28/2016 [facility] CHEM PANEL Ammonia 32.0 umol/L <=45.0 uMol/L 03/28/2016 [facility] Chest 1view DX Chest 1view DX EXAM: XR CHEST 1 VIEW DATE: 03/28/2016 5:09 PM CDT INDICATION: Line Placement COMPARISON: 03/27/2016 TECHNIQUE: AP chest FINDINGS: New right IJ central venous line terminates in the superior vena cava approximately 4 cm cephalad to the right atrium. Electrocardiogram leads and electrodes overlie the chest. Dependent atelectasis is seen in the retrocardiac portion of the left lower lobe, similar to previous. Pulmonary vascularity is normal. The heart size is normal for technique. Plate and screws are partially visualized over the cervical spine. No acute osseous abnormality is seen. IMPRESSION: New right IJ central venous line appears appropriately positioned. 03/28/2016 - - Read by: Tom Munoz MD Dictated Date/time: 03/28/16 18:55 Electronically Signed by: Tom Munoz MD 03/28/16 18:56 FINAL REPORT [facility] Femur series DX Femur series DX EXAM: XR RIGHT FEMUR 2 VIEWS DATE: 03/28/2016 12:32 PM CDT INDICATION: POST OP XRAY IN OR COMPARISON: Right femur series 03/28/2016 at 1:21 AM TECHNIQUE: AP and lateral radiographs of the distal right femur DISCUSSION: Generalized diminished bone mineral density. Satisfactory alignment of the perihardware distal femur fracture post fixation using locking plate and screws. No hardware malalignment. Lateral thigh soft tissue gas and skin mar ybeth. Lateral thigh surgical drain. IMPRESSION: Satisfactory appearance of distal femur perihardware fracture post internal fixation. 03/28/2016 - - Read by: Andrew Posey MD Dictated Date/time: 03/29/16 09:15 Electronically Signed by: Andrew Posey MD 03/29/16 09:16 FINAL REPORT [facility] Brain wo contrast CT Brain wo contrast CT EXAM: CT BRAIN WITHOUT CONTRAST DATE: 03/28/2016 10:36 AM CDT INDICATION: Acute cognitive change COMPARISON: None available TECHNIQUE: Routine axial CT images of the brain were obtained. DLP: 1369 mGy-cm FINDINGS: Non-contrast images of the head demonstrate no edema, hemorrhage, mass lesion or other acute intracranial abnormality. The brain has normal attenuation and kapoor-white matter distinction. The ventricles and sulci are prominent as are result of volume loss. Chronic inflammatory changes in the paranasal sinuses are identified, with mucoperiosteal thickening in the left maxillary sinus and complete opacification of the left sphenoid sinus. Some of the ethmoid air cells on the left and the right maxillary sinus demonstrates partial opacification. Changes of functional endoscopic sinus surgery are identified. IMPRESSION: 1. No acute intracranial abnormality. 2. Age-related volume loss. 3. Chronic inflammatory changes in the paranasal sinuses. 03/28/2016 - - Read by: Marli Coffey Dictated Date/time: 03/28/16 11:54 Electronically Signed by: Marli Coffey 03/28/16 11:57 FINAL REPORT [facility] ELECTROLYTES Chloride Lvl 108 meq/L 95 - 109 03/28/2016 [facility] ELECTROLYTES CO2 21 meq/L 24 - 32 03/28/2016 [facility] ELECTROLYTES eGFR 48 mL/min/1.73m2 03/28/2016 Result Comment: The eGFR is calculated using the CKD-EPI formula. In most young, healthy individuals the eGFR will be >90 mL/min/1.73m2. The eGFR declines with age. An eGFR of 60-89 may be normal in some populations, particularly the elderly, for whom the CKD-EPI formula has not been extensively validated. Use of the eGFR is not recommended in the following populations: Individuals with unstable creatinine concentrations, including patients and those with serious co-morbid conditions. Patients with extremes in muscle mass or diet. The data above are obtained from the National Kidney Disease Education Program (NKDEP) which additionally recommends that when the eGFR is used in patients with extremes of body mass index for purposes of drug dosing, the eGFR should be multiplied by the estimated BMI. [facility] ELECTROLYTES Calcium Lvl 8.9 mg/dL 8.5 - 10.5 03/28/2016 [facility] ELECTROLYTES AGAP 13.8 meq/L 10.0 - 20.0 03/28/2016 [facility] ELECTROLYTES Sodium Lvl 138 meq/L 135 - 145 03/28/2016 [facility] ELECTROLYTES Creatinine Lvl 1.20 mg/dL 0.50 - 1.40 03/28/2016 [facility] ELECTROLYTES Potassium Lvl 4.8 meq/L 3.5 - 5.1 03/28/2016 [facility] ELECTROLYTES Glucose Lvl 122 mg/dL 70 - 99 03/28/2016 [facility] ELECTROLYTES BUN 32 mg/dL 7 - 22 03/28/2016 [facility] Knee wo contrast w/3D CT Knee wo contrast w/3D CT EXAM: CT RIGHT KNEE WITHOUT CONTRAST, WITH 3-D DATE: 03/28/2016 4:17 AM CDT INDICATION: Fracture COMPARISON: Right knee series same date. TECHNIQUE: Volumetric CT acquisition of the right knee without contrast. Axial, sagittal and coronal as well as 3-D reconstructions. IV contrast: None. DLP: 262 mGy-cm FINDINGS: An obliquely oriented minimally comminuted periprosthetic fracture of the distal right femur is identified. The distal fragment is displaced laterally and posteriorly by about 1.2 cm in both directions. A 1.5 cm bony fragment is seen adjacent to the medial femoral condyle. A 1 cm cortical bony fragment abuts the posterior superior margin of the distal fragment (series 6, image 39). Anteriorly, the fracture extends along the superior margin of the femoral component of the patient's total right knee prosthesis. Assessment of the prosthesis is limited due to streak artifact. Otherwise it appears grossly intact and in place. The right knee joint remains well aligned. A small knee joint lipohemarthrosis is identified. IMPRESSION: 1. Minimally comminuted, mildly displaced, periprosthetic fracture of the distal femoral metaphysis with intra-articular extension into the knee joint. 2. Assessment of the patient's total right knee prosthesis is limited by streak artifact, otherwise it appears grossly intact. 3. Small knee joint lipohemarthrosis. 03/28/2016 - - This report was dictated by a Nub Card Tender/Fellow. I have personally reviewed the images as well as the Resident's interpretation and agree with the findings. Read by: Daphne Sepulveda MD Resident: Daphne Sepulveda MD Dictated Date/time: 03/28/16 06:21 Electronically Signed by: Orville Wood 03/28/16 07:18 FINAL REPORT [facility] ELECTROLYTES AGAP 12.2 meq/L 10.0 - 20.0 03/28/2016 [facility] ELECTROLYTES Globulin 5.2 g/dL 2.0 - 4.0 03/28/2016 [facility] ELECTROLYTES B/C Ratio 27 6 - 25 03/28/2016 [facility] ELECTROLYTES A/G Ratio 0.7 0.7 - 1.6 03/28/2016 [facility] ELECTROLYTES eGFR 37 mL/min/1.73m2 03/28/2016 Result Comment: The eGFR is calculated using the CKD-EPI formula. In most young, healthy individuals the eGFR will be >90 mL/min/1.73m2. The eGFR declines with age. An eGFR of 60-89 may be normal in some populations, particularly the elderly, for whom the CKD-EPI formula has not been extensively validated. Use of the eGFR is not recommended in the following populations: Individuals with unstable creatinine concentrations, including patients and those with serious co-morbid conditions. Patients with extremes in muscle mass or diet. The data above are obtained from the National Kidney Disease Education Program (NKDEP) which additionally recommends that when the eGFR is used in patients with extremes of body mass index for purposes of drug dosing, the eGFR should be multiplied by the estimated BMI. [facility] ELECTROLYTES Calcium Lvl 9.0 mg/dL 8.5 - 10.5 03/28/2016 [facility] ELECTROLYTES Albumin Lvl 3.4 g/dL 3.5 - 5.0 03/28/2016 [facility] ELECTROLYTES Total Protein 8.6 g/dL 6.4 - 8.4 03/28/2016 [facility] ELECTROLYTES AST 35 unit/L 0 - 37 03/28/2016 [facility] ELECTROLYTES ALT 21 unit/L 0 - 65 03/28/2016 [facility] ELECTROLYTES Alk Phos 74 unit/L 39 - 136 03/28/2016 [facility] ELECTROLYTES Bili Total 0.3 mg/dL 0.2 - 1.3 03/28/2016 [facility] ELECTROLYTES CO2 20 meq/L 24 - 32 03/28/2016 [facility] ELECTROLYTES Chloride Lvl 106 meq/L 95 - 109 03/28/2016 [facility] ELECTROLYTES Sodium Lvl 133 meq/L 135 - 145 03/28/2016 [facility] ELECTROLYTES BUN 40 mg/dL 7 - 22 03/28/2016 [facility] ELECTROLYTES Glucose Lvl 105 mg/dL 70 - 99 03/28/2016 [facility] ELECTROLYTES Creatinine Lvl 1.47 mg/dL 0.50 - 1.40 03/28/2016 [facility] ELECTROLYTES Potassium Lvl 5.2 meq/L 3.5 - 5.1 03/28/2016 [facility] HEMATOLOGY Basophils # 0.1 K/CMM 0.0 - 0.2 03/28/2016 [facility] HEMATOLOGY Eosinophils # 0.1 K/CMM 0.0 - 0.5 03/28/2016 [facility] HEMATOLOGY Monocytes # 0.8 K/CMM 0.0 - 0.8 03/28/2016 [facility] HEMATOLOGY Lymphocytes # 2.3 K/CMM 1.0 - 5.5 03/28/2016 [facility] HEMATOLOGY Segs-Bands # 6.2 K/CMM 1.5 - 8.1 03/28/2016 [facility] HEMATOLOGY Basophils 0.8 % 0.0 - 1.0 03/28/2016 [facility] HEMATOLOGY Eosinophils 0.7 % 0.0 - 4.0 03/28/2016 [facility] HEMATOLOGY Monocytes 8.2 % 2.0 - 12.0 03/28/2016 [facility] HEMATOLOGY Lymphocytes 24.2 % 20.0 - 40.0 03/28/2016 [facility] HEMATOLOGY Segs 66.1 % 45.0 - 75.0 03/28/2016 [facility] HEMATOLOGY INR 1.06 0.85 - 1.17 03/28/2016 [facility] HEMATOLOGY PT 14.1 s 12.0 - 14.7 03/28/2016 [facility] HEMATOLOGY PTT 33.1 s 22.9 - 35.8 03/28/2016 [facility] HEMATOLOGY RBC 3.89 M/CMM 4.20 - 5.40 03/28/2016 [facility] HEMATOLOGY Hgb 10.6 g/dL 12.0 - 16.0 03/28/2016 [facility] HEMATOLOGY Hct 32.2 % 36.0 - 48.0 03/28/2016 [facility] HEMATOLOGY MCV 83.0 fL 80.0 - 98.0 03/28/2016 [facility] HEMATOLOGY WBC 9.4 K/CMM 3.7 - 10.4 03/28/2016 [facility] HEMATOLOGY RDW 16.9 % 11.5 - 14.5 03/28/2016 [facility] HEMATOLOGY Platelet 318 K/CMM 133 - 450 03/28/2016 [facility] HEMATOLOGY MPV 7.5 fL 7.4 - 10.4 03/28/2016 [facility] HEMATOLOGY MCH 27.3 pg 27.0 - 31.0 03/28/2016 [facility] HEMATOLOGY MCHC 32.9 g/dL 32.0 - 36.0 03/28/2016 [facility] URINE AND STOOL UA Color Ltyellow 03/28/2016 [facility] URINE AND STOOL UA Urobilinogen <=1.0 mg/dL 0.1 - 1.0 03/28/2016 [facility] URINE AND STOOL UA Blood Negative (03/27/16 8:22 PM) Negative 03/28/2016 [facility] URINE AND STOOL UA Nitrite Negative (03/27/16 8:22 PM) Negative 03/28/2016 [facility] URINE AND STOOL UA Bili Negative *NA* (03/27/16 8:22 PM) Negative 03/28/2016 [facility] URINE AND STOOL UA Leuk Est Negative (03/27/16 8:22 PM) Negative 03/28/2016 [facility] URINE AND STOOL UA Sq Epi Few /LPF Few /LPF 03/28/2016 [facility] URINE AND STOOL UA Ketones Negative mg/dL Negative mg/dL 03/28/2016 [facility] URINE AND STOOL UA Spec Grav 1.015 <=1.030 03/28/2016 [facility] URINE AND STOOL UA pH 8.0 5.0 - 8.0 03/28/2016 [facility] URINE AND STOOL UA Protein Negative mg/dL Negative mg/dL 03/28/2016 [facility] URINE AND STOOL UA Glucose Negative mg/dL Negative mg/dL 03/28/2016 [facility] URINE AND STOOL UA Turbidity Clear (03/27/16 8:22 PM) Clear 03/28/2016 [facility] URINE AND STOOL UA WBC null 0 - 5 03/28/2016 [facility] URINE AND STOOL UA Mucus Few /LPF None Seen /LPF 03/28/2016 [facility] URINE AND STOOL UA Bacteria Many /HPF None Seen /HPF 03/28/2016 [facility] URINE AND STOOL UA RBC 1 /HPF 0 - 2 03/28/2016 [facility] Femur series DX Femur series DX EXAM: XR RIGHT FEMUR 2 VIEWS DATE: 03/28/2016 1:03 AM CDT INDICATION: Pain Post Trauma COMPARISON: 03/27/2016 right knee series TECHNIQUE: AP and lateral radiographs of the right femur. FINDINGS: The obliquely oriented, posterior and laterally displaced femoral fracture is again noted. Total right knee joint replacement is present. The proximal femur is intact. Soft tissue swelling and joint effusion persists. IMPRESSION: Displaced distal femoral intra-articular prosthetic fracture. Total right knee joint prosthesis in place. Intact proximal femur. 03/28/2016 - - This report was dictated by a Nub Card Tender/Fellow. I have personally reviewed the images as well as the Resident's interpretation and agree with the findings. Read by: Daphne Sepulveda MD Resident: Daphne Sepulveda MD Dictated Date/time: 03/28/16 04:37 Electronically Signed by: Orville Wood 03/28/16 07:02 FINAL REPORT [facility] Chest wo contrast CT Chest wo contrast CT CT CHEST WITHOUT CONTRAST INDICATION: Evaluate for possible small right pneumothorax seen in previous chest radiograph COMPARISON: Chest radiograph 03/27/2016 DISCUSSION: There is no pneumothorax. There are emphysematous changes of the lungs. There is mild of honeycomb-type fibrotic changes of the lung bases. The left lower lobe bronchus is severely stenotic and there is impacted bronchiectasis of the left lower lobe, with a finger in glove appearance. The proximal left upper lobe bronchus also appears stenotic, without bronchiectasis or opacification. No obvious mass is seen at the left hilum; although, evaluation is limited without the use of intravenous contrast. There is mild atelectasis of both lung bases. There is no pleural effusion. The trachea and right mainstem bronchus are patent. Grossly, no suspicious lymphadenopathy is seen. The heart is mildly enlarged. There is atherosclerotic calcification of the coronary arteries and aorta. The aorta is normal in caliber. Limited evaluation of the upper abdominal structures is grossly unremarkable. BONES: No acute bony abnormalities are seen. IMPRESSION: 1. No pneumothorax. 2. Impacted bronchiectasis of the left lower lobe. The main left lower lobe bronchus appears severely stenotic and the left upper lobe bronchus appears mildly stenotic. There is no obvious left hilar mass; although, evaluation is limited without the use of intravenous contrast. An obstructing endobronchial lesion cannot be excluded. 3. Emphysematous and fibrotic changes of the lungs. 4. Mild cardiomegaly. SL:16 03/27/2016 - - Read by: Mack Simpson MD Dictated Date/time: 03/28/16 00:48 Electronically Signed by: Mack Simpson MD 03/28/16 01:02 FINAL REPORT [facility] Chest 1view DX Chest 1view DX CHEST RADIOGRAPH SINGLE VIEW INDICATION: Posttraumatic chest pain COMPARISON: Chest radiograph 11/01/2015 IMPRESSION: There are emphysematous changes of the lungs. There is a lucent line at the right upper lung and increased lucency at the right lung base, suggesting potential minimal right pneumothorax. Repeat upright PA and lateral chest radiography or chest CT is recommended for further evaluation. This critical finding was discussed with the Emergency Room clinician at the time of dictation. There is left retrocardiac atelectasis. The cardiac silhouette and pulmonary vasculature are within normal limits. SL:16 03/27/2016 - - Read by: Mack Simpson MD Dictated Date/time: 03/27/16 21:21 Electronically Signed by: Mack Simpson MD 03/27/16 21:26 FINAL REPORT [facility] Pelvis AP DX Pelvis AP DX PELVIS RADIOGRAPH 1 VIEW CLINICAL INDICATION: Posttraumatic pelvic pain COMPARISON: None IMPRESSION: No acute bony abnormalities are visualized. SL:16 03/27/2016 - - Read by: Mack Simpson MD Dictated Date/time: 03/27/16 21:26 Electronically Signed by: Mack Simpson MD 03/27/16 21:27 FINAL REPORT [facility] Knee 3 views DX Knee 3 views DX Study: Knee 3 views DX 03/27/2016 7:19 PM CDT Patient Name: CORDELIA DOWLING MR: [id number] : 1950; Age: 65 years y/o Female Ordering Physician: Jeromy Thomas Clinical Indication: Acute right knee pain after trauma. Comparison: None RIGHT KNEE, 3 views: 1. Diffuse osteopenia is present status post right total knee replacement. 2. An acute mildly comminuted and displaced fracture is seen distally within the right femur extending to the margins of the femoral component of the prosthesis. Lateral and posterior displacement of the distal fragment and femoral component of the prosthesis is noted. 3. Mild to moderate diffuse soft tissue thickening with small joint effusion. SL: [id number] 03/27/2016 - - Read by: Anson Foley MD Dictated Date/time: 03/27/16 20:37 Electronically Signed by: Anson Foley MD 03/27/16 20:39 FINAL REPORT [facility] Chest 1view DX Chest 1view DX HISTORY: Line placement One view chest. Comparison 06/26/2012. Right arm PICC is present with the tip in the SVC. No new or acute infiltrate. No pleural effusion or pneumothorax. Heart size normal. IMPRESSION: New PICC line satisfactory. SL: 13 11/01/2015 - - Read by: Frankie Ruby MD Dictated Date/time: 11/01/15 08:55 Electronically Signed by: Frankie Ruby MD 11/01/15 08:55 FINAL REPORT [facility] PTT 31.9 s 22.9 - 35.8 07/28/2015 [facility] MPV 7.1 fL 7.4 - 10.4 07/28/2015 [facility] Platelet 253 K/CMM 133 - 450 07/28/2015 [facility] RDW 14.1 % 11.5 - 14.5 07/28/2015 [facility] MCV 85.8 fL 80.0 - 98.0 07/28/2015 [facility] Hct 32.9 % 36.0 - 48.0 07/28/2015 [facility] MCHC 31.9 g/dL 32.0 - 36.0 07/28/2015 [facility] MCH 27.4 pg 27.0 - 31.0 07/28/2015 [facility] WBC 6.7 K/CMM 3.7 - 10.4 07/28/2015 [facility] RBC 3.83 M/CMM 4.20 - 5.40 07/28/2015 [facility] Hgb 10.5 g/dL 12.0 - 16.0 07/28/2015 [facility] PT 13.1 s 12.0 - 14.7 07/28/2015 [facility] INR 0.96 0.85 - 1.17 07/28/2015 [facility] Eosinophils # 0.1 K/CMM 0.0 - 0.5 07/28/2015 [facility] Eosinophils 1.3 % 0.0 - 4.0 07/28/2015 [facility] Basophils 0.6 % 0.0 - 1.0 07/28/2015 [facility] Monocytes 12.4 % 2.0 - 12.0 07/28/2015 [facility] HEMATOLOGY Lymphocytes 35.3 % 20.0 - 40.0 07/28/2015 [facility] HEMATOLOGY Segs-Bands # 3.4 K/CMM 1.5 - 8.1 07/28/2015 [facility] HEMATOLOGY Lymphocytes # 2.4 K/CMM 1.0 - 5.5 07/28/2015 [facility] HEMATOLOGY Monocytes # 0.8 K/CMM 0.0 - 0.8 07/28/2015 [facility] HEMATOLOGY Segs 50.4 % 45.0 - 75.0 07/28/2015 [facility] HEMATOLOGY Platelet 314 K/CMM 133 - 450 08/02/2014 [facility] PTT 32.0 s 22.9 - 35.8 08/02/2014 2Interpretive Data: Heparin Therapeutic Range: 57 - 92 Seconds [facility] HEMATOLOGY PT 11.8 s 12.0 - 14.7 08/02/2014 [facility] INR 0.87 0.85 - 1.17 08/02/2014 1Interpretive Data: RECOMMENDED RANGES FOR PROTIME INR: 2.0-3.0 for most medical and surgical thromboembolic states. 2.5-3.5 for artificial heart valves and recurrent embolism. INR SHOULD BE USED ONLY FOR PATIENTS ON STABLE ANTICOAGULANT THERAPY. [facility] Vital Signs Vital Sign Value Date Comments Source Respitory Rate 18 04/08/2018 [facility] Temperature Oral (F) 99 F 04/08/2018 [facility] Heart Rate 99 04/08/2018 [facility] Systolic (mm Hg) 155 04/08/2018 [facility] Diastolic (mm Hg) 82 04/08/2018 [facility] Temperature Oral (F) 98.1 F 04/08/2018 [facility] Heart Rate 99 04/08/2018 [facility] Systolic (mm Hg) 163 04/08/2018 [facility] Diastolic (mm Hg) 89 04/08/2018 [facility] Respitory Rate 18 04/08/2018 [facility] Heart Rate 99 04/08/2018 [facility] Respitory Rate 18 04/08/2018 [facility] Systolic (mm Hg) 161 04/08/2018 [facility] Diastolic (mm Hg) 85 04/08/2018 [facility] Temperature Oral (F) 97.2 F 04/08/2018 [facility] Height 170.18 cm 03/30/2018 [facility] BMI Calculated 25.11 03/30/2018 [facility] Weight 72.727 03/30/2018 [facility] Systolic (mm Hg) 142 08/04/2017 [facility] Diastolic (mm Hg) 67 08/04/2017 [facility] Heart Rate 66 08/04/2017 [facility] Respitory Rate 16 08/04/2017 [facility] Temperature Oral (F) 98.2 F 08/04/2017 [facility] Respitory Rate 18 08/04/2017 [facility] Heart Rate 65 08/04/2017 [facility] Systolic (mm Hg) 143 08/04/2017 [facility] Diastolic (mm Hg) 59 08/04/2017 [facility] Heart Rate 72 08/04/2017 [facility] Systolic (mm Hg) 169 08/04/2017 [facility] Diastolic (mm Hg) 93 08/04/2017 [facility] Temperature Oral (F) 98.2 F 08/04/2017 [facility] Weight 68.182 08/04/2017 [facility] BMI Calculated 24.26 08/04/2017 [facility] Respitory Rate 18 08/04/2017 [facility] Height 167.64 cm 08/04/2017 [facility] Systolic (mm Hg) 121 07/16/2016 [facility] Diastolic (mm Hg) 56 07/16/2016 [facility] Respitory Rate 95 07/16/2016 [facility] Heart Rate 95 07/16/2016 [facility] Temperature Oral (F) 98.5 F 07/16/2016 [facility] Systolic (mm Hg) 113 07/16/2016 [facility] Diastolic (mm Hg) 71 07/16/2016 [facility] Respitory Rate 18 07/16/2016 [facility] Temperature Oral (F) 98.3 F 07/16/2016 [facility] Heart Rate 41 07/16/2016 [facility] Systolic (mm Hg) 126 07/16/2016 [facility] Diastolic (mm Hg) 77 07/16/2016 [facility] Respitory Rate 18 07/16/2016 [facility] Heart Rate 72 07/16/2016 [facility] Temperature Oral (F) 98.4 F 07/16/2016 [facility] Weight 70 07/11/2016 [facility] Weight 70 07/11/2016 [facility] BMI Calculated 24.91 07/11/2016 [facility] Height 167.64 cm 07/11/2016 [facility] Heart Rate 70 04/04/2016 [facility] Temperature Oral (F) 98.3 F 04/04/2016 [facility] Systolic (mm Hg) 136 04/04/2016 [facility] Diastolic (mm Hg) 77 04/04/2016 [facility] Respitory Rate 18 04/04/2016 [facility] Temperature Oral (F) 97.8 F 04/04/2016 [facility] Heart Rate 69 04/04/2016 [facility] Systolic (mm Hg) 127 04/04/2016 [facility] Diastolic (mm Hg) 79 04/04/2016 [facility] Respitory Rate 17 04/04/2016 [facility] Systolic (mm Hg) 126 04/04/2016 [facility] Diastolic (mm Hg) 77 04/04/2016 [facility] Temperature Oral (F) 98.5 F 04/04/2016 [facility] Heart Rate 74 04/04/2016 [facility] Respitory Rate 18 04/04/2016 [facility] BMI Calculated 24.58 03/28/2016 [facility] Weight 69.091 03/28/2016 [facility] Height 167.64 cm 03/28/2016 [facility] Heart Rate 70 03/28/2016 [facility] Respitory Rate 16 03/28/2016 [facility] Temperature Oral (F) 98.2 F 03/28/2016 [facility] Systolic (mm Hg) 118 03/28/2016 [facility] Diastolic (mm Hg) 70 03/28/2016 [facility] Respitory Rate 16 03/28/2016 [facility] Systolic (mm Hg) 118 03/28/2016 [facility] Diastolic (mm Hg) 80 03/28/2016 [facility] Heart Rate 70 03/28/2016 [facility] Temperature Oral (F) 98.2 F 03/28/2016 [facility] Systolic (mm Hg) 109 03/28/2016 [facility] Diastolic (mm Hg) 68 03/28/2016 [facility] Temperature Oral (F) 98.1 F 03/28/2016 [facility] BMI Calculated 24.26 03/28/2016 [facility] Weight 68.182 03/28/2016 [facility] Heart Rate 71 03/28/2016 [facility] Respitory Rate 16 03/28/2016 [facility] Height 167.64 cm 03/28/2016 [facility] Weight 156 12/05/2015 [facility] Height 64 12/05/2015 [facility] Temperature Oral (F) 98.1 F 12/05/2015 [facility] Heart Rate 74 12/05/2015 [facility] Diastolic (mm Hg) 80 12/05/2015 [facility] Systolic (mm Hg) 122 12/05/2015 Bry [facility] BMI Calculated 24.26 11/01/2015 [facility] Height 167.64 cm 11/01/2015 [facility] Weight 68.182 11/01/2015 [facility] Weight 156 09/05/2015 Bry Dumont Height 64 09/05/2015 [facility] Temperature Oral (F) 97.3 F 09/05/2015 [facility] Heart Rate 80 09/05/2015 [facility] Diastolic (mm Hg) 60 09/05/2015 Bry [facility] Systolic (mm Hg) 120 09/05/2015 [facility] Systolic (mm Hg) 182 08/01/2015 [facility] Diastolic (mm Hg) 90 08/01/2015 [facility] Systolic (mm Hg) 199 08/01/2015 [facility] Diastolic (mm Hg) 82 08/01/2015 [facility] Systolic (mm Hg) 190 08/01/2015 [facility] Diastolic (mm Hg) 77 08/01/2015 [facility] Respitory Rate 14 08/01/2015 [facility] Respitory Rate 15 08/01/2015 [facility] Respitory Rate 9 08/01/2015 [facility] Temperature Oral (F) 98.1 F 07/28/2015 [facility] Heart Rate 66 07/28/2015 [facility] Height 167.64 cm 07/28/2015 [facility] BMI Calculated 24.15 07/28/2015 [facility] Weight 67.869 07/28/2015 [facility] BMI Calculated 23.35 08/02/2014 [facility] Weight 63.636 08/02/2014 [facility] Height 165.1 cm 08/02/2014 [facility] Encounters Location Location Details Encounter Type Encounter Number Reason For Visit Attending Provider ADM Date DC Date Status Source [facility] Outpatient [id number] Ana Galarza 08/02/2014 08/03/2014 [facility] Ross Dumont MD 2m f/u [id number] 11/30/2014 11/30/2014 Bry Dumont MD 2m f/u [id number] 11/30/2014 11/30/2014 Bry Dumont MD 2m f/u [id number] 11/30/2014 11/30/2014 Bry Dumont MD 2m f/u [id number] 11/30/2014 11/30/2014 Bry Dumont MD 2m f/u [id number] 11/30/2014 11/30/2014 Bry Dumont MD 2m f/u [id number] 11/30/2014 11/30/2014 Bry Dumont MD 2m f/u [id number] 11/30/2014 11/30/2014 Bry Dumont MD 2m f/u [id number] 11/30/2014 11/30/2014 Bry Dumont MD 2m f/u [id number] 11/30/2014 11/30/2014 Bry Dumont MD 2m f/u [id number] 11/30/2014 11/30/2014 Bry Dumont MD 2m f/u [id number] 11/30/2014 11/30/2014 Bry Dumont MD 2m f/u [id number] 11/30/2014 11/30/2014 Bry Dumont MD 2m f/u [id number] 11/30/2014 11/30/2014 MD ERICA Angel [id number] 11/30/2014 11/30/2014 MD ERICA Angel [id number] 11/30/2014 11/30/2014 Bry Dumotn MD PROLJOSUE [id number] 11/30/2014 11/30/2014 MD ERICA Angel [id number] 11/30/2014 11/30/2014 MD ERICA Angel [id number] 11/30/2014 11/30/2014 MD ERICA Angel [id number] 11/30/2014 11/30/2014 MD ERICA Angel [id number] 11/30/2014 11/30/2014 MD ERICA Angel [id number] 11/30/2014 11/30/2014 MD ERICA Angel [id number] 11/30/2014 11/30/2014 MD ERICA Angel [id number] 11/30/2014 11/30/2014 MD ERICA Angel [id number] 11/30/2014 11/30/2014 Bry Dumont MD PROLIA [id number] 11/30/2014 11/30/2014 Bry Dumont MD PROLIA [id number] 11/30/2014 11/30/2014 Bry Dumont MD XR Results [id number] 12/16/2014 12/16/2014 Bry Dumont MD XR Results [id number] 12/16/2014 12/16/2014 Bry Dumont MD XR Results [id number] 12/16/2014 12/16/2014 Bry Dumont MD XR Results [id number] 12/16/2014 12/16/2014 Bry Dumont MD XR Results [id number] 12/16/2014 12/16/2014 Bry Dumont MD XR Results [id number] 12/16/2014 12/16/2014 Bry Dumont MD XR Results [id number] 12/16/2014 12/16/2014 Bry Dumont MD XR Results [id number] 12/16/2014 12/16/2014 Bry Dumont MD XR Results [id number] 12/16/2014 12/16/2014 Bry Dumont MD XR Results [id number]-n4po-l05t0o7neot3 12/16/2014 12/16/2014 Bry Dumont MD XR Results [id number] 12/16/2014 12/16/2014 Bry Dumont MD XR Results [id number] 12/16/2014 12/16/2014 Bry Dumont MD XR Results [id number]-3725-p7h9-1inl6508n95u 12/16/2014 12/16/2014 Bry Dumont MD Prolia [id number]-jue6p861164r 12/21/2014 12/21/2014 Bry Dumont MD Prolia 535d10lm-f1l4-846j-x2xo-89pco4i6z27d 12/21/2014 12/21/2014 Bry Dumont MD Prolia [id number]-2q4q-5g4m-31tu-3d4gd1y71707 12/21/2014 12/21/2014 Bry Dumont MD Prolia [id number]-489x-zo98e501kx4q 12/21/2014 12/21/2014 Byr Dumont MD Prolia [id number]-[id number] 12/21/2014 12/21/2014 Bry Dumont MD Prolia [id number] 12/21/2014 12/21/2014 Bry Dumont MD Prolia [id number]-db61-679m94nwm790 12/21/2014 12/21/2014 Bry Dumont MD Prolia 23gp69a8-1i82-0um2-ex2u-0vt46f358iri 12/21/2014 12/21/2014 Bry Dumont MD Prolia [id number]-2peb-9t6b-p8omlb6j3n33 12/21/2014 12/21/2014 Bry Dumont MD Prolia [id number]-84d8-2s9bt4ka6577 12/21/2014 12/21/2014 Bry Dumont MD Prolia [id number] 12/21/2014 12/21/2014 Bry Dumont MD Prolia 355rt97p-2s0y-7jux-25wx-609c680r05t0 12/21/2014 12/21/2014 Bry Dumont MD Prolia [id number]-[id number] 12/21/2014 12/21/2014 Bry Dumont MD 1 MO F/U 89f3g95g-e0j9-50c5-117k-77n0j2105u03 12/27/2014 12/27/2014 Bry Dumont MD 1 MO F/U [id number]-f862-d93vw1678m2f 12/27/2014 12/27/2014 Bry Dumont MD 1 MO F/U 69t6k1u0-4b6a-069h-5h44-0i2g2669653d 12/27/2014 12/27/2014 Bry Dumont MD 1 MO F/U [id number]-4wev-6z42-24a792ezlq3g 12/27/2014 12/27/2014 Bry Dumont MD 1 MO F/U e33ot92g-7478-5r73-b8jo-6a0ma690148m 12/27/2014 12/27/2014 Bry Dumont MD 1 MO F/U 4a92r4k3-5qf7-37x6-18td-cm7w1613kzv8 12/27/2014 12/27/2014 Bry Dumont MD 1 MO F/U [id number]-5b1x-a913-042d7069ea48 12/27/2014 12/27/2014 Bry Dumont MD 1 MO F/U [id number] 12/27/2014 12/27/2014 Bry Dumont MD 1 MO F/U [id number]-f952-734y-7g89-64l4dlq2z3b4 12/27/2014 12/27/2014 Bry Dumont MD 1 MO F/U c7i4168r-f8e4-48b2-s314-3z9j37p5mc3a 12/27/2014 12/27/2014 Bry Dumont MD 1 MO F/U 36f21m59-kxne-769o-l9c3-5u74e7d89906 12/27/2014 12/27/2014 Bry Dumont MD 1 MO F/U 46mv6o53-e1kx-82g0-x99q-1o82c1s48i6b 12/27/2014 12/27/2014 Bry Dumont MD 1 MO F/U [id number]-a1805xg8kj81 03/17/2015 03/17/2015 Bry Dumont MD 1 MO F/U 3ji39760-gvr8-6jw5-b037-r1a3e3rd9598 03/17/2015 03/17/2015 Bry Dumont MD 1 MO F/U g2tg2z02-4fd9-8007-8l2r-13eqrz239ipw 03/17/2015 03/17/2015 Bry Dumont MD 1 MO F/U u35u9xl1-6566-3465-809s-02y1e0e4v43z 03/17/2015 03/17/2015 Bry Dumont MD 1 MO F/U x63162t3-i7f5-4s31-15lx-9h1b3b7t23u8 03/17/2015 03/17/2015 Bry Dumont MD 1 MO F/U 418882g8-3971-8hkc-yah9-jr81939f11r4 03/17/2015 03/17/2015 Bry Dumont MD 1 MO F/U 7us376r4-l546-8290-gr72-r3706809m484 03/17/2015 03/17/2015 Bry Dumont MD 1 MO F/U [id number]-8e85-k945dhw29yw2 03/17/2015 03/17/2015 Bry Dumont MD 1 MO F/U 208t8no2-89f0-3r60-l2sd-abg82j645d4t 03/17/2015 03/17/2015 Bry Dumont MD 1 MO F/U 7980p5vu-q369-3t8h-jiwd-081y6496ua3t 03/17/2015 03/17/2015 Bry Dumont MD 1 MO F/U 95q809m0-02u5-44sv-6649-7625t993nvq7 03/17/2015 03/17/2015 Bry Dumont MD 1 MO F/U 0uxx1loa-9494-395j-u1mu-yinq307e85u3 03/17/2015 03/17/2015 Bry Dumont MD 1 MO F/U [id number]-80n6-hr01-16717082v0n4 03/17/2015 03/17/2015 Bry Dumont MD MRI b0w1gd48-z5t9-1370-ak8o-92b1d98d3s13 04/10/2015 04/10/2015 Bry Dumont MD MRI k1j2bkr3-q065-6qwu-bfz0-2v03lqz10g50 04/10/2015 04/10/2015 Bry Dumont MD MRI 13ssbi22-6szh-9815-hjs8-97h3ymmb9y8a 04/10/2015 04/10/2015 Bry Dumont MD MRI o71i9zb9-129j-2u0n-aov1-41rfj4l2c75s 04/10/2015 04/10/2015 Bry Dumont MD MRI [id number]-x357-[id number] 04/10/2015 04/10/2015 Bry Dumont MD MRI [id number]-o6m6-73dp552t03h9 04/10/2015 04/10/2015 Bry Dumont MD MRI 9jh34t2r-c836-0v23-tk13-7n37n8xd0a5h 04/10/2015 04/10/2015 Bry Dumont MD MRI 520wtn87-m4s0-7830-33f1-xn576228ey19 04/10/2015 04/10/2015 Bry Dumont MD MRI 0v56mm1r-0qi7-014v-x491-10s0205ffl85 04/10/2015 04/10/2015 Bry Dumont MD MRI f55t1iql-6i12-6qwf-v0wd-468hw97f96h7 04/10/2015 04/10/2015 Bry Dumont MD MRI lqs5lx15-and0-606z-5a2x-we220226nczt 04/10/2015 04/10/2015 Bry Dumont MD [facility] [id number]-1u55k968g435 04/10/2015 04/10/2015 Bry Dumont MD [facility] xh4gs16u-0hi0-9m8q-u80x-0391r332x494 04/10/2015 04/10/2015 Bry Dumont MD Ly[facility]/ Gabapentin [id number]-o6pp-ok451079g9oy 06/16/2015 06/16/2015 Bry Dumont MD [facility]/ Gabapentin 2i96we0t-p33c-0190-6kw3-pdt50b94r5af 06/16/2015 06/16/2015 Bry Dumont MD [facility]/ Gabapentin w07r8z8e-2ind-165i-7r6c-mvx02o729p2y 06/16/2015 06/16/2015 Bry Dumont MD [facility]/ Gabapentin j74016of-9327-71g3-ftju-2k3a7663i567 06/16/2015 06/16/2015 Bry Dumont MD [facility]/ Gabapentin 6478i1i9-s2tj-06v0-4844-57u58k02x610 06/16/2015 06/16/2015 Bry Dumont MD [facility]/ Gabapentin 2k370711-b4na-5v2a-6b59-052j127z2h36 06/16/2015 06/16/2015 Bry Dumont MD [facility]/ Gabapentin 5a152549-rh0p-57k6-ypko-cy120kcfpii2 06/16/2015 06/16/2015 Bry Dumont MD [facility]/ Gabapentin yja9t2td-386w-3br9-e21b-4u57y7r43w0x 06/16/2015 06/16/2015 Bry Dumont MD [facility]/ Gabapentin 31npf648-0wv8-8ij9-33h5-6c89v4h53tz7 06/16/2015 06/16/2015 Bry Dumont MD [facility]/ Gabapentin x2121557-980w-3yc0-5608-iyle9408t0te 06/16/2015 06/16/2015 Bry Dumont MD [facility]/ Gabapentin [id number]7767791rj52 06/16/2015 06/16/2015 Bry Dumont MD [facility]/ Gabapentin 188wh868-i9m1-06b8-y8a6-4v94224fy9j5 06/16/2015 06/16/2015 Bry Dumont MD [facility]/Gabapentin f0kzum9u-u33v-8839-zd55-6t4054935716 06/23/2015 06/23/2015 Bry Dumont MD [facility]/Gabapentin b967945q-1p04-715j-1615-0p8495tya5xy 06/23/2015 06/23/2015 Bry Dumont MD [facility]/Gabapentin 04fo370q-1ct6-59j7-70ng-cq306n3e3319 06/23/2015 06/23/2015 Bry Dumont MD Lyrica/Gabapentin e7roanv0-9pkl-5914-7135-3vf0d2gcnk7w 06/23/2015 06/23/2015 Bry Dumont MD [facility]/Gabapentin 94j7675y-8009-919k-bl2x-8882q1s95278 06/23/2015 06/23/2015 Bry Dumont MD Lyrica/Gabapentin 7kyj5631-s07j-1351-pjgp-70iu1ud120af 06/23/2015 06/23/2015 Bry Dumont MD Lyrica/Gabapentin 18k322ad-1dk8-693j-a054-z7scz2i3g382 06/23/2015 06/23/2015 Bry Dumont MD Lyrica/Gabapentin 417it8z2-j8e8-5hj9-wx4j-fz9084rs1026 06/23/2015 06/23/2015 Bry Dumont MD [facility]/Gabapentin l2pr8y0q-5q1x-0569-333p-yjk0581px111 06/23/2015 06/23/2015 Bry Dumont MD Lyrica/Gabapentin h5dk423p-j79p-2230-d931-1j7317u71400 06/23/2015 06/23/2015 Bry Dumont MD [facility]/Gabapentin 64082851-333j-7s29-r291-ge5cs60ihgl8 06/23/2015 06/23/2015 Bry Dumont MD [facility]/Gabapentin j9c7bs6p-nzo4-79ma-47ep-0s5q60tt930j 06/23/2015 06/23/2015 Bry Dumont MD [facility] n6j9f092-yb29-9832-[id number] 06/27/2015 06/27/2015 Bry Dumont MD [facility] 91p0y984-gr87-40t5-0f79-55b65ndd6y6n 06/27/2015 06/27/2015 Bry Dumont MD [facility] 827sh0w2-310t-5qv5-if8m-568ac5y78ec0 06/27/2015 06/27/2015 Bry Dumont MD [facility] 8i604g7g-791m-85b1-5rt5-8761073f7j2o 06/27/2015 06/27/2015 Bry Dumont MD [facility] 72ikd88e-r967-821r-9x02-y57f98o5301v 06/27/2015 06/27/2015 Bry Dumont MD [facility] 488134g7-y5ix-6ix7-308n-74uvk1otvt61 06/27/2015 06/27/2015 Bry Dumont MD [facility] [id number]-3330-755dh402qh1f 06/27/2015 06/27/2015 Bry Dumont MD [facility] 84w06zn6-dkal-9206-733h-s90dk290w112 06/27/2015 06/27/2015 Bry Dumont MD [facility] 39mrb550-4i80-849v-9q52-26y91pqj580f 06/27/2015 06/27/2015 Bry Dumont MD [facility] [id number] 06/27/2015 06/27/2015 Bry Dumont MD [facility] 9w6912m8-r035-7958-l370-bx29a2gk11y3 06/27/2015 06/27/2015 Bry Dumont MD [facility] [id number]-8v2r-9794-j46402334w99 06/27/2015 06/27/2015 Bry Dumont MD Refill- Flexeril 96j05c0q-m737-36wo-4r43-3bnuta61g66q 07/03/2015 07/03/2015 Bry Dumont MD Refill- Flexeril 6w2053p7-34x4-015b-x754-og8167k58947 07/03/2015 07/03/2015 Bry Dumont MD Refill- Flexeril x6va5uf1-050t-38x0-to53-6l4wyo54m605 07/03/2015 07/03/2015 Bry Dumont MD Refill- Flexeril 8l4x9ll4-2m91-9842-zi35-4007832168uo 07/03/2015 07/03/2015 Bry Dumont MD Refill- Flexeril 8nd88281-3381-1229-1o4b-699ql0vdfx61 07/03/2015 07/03/2015 Bry Dumont MD Refill- Flexeril h0w89yd9-8g97-7m22-is80-70fm17266jm7 07/03/2015 07/03/2015 Bry Dumont MD Refill- Flexeril sv29c816-j524-94w2-rbhv-52gqm059qu51 07/03/2015 07/03/2015 Bry Dumont MD Refill- Flexeril l3843x99-6524-963y-f4b2-84725ct0x28e 07/03/2015 07/03/2015 Bry Dumont MD Refill- Flexeril 1173v03g-5896-9jvn-7a31-27w61c21np71 07/03/2015 07/03/2015 Bry Dumont MD Refill- Flexeril zb5t37mo-l09l-39u1-91r4-545l06m33455 07/03/2015 07/03/2015 Bry Dumont MD Refill- Flexeril xozz3fq0-78hc-736t-q0y2-3ips4h690e7r 07/03/2015 07/03/2015 Bry Dumont MD Refill- Flexeril ewc25w85-7l4e-9psr-44v3-yo1f83g66z3k 07/03/2015 07/03/2015 Bry Dumont MD vit d [id number]-4h9p-[id number] 07/03/2015 07/03/2015 Bry Dumnot MD vit d [id number]-j861-5960-0m3z-5z7swi4muii2 07/03/2015 07/03/2015 Bry Dumont MD vit d [id number]-fdvw-f9q42438cel3 07/03/2015 07/03/2015 Bry Dumont MD vit d [id number]-6m6l-75an-pgrz-454376odi04j 07/03/2015 07/03/2015 Bry Dumont MD vit d [id number]-6464-t1b0-3zz740318936 07/03/2015 07/03/2015 Bry Dumont MD vit d 8u2gb2iv-uc58-7fb3-7ek4-72y428ou16d6 07/03/2015 07/03/2015 Bry Dumnot MD vit d 4q1l6e8c-xbg1-8igt-b9k4-18224e2w229z 07/03/2015 07/03/2015 Bry Dumont MD vit d [id number]-f4vng5860b2h 07/03/2015 07/03/2015 Bry Dumont MD vit d [id number]-9868e32ys0ur 07/03/2015 07/03/2015 Bry Dumont MD vit d [id number]-[id number] 07/03/2015 07/03/2015 Bry Dumont MD vit d 65aa566r-g4f1-28a8-2gez-g23t3n736m9q 07/03/2015 07/03/2015 Bry Dumont MD vit d [id number]-mp86usf546nk 07/03/2015 07/03/2015 Bry Dumont MD Unknown 4mnu01f8-o9vy-2mc2-n4m1-7627l3kga22n 07/04/2015 07/04/2015 Bry Dumont MD Unknown [id number] 07/04/2015 07/04/2015 Bry Dumont MD Unknown sztazx77-a4i5-0j8b-5157-iz00t439n7yr 07/04/2015 07/04/2015 Bry uDmont MD Unknown f2h8qx88-fks8-68d9-j17y-8sog6986d805 07/04/2015 07/04/2015 Bry Dumont MD Unknown [id number]-[id number] 07/04/2015 07/04/2015 Bry Dumont MD Unknown [id number] 07/04/2015 07/04/2015 Bry Dumont MD Unknown [id number] 07/04/2015 07/04/2015 Bry Dumont MD Unknown [id number] 07/04/2015 07/04/2015 Bry Dumont MD Unknown [id number] 07/04/2015 07/04/2015 Bry Dumont MD Unknown [id number] 07/04/2015 07/04/2015 Bry Dumont MD Unknown [id number] 07/04/2015 07/04/2015 Bry Dumont MD Pending [facility] To [facility] [id number]-[id number]-8eb7h200qrjz 07/04/2015 07/04/2015 MD Mariposa Angel [id number]-64z8-8yvo-b6t4-753308s0644y 07/11/2015 07/11/2015 MD Mariposa Angel [id number]-572o-h955-vxz60m94i542 07/11/2015 07/11/2015 MD Mariposa Angel [id number]-9814-r299-11r1s3w08727 07/11/2015 07/11/2015 MD Mariposa Angel 366qg5n4-19j1-6471-r384-6506li416yu2 07/11/2015 07/11/2015 MD Mariposa Angel [id number]-[id number] 07/11/2015 07/11/2015 MD Mariposa Angel [id number]-09te-85nw-8eo89w74g8d0 07/11/2015 07/11/2015 MD Mariposa Angel [id number]-[id number]-yb66-973zdiwi0413 07/11/2015 07/11/2015 MD Mariposa Angel [id number]-zthx-33ttx9w9h390 07/11/2015 07/11/2015 MD Mariposa Angel e8dchw1n-[id number]-pg61-[id number] 07/11/2015 07/11/2015 MD Mariposa Angel [id number]-[id number] 07/11/2015 07/11/2015 MD Mariposa Angel [id number] 07/11/2015 07/11/2015 MD Mariposa Angel [id number] 07/11/2015 07/11/2015 Bry Dumont [facility] [phone] Fina Shannon 08/01/2015 08/01/2015 [facility] Ross Dumont MD Refill- Flexeril [id number] 08/07/2015 08/07/2015 Bry Dumont MD Refill- Flexeril [id number] 08/07/2015 08/07/2015 Bry Dumont MD Refill- Flexeril [id number]-[id number] 08/07/2015 08/07/2015 Bry Dumont MD Refill- Flexeril [id number]-t6x4-[id number] 08/07/2015 08/07/2015 Bry Dumont MD Refill- Flexeril [id number] 08/07/2015 08/07/2015 Bry Dumont MD Refill- Flexeril [id number] 08/07/2015 08/07/2015 Bry Dumont MD Refill- Flexeril d17mpwcl-[id number]-t09x-4tf1onodux56 08/07/2015 08/07/2015 Bry Dumont MD Refill- Flexeril [id number] 08/07/2015 08/07/2015 Bry Dumont MD Refill- Flexeril [id number] 08/07/2015 08/07/2015 Bry Dumont MD Refill- Flexeril [id number]-kc35u8v8m8e1 08/07/2015 08/07/2015 Bry Dumont MD Refill- Flexeril [id number] 08/07/2015 08/07/2015 Bry Dumont MD Refill- Flexeril [id number] 08/07/2015 08/07/2015 Bry Dumont MD DEXA [id number] 08/18/2015 08/18/2015 Bry Dumont MD DEXA [id number] 08/18/2015 08/18/2015 Bry Dumont MD DEXA [id number] 08/18/2015 08/18/2015 Bry Dumont MD DEXA [id number] 08/18/2015 08/18/2015 Bry Dumont MD DEXA [id number] 08/18/2015 08/18/2015 Bry Dumont MD DEXA [id number] 08/18/2015 08/18/2015 Bry Dumont MD DEXA [id number] 08/18/2015 08/18/2015 Bry Dumont MD DEXA [id number] 08/18/2015 08/18/2015 Bry Dumont MD DEXA [id number] 08/18/2015 08/18/2015 Bry Dumont MD DEXA [id number] 08/18/2015 08/18/2015 Bry Dumont MD DEXA [id number] 08/18/2015 08/18/2015 Bry Dumont MD Refill- Tramadol [id number]-[id number]-xhgk5h8kl7d3 08/28/2015 08/28/2015 Bry Dumont MD Refill- Tramadol [id number]-0qp4-oy188vprj6p5 08/28/2015 08/28/2015 Bry Dumont MD Refill- Tramadol [id number] 08/28/2015 08/28/2015 Bry Dumont MD Refill- Tramadol [id number] 08/28/2015 08/28/2015 Bry Dumont MD Refill- Tramadol [id number]-[id number]-[id number] 08/28/2015 08/28/2015 Bry Dumont MD Refill- Tramadol [id number] 08/28/2015 08/28/2015 Bry Dumont MD Refill- Tramadol [id number]-[id number] 08/28/2015 08/28/2015 Bry Dumont MD Refill- Tramadol hip3ki2d-92k8-80t4-9o11-vo121ryr6w32 08/28/2015 08/28/2015 Bry Dumont MD Refill- Tramadol [id number]-nx4a-m7uwy0q584z3 08/28/2015 08/28/2015 Bry Dumont MD Refill- Tramadol [id number] 08/28/2015 08/28/2015 Bry Dumont MD Refill- Tramadol [id number] 08/28/2015 08/28/2015 Bry Dumont MD Unknown [id number] 09/05/2015 09/05/2015 Bry Dumont MD Unknown [id number] 09/05/2015 09/05/2015 rBy Dumont MD Unknown [id number] 09/05/2015 09/05/2015 Bry Dumont MD Unknown [id number] 09/05/2015 09/05/2015 Bry Dumont MD [facility] [id number] 09/05/2015 09/05/2015 Bry Dumont MD [facility] [id number] 09/05/2015 09/05/2015 Bry Dumont MD [facility] [id number] 09/05/2015 09/05/2015 Bry Dumont MD [facility] [id number]-[id number] 09/05/2015 09/05/2015 Bry Dumont MD [facility] IV [id number] 09/05/2015 09/05/2015 Bry Dumont MD [facility] [id number]-jf87-[id number] 09/05/2015 09/05/2015 Bry Dumont MD [facility] [place] [id number] 09/05/2015 09/05/2015 Bry Dumont MD [facility] IV [id number] 09/05/2015 09/05/2015 Bry Dumont MD [facility] IV [id number] 09/05/2015 09/05/2015 Bry Dumont MD [facility] IV [id number] 09/13/2015 09/13/2015 [facility] [place] [id number] 09/13/2015 09/13/2015 MD SE[place] [place] [place] [id number] 09/13/2015 09/13/2015 MD [place] [id number] 09/13/2015 09/13/2015 MD [place] [place] [id number] 09/13/2015 09/13/2015 MD [place] [place] [id number] 09/13/2015 09/13/2015 MD [place] [place] [id number] 09/13/2015 09/13/2015 MD [place] [facility] [id number] 09/13/2015 09/13/2015 [facility] [id number]-[id number] 09/25/2015 09/25/2015 MD luana Angel [id number] 09/25/2015 09/25/2015 MD luana Angel [id number] 09/25/2015 09/25/2015 MD jose eduardo Angel [id number] 09/25/2015 09/25/2015 MD luana Angel [id number]-m8o6-[id number] 09/25/2015 09/25/2015 MD luana Angel [id number] 09/25/2015 09/25/2015 MD jose eduardo Angel [id number]-qi2j-[id number] 09/25/2015 09/25/2015 Bry Dumont MD REFILL--VIT D [id number] 10/02/2015 10/02/2015 Bry Dumont MD REFILL--VIT D [id number] 10/02/2015 10/02/2015 Bry Dumont MD REFILL--VIT D [id number] 10/02/2015 10/02/2015 Bry Dumont MD REFILL--VIT D [id number] 10/02/2015 10/02/2015 Bry Dumont MD REFILL--VIT D [id number] 10/02/2015 10/02/2015 Bry Dumont MD REFILL--VIT D [id number] 10/02/2015 10/02/2015 Bry Dumont MD CALL BACK ON MEDS [id number] 10/03/2015 10/03/2015 Bry Dumont MD CALL BACK ON MEDS [id number] 10/03/2015 10/03/2015 Bry Dumont MD CALL BACK ON MEDS [id number] 10/03/2015 10/03/2015 Bry Dumont MD CALL BACK ON MEDS [id number] 10/03/2015 10/03/2015 Bry Dumont MD CALL BACK ON MEDS [id number] 10/03/2015 10/03/2015 Bry Dumont MD Refill- Flexeril [id number] 10/26/2015 10/26/2015 Bry Dumont MD Refill- Flexeril [id number]-q5ng0mpqudy5 10/26/2015 10/26/2015 Bry Dumont MD Refill- Flexeril [id number]-[id number] 10/26/2015 10/26/2015 Bry Dumont MD Refill- Flexeril [id number] 10/26/2015 10/26/2015 Bry Dumont [facility] Outpatient [id number] Anaher Hickeysavage 11/01/2015 11/02/2015 [facility] Ross Dumont MD 3 MTH FU [id number] 12/05/2015 12/05/2015 Bry Dumont MD 3 MTH FU [id number] 12/05/2015 12/05/2015 Bry Dumont MD [facility] [id number] 12/11/2015 12/11/2015 Bry Dumont [facility] [id number] Juan M Howardadeline 03/28/2016 03/28/2016 [facility] Inpatient [id number] Laverne Jerome 03/28/2016 04/04/2016 [facility] Inpatient [id number] Chidiwinnie Clementslisbeth 07/11/2016 07/16/2016 [facility] [place] [facility] [id number] Poya Renettamed 09/25/2016 09/26/2016 [facility] [place] [place] [facility] [id number] Nasiya Ahmed 10/18/2016 10/19/2016 [facility] [place] [place] [facility] [id number] Nasiya Ahmed 04/17/2017 04/18/2017 [facility] [place] [facility] Emergency [id number] Sandeep Kaci 08/04/2017 08/04/2017 [facility] [place] [facility] [id number] Tom Infante 10/03/2017 10/04/2017 [facility] [place] [facility] [place] [facility] [id number] Jitendra Beavers 12/16/2017 12/17/2017 [facility] Inpatient [id number] Nolvia White 03/30/2018 04/08/2018 [facility] Procedures Procedure Code Date Perfomer Comments Source Cervical laminectomy 032533357 [facility] section [id number] [facility] Nephroscopic lithotripsy of renal calculus [id number] [facility] Replacement of total knee joint [id number] [facility] Cervical laminectomy [id number] [facility] [place] section [id number] [facility] Nephroscopic lithotripsy of renal calculus [id number] [facility] [place] Replacement of total knee joint [id number] [facility] [place] Cervical laminectomy [id number] [facility] section [id number] [facility] Nephroscopic lithotripsy of renal calculus [id number] [facility] Replacement of total knee joint 703825204 [facility] Cervical laminectomy [id number] [facility] [place] [facility] [id number] [facility] [place] Nephroscopic lithotripsy of renal calculus [id number] [facility] [place] Replacement of total knee joint [id number] [facility]
[2018-08-20 23:14] LABS: INR 0.8; PARTIAL THROMBOPLASTIN TIME 28.2 seconds (23.8-35.5); PROTHROMBIN TIME 11.9 seconds (11.9-14.5)
[2018-08-20] MEDS: CEFTRIAXONE SOD 1 GM VIAL IV SCH (23:16)
[2018-08-20] MEDS ORDERED: POTASSIUM CHLORIDE 10MEQ/100ML 100 ML IV ONE (23:45)
[2018-08-21] VITALS (10 sets, daily range): BP systolic 129–184; BP diastolic 60–88
[2018-08-21] MEDS: ACETAMINOPHEN 325 MG TAB PO PRN ×3 (00:50→14:04)
[2018-08-21] MEDS ORDERED: POTASSIUM CHLORIDE 10MEQ EA PO SCH (09:00)
[2018-08-21] MEDS ORDERED: ASPIRIN 81 MG CHEW TAB PO SCH (09:00)
[2018-08-21] MEDS: CEFTRIAXONE SOD 1 GM VIAL IV SCH (11:30)
[2018-08-21] MEDS ORDERED: CARVEDILOL 3.125 MG TAB PO SCH (12:00)
[2018-08-21] MEDS ORDERED: BACLOFEN10 MG PO (12:30)
[2018-08-21] MEDS ORDERED: GABAPENTIN300 MG PO (12:30)
[2018-08-21] MEDS ORDERED: LEVOFLOXACIN 500 MG TAB PO SCH (12:45)
--- NOTE | 2018-08-21 13:18 | History and Physical ---
The patient is in observation. PCP: Louise Hallman MD SOFTWARE SALES CONSULTANT: Giana Ag MD CHIEF COMPLAINT: Right leg pain and weakness and vision changes. HISTORY OF PRESENT ILLNESS: The patient is a 67-year-old female with chronic pain. The patient has a urinary bladder stimulator to the left hip area. She also has had multiple surgical interventions to her lower extremities, more importantly on the right side where she was having some right-sided pain and weakness per patient. She also had eye surgery approximately 2 weeks ago. She has some visual changes on the left eye as well. The patient is otherwise stable. Apparently she failed her visual test. The patient is a little anxious but, otherwise, she is stable. She had no upper extremity weakness. No headaches. No nausea or vomiting. PAST MEDICAL HISTORY 1. History of hypertension. 2. History of kidney stone. 3. COPD. 4. Hepatitis C. 5. Depression. 6. Chronic neuropathy. 7. Cramping. 8. Osteoarthritis. 9. The patient has a urinary bladder stimulator, and she has urinary bladder spasm. MEDICATIONS: List is reviewed. ALLERGIES: NO KNOWN ALLERGIES. SOCIAL HISTORY: Patient lives at home. She does not smoke or use alcohol. No recreational drugs. REVIEW OF SYSTEMS: As mentioned above. PHYSICAL EXAMINATION GENERAL: Patient is in no acute distress. She is awake and alert. VITAL SIGNS: Temperature is 98. Blood pressure 159/72. Pulse rate 75. Respirations 18. HEENT: Normocephalic, atraumatic, anicteric. NECK: Supple grossly. PULMONARY: Clear. CARDIOVASCULAR: Regular rate and rhythm. ABDOMEN: Soft and unremarkable. EXTREMITIES: No gross cyanosis or edema. Multiple surgical scars in the right lower extremity. NEUROLOGIC: No gross focal deficit at this time. LABORATORY: Sodium is 139, potassium 5, chloride 104, bicarb 25, BUN 35, creatinine 1.3. Glucose 113. WBC 7.3, hemoglobin 11.6, hematocrit 36.7 and platelets 250. IMPRESSION: Right-sided weakness, etiology unclear, but most likely musculoskeletal due to the patient's right lower extremity pain with previous surgery. The patient has had multiple right knee surgeries and right femur surgery as well. PLAN: Carotid Doppler and echocardiogram. If those tests are negative, the patient should be ready to go home with a baby aspirin once a day. Patient had a CT scan of the brain, and there is no bleed. She has a urinary bladder stimulator; therefore, no MRI can be done. The patient is otherwise stable at this time. Discussed with the patient at length. Job#: [id number]
[2018-08-21] MEDS ORDERED: GABAPENTIN 300 MG CAP PO SCH (14:00)
[2018-08-21] MEDS ORDERED: BACLOFEN 10 MG TAB PO SCH (15:00)
[2018-08-21] MEDS ORDERED: BUPROPION HCL 100 MG TAB PO SCH (16:00)
[2018-08-21] MEDS ORDERED: AMLODIPINE BESYLATE 5 MG TAB PO SCH (16:00)
[2018-08-21] MEDS ORDERED: SERTRALINE HCL 50 MG TAB PO SCH (16:00)
[2018-08-21] MEDS ORDERED: FLUTICASONE PROPIONATE NASAL SPRAY NS SCH (17:00)
[2018-08-21] MEDS ORDERED: ATORVASTATIN 20 MG TAB PO SCH (21:00)
[2018-08-22] MEDS ORDERED: TAMSULOSIN HCL 0.4 MG CAP PO SCH (09:00)
== END 2018-08-21 16:51 | disposition home or self-care (01) ==
LOC: ER 16:51 → ERHOLD 22:25 → IMCU 08-21 00:12
PROVIDERS: ADMIT Internal Medicine; ATTEND Internal Medicine
DX: G83.11 Monoplegia of lower limb affecting right dominant side (principal); H53.8 Other visual disturbances; N30.90 Cystitis, unspecified without hematuria; I10 Essential (primary) hypertension; J44.9 Chronic obstructive pulmonary disease, unspecified; G35 Multiple sclerosis; Z87.442 Personal history of urinary calculi; Z87.440 Personal history of urinary (tract) infections; F41.9 Anxiety disorder, unspecified; Z87.891 Personal history of nicotine dependence; Z82.49 Family history of ischemic heart disease and other diseases of the circulatory system; G89.29 Other chronic pain
CPT/HCPCS: 36415 ×2; 70450; 71045; 80053; 81001; 82948; 83735; 85025; 85610; 85730; 93005; 93306; 93880; 94640; 97139; 99285; G0378 ×2; J0696 ×2; J2930; J3480